=== PATIENT | female | born 1950 | race Caucasian/White ===

== ENCOUNTER 2017-04-03 19:33 | Inpatient (IN) | payer MEDICARE, OTHER ==
[2017-04-03] MEDS ORDERED: IPRATROPIUM 0.5 MG/2.5 ML NEBU INHALATION STA (20:14)
[2017-04-03] MEDS ORDERED: ALBUTEROL NEBULIZED 2.5 MG/3 ML INHALATION STA (20:14)
[2017-04-03] MEDS ORDERED: methylPREDNISolone SOD SUCCI 125 MG/2 ML VIAL IV STA (20:14)
--- NOTE | 2017-04-03 20:18 | ED ---
General Adult HPI - General Chief complaint: Upper Respiratory Infection Stated complaint: Fever 101/Cough Time Seen by Provider: 04/03/17 20:04 Source: patient, RN notes reviewed Mode of arrival: ambulatory Limitations: no limitations - History of Present Illness Initial comments: 66 yo female history of hypertension, A. fib, COPD presenting with 5 days of fever chills and myalgias. Patient developed cough over the past 24 hours, this is tried nonproductive. Patient is accompanied by her son who is a nurse who states she also has had some mild confusion. He did give Tylenol prior to presentation. Patient denies any central chest pain. No known sick contacts.patient denies any abdominal pain, she denies nausea vomiting. Denies diarrhea. Denies dysuria. - Related Data Home Medications Medication Instructions Recorded Confirmed Albuterol Nebulized [Ventolin 2.5 mg INHALATION RT-QID PRN 04/22/15 04/03/17 Nebulized] Celecoxib [CeleBREX] 200 mg PO DAILY 04/22/15 04/03/17 Metoprolol Succinate [Toprol XL] 25 mg PO BID 04/22/15 04/03/17 Multivitamins, Thera [Multivitamin] 1 tab PO HS 04/22/15 04/03/17 Ranitidine HCl [Zantac] 150 mg PO DAILY 04/22/15 04/03/17 Rosuvastatin Calcium [Crestor] 5 mg PO HS 04/22/15 04/03/17 amLODIPine [Norvasc] 5 mg PO BID 04/22/15 04/03/17 Cholecalciferol (Vitamin D3) 4,000 unit PO HS 02/28/17 04/03/17 [Vitamin D3] Letrozole 2.5 mg PO HS 02/28/17 04/03/17 Lisinopril [Prinivil] 40 mg PO HS 02/28/17 04/03/17 Potassium Chloride ER [K-Dur 20] 20 meq PO HS 02/28/17 04/03/17 Rivaroxaban [Xarelto] 20 mg PO HS 02/28/17 04/03/17 traMADol HCl [Ultram] 50 - 100 mg PO Q8H PRN 02/28/17 04/03/17 cloNIDine HCL [Catapres] 0.1 mg PO BID 04/03/17 04/03/17 Allergies Allergy/AdvReac Type Severity Reaction Status Date / Time simvastatin [From Zocor] Allergy Unknown Verified 04/03/17 20:09 codeine AdvReac Nausea & Verified 04/03/17 20:09 Vomiting Penicillins AdvReac Nausea & Verified 04/03/17 20:09 Vomiting Review of Systems ROS Statement: Those systems with pertinent positive or pertinent negative responses have been documented in the HPI. ROS Other: All systems not noted in ROS Statement are negative. Past Medical History Past Medical History: Atrial Fibrillation, Asthma, Cancer, COPD, Deep Vein Thrombosis (DVT), Fibromyalgia, GERD/Reflux, Hyperlipidemia, Hypertension, Osteoarthritis (OA), Pneumonia, Sleep Apnea/CPAP/BIPAP Additional Past Medical History / Comment(s): Recent L ankle fracture with use of crutches-now uses L leg immobilizer, 2016 L breast cancer with surgery and radiation tx, 20 some years ago had mass in bowel (nonhodgkins lymphoma) which was surgically removed and then pt had chemo, "blood clot behind my heart" after bowel surgery, KARI with CPAP, bronchitis, UTIs, osteoarthritis multiple joints, History of Any Multi-Drug Resistant Organisms: None Reported Past Surgical History: Adenoidectomy, Appendectomy, Bowel Resection, Breast Surgery, Cholecystectomy, Hysterectomy, Joint Replacement, Orthopedic Surgery, Tonsillectomy, Tubal Ligation Additional Past Surgical History / Comment(s): L breast core bx, L breast lumpectomy/sentinel node bx, I&D abscess in abdomin after hysterectomy, total R knee arthroplasty, bowel resection for cancer, NAE, colonoscopies. Past Anesthesia/Blood Transfusion Reactions: Previous Problems w/ Anesthesia, Postoperative Nausea & Vomiting (PONV) Additional Past Anesthesia/Blood Transfusion Reaction / Comment(s): States she had a cardiac arrest with last intubation 6 yrs. ago-needs fibro optic intubation. Past Psychological History: No Psychological Hx Reported Smoking Status: Never smoker Past Alcohol Use History: None Reported Past Drug Use History: None Reported - Past Family History Brother(s) Family Medical History: Cancer, Pulmonary Embolus Additional Family Medical History / Comment(s): Non-Hodgin's Lymphoma, Pt. states her brother from a bld. clot. not sure if it was a PE. Sister(s) Family Medical History: Cancer Additional Family Medical History / Comment(s): Non-Hodgkin's Lymphoma General Exam Limitations: no limitations General appearance: alert, in no apparent distress Head exam: Present: atraumatic, normocephalic Eye exam: Present: normal appearance, PERRL ENT exam: Present: normal exam Neck exam: Present: normal inspection. Absent: tenderness, meningismus Respiratory exam: Present: respiratory distress, wheezes, decreased breath sounds Cardiovascular Exam: Present: normal rhythm, tachycardia GI/Abdominal exam: Present: soft. Absent: distended, tenderness, guarding Extremities exam: Present: normal inspection, tenderness (bilateral upper extremity tenderness to palpation), normal capillary refill. Absent: pedal edema Back exam: Present: normal inspection, full ROM. Absent: tenderness Neurological exam: Present: alert, oriented X3, CN II-XII intact. Absent: motor sensory deficit Psychiatric exam: Present: normal affect, normal mood Skin exam: Present: warm, dry, intact, diaphoretic. Absent: cyanosis Course Vital Signs 04/03/17 04/03/17 04/03/17 19:53 20:27 20:35 Temperature 101.0 F H Pulse Rate 106 H 104 H 103 H Respiratory 23 24 Rate Blood Pressure 128/62 125/56 O2 Sat by Pulse 93 L 97 Oximetry 04/03/17 04/03/17 20:57 21:33 Temperature 100.3 F H Pulse Rate 108 H 102 H Respiratory 20 Rate Blood Pressure 125/57 O2 Sat by Pulse 96 Oximetry EKG Findings - EKG Comments: EKG Findings:: EKG shows normal sinus rhythm, left anterior fascicular block, ventricular rate 96, NC 122, QRS duration 12, QTC 419, no signs of ischemia, no ST segment elevation or depression Medical Decision Making - Medical Decision Making 66 yo female presented with cough, fever, and myalgias. Patient is quite dyspneic initially, she has decreased air entry with diffuse wheezing. Laboratory studies are obtained, she is influenza positive, white blood cell count he is leukopenic at 3.2. Hemoglobin 9.0 which is acute change from 12.4. Patient does admit to having some mild epistaxis and minimal bright red rectal bleeding. No melena. Creatinine 1.3 from baseline of 0.86. Troponin is negative. chest x-ray shows no acute cardiopulmonary process, no focal pneumonia. There is numerous nodules appearing opacities bilaterally. Concern for metastatic disease. CT with contrast is recommended, this may be required after renal function is improved. Patient is admitted to the hospital for treatment of COPD exacerbation secondary to influenza, as well as acute kidney injury, and dehydration. - Lab Data Result diagrams: 04/03/17 20:35 04/03/17 20:35 Lab Results 04/03/17 04/03/17 04/03/17 Range/Units 19:58 20:35 20:35 WBC 3.2 L (3.8-10.6) k/uL RBC 2.87 L (3.80-5.40) m/uL Hgb 9.0 L D (11.4-16.0) gm/dL Hct 26.8 L (34.0-46.0) % MCV 93.4 (80.0-100.0) fL MCH 31.3 (25.0-35.0) pg MCHC 33.5 (31.0-37.0) g/dL RDW 15.8 H (11.5-15.5) % Plt Count 123 L (150-450) k/uL Neutrophils % 64 % Lymphocytes % 25 % Monocytes % 8 % Eosinophils % 1 % Basophils % 0 % Neutrophils # 2.0 (1.3-7.7) k/uL Lymphocytes # 0.8 L (1.0-4.8) k/uL Monocytes # 0.3 (0-1.0) k/uL Eosinophils # 0.0 (0-0.7) k/uL Basophils # 0.0 (0-0.2) k/uL Hypochromasia Slight Poikilocytosis Slight VBG pH (7.31-7.41) VBG pCO2 (37-51) mmHg VBG HCO3 (24-28) mmol/L Sodium (137-145) mmol/L Potassium (3.5-5.1) mmol/L Chloride (98-107) mmol/L Carbon Dioxide (22-30) mmol/L Anion Gap mmol/L BUN (7-17) mg/dL Creatinine (0.52-1.04) mg/dL Est GFR (MDRD) Af Amer (>60 ml/min/1.73 sqM) Est GFR (MDRD) Non-Af (>60 ml/min/1.73 sqM) Glucose (74-99) mg/dL Plasma Lactic Acid Roge (0.7-2.0) mmol/L Calcium (8.4-10.2) mg/dL Magnesium (1.6-2.3) mg/dL Total Bilirubin (0.2-1.3) mg/dL AST (14-36) U/L ALT (9-52) U/L Alkaline Phosphatase (38-126) U/L Total Creatine Kinase 20 L (30-135) U/L CK-MB (CK-2) <0.2 (0.0-2.4) ng/mL CK-MB (CK-2) Rel Index Troponin I <0.012 (0.000-0.034) ng/mL Total Protein (6.3-8.2) g/dL Albumin (3.5-5.0) g/dL Influenza Type A RNA Detected H (Not Detectd) Influenza Type B (PCR) Not Detected (Not Detectd) 04/03/17 04/03/17 04/03/17 Range/Units 20:35 20:35 20:35 WBC (3.8-10.6) k/uL RBC (3.80-5.40) m/uL Hgb (11.4-16.0) gm/dL Hct (34.0-46.0) % MCV (80.0-100.0) fL MCH (25.0-35.0) pg MCHC (31.0-37.0) g/dL RDW (11.5-15.5) % Plt Count (150-450) k/uL Neutrophils % % Lymphocytes % % Monocytes % % Eosinophils % % Basophils % % Neutrophils # (1.3-7.7) k/uL Lymphocytes # (1.0-4.8) k/uL Monocytes # (0-1.0) k/uL Eosinophils # (0-0.7) k/uL Basophils # (0-0.2) k/uL Hypochromasia Poikilocytosis VBG pH 7.46 H (7.31-7.41) VBG pCO2 36 L (37-51) mmHg VBG HCO3 25 (24-28) mmol/L Sodium 137 (137-145) mmol/L Potassium 5.1 (3.5-5.1) mmol/L Chloride 100 (98-107) mmol/L Carbon Dioxide 28 (22-30) mmol/L Anion Gap 9 mmol/L BUN 24 H (7-17) mg/dL Creatinine 1.30 H (0.52-1.04) mg/dL Est GFR (MDRD) Af Amer 50 (>60 ml/min/1.73 sqM) Est GFR (MDRD) Non-Af 41 (>60 ml/min/1.73 sqM) Glucose 91 (74-99) mg/dL Plasma Lactic Acid Roge 0.7 (0.7-2.0) mmol/L Calcium 9.3 (8.4-10.2) mg/dL Magnesium 2.1 (1.6-2.3) mg/dL Total Bilirubin 0.8 (0.2-1.3) mg/dL AST 23 (14-36) U/L ALT 42 (9-52) U/L Alkaline Phosphatase 75 (38-126) U/L Total Creatine Kinase (30-135) U/L CK-MB (CK-2) (0.0-2.4) ng/mL CK-MB (CK-2) Rel Index Troponin I (0.000-0.034) ng/mL Total Protein 5.9 L (6.3-8.2) g/dL Albumin 3.5 (3.5-5.0) g/dL Influenza Type A RNA (Not Detectd) Influenza Type B (PCR) (Not Detectd) Disposition Clinical Impression: Influenza, Acute kidney injury, Anemia, COPD exacerbation Disposition: ADMITTED IP TO THIS [facility] Condition: Stable Referrals: Williams Schmid MD [Primary Care Provider] - 1-2 days Time of Disposition: 22:04 Decision to Admit Reason: Admit from EC Decision Date: 04/03/17 Decision Time: 22:04
[2017-04-03 20:57] LABS: Basophils % (A) 0 %; Eosinophils % (A) 1 %; HCT 26.8 % (34.0-46.0); Hypochromasia Slight; Lymphocytes # (A) 0.8 k/uL (1.0-4.8); Lymphocytes % (A) 25 %; MCH 31.3 pg (25.0-35.0); MCHC 33.5 g/dL (31.0-37.0); MCV 93.4 fL (80.0-100.0); Mean Platelet Volume 8.9; Monocytes # (A) 0.3 k/uL (0-1.0); Monocytes % (A) 8 %; Neutrophils % (A) 64 %; Platelet Count 123 k/uL (150-450); Poikilocytosis Slight; RBC 2.87 m/uL (3.80-5.40); RDW 15.8 % (11.5-15.5); WBC 3.2 k/uL (3.8-10.6)
[2017-04-03 21:09] LABS: Albumin 3.5 g/dL (3.5-5.0); Calcium 9.3 mg/dL (8.4-10.2); Magnesium 2.1 mg/dL (1.6-2.3); Potassium 5.1 mmol/L (3.5-5.1); Total Bilirubin 0.8 mg/dL (0.2-1.3); Total Protein 5.9 g/dL (6.3-8.2); VBG PH 7.46 (7.31-7.41)
[2017-04-03 21:17] LABS: Creatine Kinase 20 U/L (30-135)
[2017-04-03] MEDS ORDERED: ACETAMINOPHEN IV (For NPO) 1,000 MG in EMPTY BAG 1 BAG IVPB ONE (21:26)
[2017-04-03] MEDS ORDERED: SODIUM CHLORIDE 0.9% 500 ML IV ONE (21:26)
[2017-04-03] MEDS ORDERED: OSELTAMIVIR 75 MG CAP PO STA (21:27)
[2017-04-03 21:30] LABS: Creatine Kinase MB <0.2 ng/mL (0.0-2.4); Troponin I <0.012 ng/mL (0.000-0.034)
[2017-04-03] MEDS: SODIUM CHLORIDE 0.9% 1,000 ML IV SCH (21:41)
[2017-04-03] MEDS ORDERED: IPRATROPIUM-ALBUTEROL 3 ML NEB INHALATION PRN (21:51)
[2017-04-03] MEDS ORDERED: ACETAMINOPHEN TAB 325 MG TAB PO PRN (21:57)
--- NOTE | 2017-04-03 21:59 | XR ---
EXAMINATION TYPE: XR chest 2V DATE OF EXAM: 04/03/2017 COMPARISON: March 02, 2017 HISTORY: Difficulty breathing TECHNIQUE: Frontal and lateral views of the chest are obtained. FINDINGS: No pneumothorax or pleural effusion is identified. There are numerous small nodular foci i dentified bilaterally which were not as conspicuous on the previous examination and some of which are new. Given patient's history of breast cancer is difficult to fully exclude pulmonary metastasis. Th e cardiac silhouette size is borderline enlarged. The osseous structures are intact. Surgical clips are again noted in left chest wall. IMPRESSION: No acute cardiopulmonary process. Numerous nodular appearing opacities are identified bi laterally. Metastasis is difficult to fully excluded. CT of the thorax is recommended without contras t.
[2017-04-03 22:03] LABS: INR 1.2 (<1.2); Prothrombin Time 11.6 sec (9.0-12.0)
[2017-04-03 22:04] LABS: Partial Thromboplastin Time 22.4 sec (22.0-30.0)
[2017-04-03 22:53] VITALS: BMI 37.5
[2017-04-03] MEDS ORDERED: POTASSIUM CHLORIDE ER 20 MEQ TAB.ER PO SCH (23:15)
[2017-04-03] MEDS: ONDANSETRON 4 MG/2 ML VIAL IVP PRN (23:42)
[2017-04-04] MEDS: traMADol 50 MG TAB PO SCH ×4 (00:23→22:03)
[2017-04-04] MEDS: LETROZOLE 2.5 MG TAB PO SCH ×2 (00:23→22:06)
[2017-04-04] MEDS: ATORVASTATIN 10 MG TAB PO SCH ×2 (00:25→22:06)
[2017-04-04] MEDS: LISINOPRIL 20 MG TAB PO SCH ×2 (00:26→22:06)
[2017-04-04] MEDS: RIVAROXABAN 10 MG TAB PO SCH ×2 (00:26→22:06)
[2017-04-04] MEDS: MULTIVITAMINS, THERA 1 EACH TAB PO SCH ×2 (00:26→22:07)
[2017-04-04 06:26] LABS: Basophils % (A) 0 %; Eosinophils % (A) 0 %; HGB 8.2 gm/dL (11.4-16.0); Hypochromasia Slight; Lymphocytes # (A) 0.3 k/uL (1.0-4.8); Lymphocytes % (A) 14 %; MCHC 31.5 g/dL (31.0-37.0); MCV 95.1 fL (80.0-100.0); Monocytes % (A) 1 %; Neutrophils # (A) 1.7 k/uL (1.3-7.7); Neutrophils % (A) 82 %; Platelet Count 117 k/uL (150-450); Poikilocytosis Slight; RBC 2.73 m/uL (3.80-5.40); RDW 15.3 % (11.5-15.5); WBC 2.1 k/uL (3.8-10.6)
[2017-04-04 06:37] LABS: ALT 39 U/L (9-52); AST 19 U/L (14-36); Albumin 3.2 g/dL (3.5-5.0); Alkaline Phosphatase 72 U/L (38-126); Anion Gap 12 mmol/L; Blood Urea Nitrogen 21 mg/dL (7-17); Calcium 9.1 mg/dL (8.4-10.2); Carbon Dioxide 24 mmol/L (22-30); Chloride 104 mmol/L (98-107); Glucose 189 mg/dL (74-99); Sodium 140 mmol/L (137-145); Total Bilirubin 0.6 mg/dL (0.2-1.3); Total Protein 5.4 g/dL (6.3-8.2)
[2017-04-04 07:37] LABS: Glucose,Whole Blood 192 mg/dL (75-99)
[2017-04-04] MEDS ORDERED: RX INFO: IV CONTRAST WAS GIVEN 1 EACH MISC MISCELLANE PRN (08:23)
[2017-04-04] MEDS: MELOXICAM 7.5 MG TAB PO SCH (08:23)
[2017-04-04] MEDS: cloNIDine HCL 0.1 MG TAB PO SCH ×2 (08:24→23:00)
[2017-04-04] MEDS: amLODIPine 5 MG TAB PO SCH ×2 (08:24→23:00)
[2017-04-04] MEDS: FAMOTIDINE 20 MG TAB PO SCH (08:24)
[2017-04-04] MEDS: SODIUM CHLORIDE 0.9% 1,000 ML IV SCH ×2 (08:24→18:34)
[2017-04-04] MEDS: METOPROLOL TARTRATE 25 MG TAB PO SCH ×2 (08:24→23:00)
[2017-04-04] MEDS ORDERED: OSELTAMIVIR 75 MG CAP PO SCH (09:00)
[2017-04-04] MEDS: predniSONE 20 MG TAB PO SCH (09:03)
[2017-04-04] MEDS: IPRATROPIUM-ALBUTEROL 3 ML NEB INHALATION SCH ×4 (09:11→19:53)
--- NOTE | 2017-04-04 10:03 | P.HPIM ---
History of Present Illness H&P Date: 04/04/17 Chief Complaint: Fever, malaise 66-year-old female who presented to the emergency room on 04/03/2017 with a chief complaint of fever, fatigue, and malaise. The patient states she was has been sleeping for extended periods of time, up to 24 hours at a time last week, which she attributes to a new medication she was started on. She states that over the past four or five days she has had no energy, generalized body aches, fever, and chills. She states that she started coughing on last Tuesday or Tuesday. She states that she tried to drink fluids and continue to eat over the past few days but states that she did have a decrease in her oral intake. She denies chest pain or pressure. Denies nausea or vomiting. Denies abdominal pain. The patient has a history of COPD, fibromyalgia, gastroesophageal reflux disease , deep vein thrombosis, hyperlipidemia, hypertension, osteoarthritis. She fell a few months ago and broke her left ankle and also her humerus. She did not require surgical intervention. She has a nebulizer machine at home but she states that she does not use it often. She does have a history of sleep apnea and uses a CPAP machine nightly. Patient states she had a cardiac arrest approximately 6 years ago and developed atrial fibrillation afterwards. She states that she has not had any further episodes of A. fib to her knowledge. She was diagnosed with a TIA in the winter of 2015 after experiencing left- sided numbness. She takes Xarelto daily for anticoagulation. In the emergency room, a chest x-ray was completed which was negative for an acute abscess. There was numerous nodule appearing opacities bilaterally which metastasis could not be excluded. CT was completed revealing sinus mechanism. Laboratory studies revealed white count of 3.2, platelet count 123, INR 1.2, sodium 137, potassium 5.1, BUN 24, creatinine 1.30, troponin negative 1, BNP 272. Hemoglobin was 9.0. Previous hemoglobin obtained at the end of February 2017 was 12.4. Testing for influenza A was positive. Negative influenza B. Review of Systems GENERAL: Positive for generalized malaise and body aches. Positive for fever and chills. EYES: Denies blurred vision. Denies vision changes. Denies eye pain. EARS, NOSE, MOUTH, & THROAT: Denies headache. Denies sore throat. Denies ear pain. RESPIRATORY: Positive for nonproductive cough. Denies shortness of breath. Denies sputum production. Denies hemoptysis. CARDIOVASCULAR: Denies chest pain or pressure. Denies palpitations. Denies arrhythmias. GASTROINTESTINAL: Denies abdominal pain. Denies diarrhea. Denies constipation. Denies nausea. Denies vomiting. Denies heartburn. Denies blood in the stool. GENITOURINARY: Denies urinary frequency. Denies burning. Denies dysuria. Denies cloudy urine. Denies blood in the urine. MUSCULOSKELETAL: Positive for generalized body aches. Denies joint swelling. Denies decreased range of motion beyond patients baseline. INTEGUMENTARY: Denies pruitis. Denies rash. PSYCHIATRIC: Denies suicidal or homicial ideations. ENDOCRINE: Denies weight change. Denies polydipsia. Denies polyuria. HEMATOLOGIC: Denies bleeding disorders. Past Medical History Past Medical History: Atrial Fibrillation, Asthma, Cancer, COPD, Deep Vein Thrombosis (DVT), Fibromyalgia, GERD/Reflux, Hyperlipidemia, Hypertension, Osteoarthritis (OA), Pneumonia, Sleep Apnea/CPAP/BIPAP Additional Past Medical History / Comment(s): Recent L ankle fracture, 2016 L breast cancer with surgery and radiation tx, 20 some years ago had mass in bowel (nonhodgkins lymphoma) which was surgically removed and then pt had chemo , "blood clot behind my heart" after bowel surgery, KARI with CPAP, bronchitis, UTIs, osteoarthritis multiple joints, History of Any Multi-Drug Resistant Organisms: None Reported Past Surgical History: Adenoidectomy, Appendectomy, Bowel Resection, Breast Surgery, Cholecystectomy, Hysterectomy, Joint Replacement, Orthopedic Surgery, Tonsillectomy, Tubal Ligation Additional Past Surgical History / Comment(s): L breast core bx, L breast lumpectomy/sentinel node bx, I&D abscess in abdomin after hysterectomy, total R knee arthroplasty, bowel resection for cancer, NAE, colonoscopies. Past Anesthesia/Blood Transfusion Reactions: Previous Problems w/ Anesthesia, Postoperative Nausea & Vomiting (PONV) Additional Past Anesthesia/Blood Transfusion Reaction / Comment(s): States she had a cardiac arrest with last intubation 6 yrs. ago-needs fibro optic intubation. Past Psychological History: No Psychological Hx Reported Additional Psychological History / Comment(s): Pt resides alone in an apartment. She has a Cpap machine. She can drive. Smoking Status: Never smoker Past Alcohol Use History: None Reported Past Drug Use History: None Reported - Past Family History Brother(s) Family Medical History: Cancer, Pulmonary Embolus Additional Family Medical History / Comment(s): Non-Hodgin's Lymphoma, Pt. states her brother from a bld. clot. not sure if it was a PE. Sister(s) Family Medical History: Cancer Additional Family Medical History / Comment(s): Non-Hodgkin's Lymphoma Medications and Allergies Home Medications Medication Instructions Recorded Confirmed Type Albuterol Nebulized [Ventolin 2.5 mg INHALATION RT-QID PRN 04/22/15 04/03/17 History Nebulized] Celecoxib [CeleBREX] 200 mg PO DAILY 04/22/15 04/03/17 History Metoprolol Succinate [Toprol XL] 25 mg PO BID 04/22/15 04/03/17 History Multivitamins, Thera [Multivitamin] 1 tab PO HS 04/22/15 04/03/17 History Ranitidine HCl [Zantac] 150 mg PO DAILY 04/22/15 04/03/17 History Rosuvastatin Calcium [Crestor] 5 mg PO HS 04/22/15 04/03/17 History amLODIPine [Norvasc] 5 mg PO BID 04/22/15 04/03/17 History Cholecalciferol (Vitamin D3) 4,000 unit PO HS 02/28/17 04/03/17 History [Vitamin D3] Letrozole 2.5 mg PO HS 02/28/17 04/03/17 History Lisinopril [Prinivil] 40 mg PO HS 02/28/17 04/03/17 History Potassium Chloride ER [K-Dur 20] 20 meq PO HS 02/28/17 04/03/17 History Rivaroxaban [Xarelto] 20 mg PO HS 02/28/17 04/03/17 History traMADol HCl [Ultram] 50 - 100 mg PO Q8H PRN 02/28/17 04/03/17 History cloNIDine HCL [Catapres] 0.1 mg PO BID 04/03/17 04/03/17 History Allergies Allergy/AdvReac Type Severity Reaction Status Date / Time simvastatin [From Zocor] Allergy Unknown Verified 04/03/17 20:09 codeine AdvReac Nausea & Verified 04/03/17 20:09 Vomiting Penicillins AdvReac Nausea & Verified 04/03/17 20:09 Vomiting Physical Exam Vitals: Vital Signs Temp Pulse Pulse Resp BP BP Pulse Ox 04/04/17 07:00 96.7 F L 78 20 131/61 100 04/03/17 23:00 98.7 F 102 H 24 134/58 98 04/03/17 21:33 100.3 F H 102 H 20 125/57 96 04/03/17 20:57 108 H 04/03/17 20:35 103 H 24 125/56 97 04/03/17 20:27 104 H 04/03/17 19:53 101.0 F H 106 H 23 128/62 93 L Intake and Output 04/03/17 04/04/17 04/04/17 22:59 06:59 14:59 Intake Total 100 Balance 100 Intake: Oral 100 Other: # Voids 2 Weight 93 kg 93 kg GENERAL: This is a 66-year-old female in no apparent distress at the time of examination. Pleasant and cooperative. HEENT: Head is atraumatic, normocephalic. Pupils are equal, round, and reactive to light. Sclerae anicteric. Conjunctivae are clear. Mucus membranes of the mouth are moist. Neck is supple. RESPIRATORY: Clear to ausculation. No wheezes, rales, or rhonchi. No use of accessory muscles. Patient maintaining oxygen saturation greater than 92% on 2 L nasal cannula. No chest wall tenderness is noted on palpation or with deep breathing. CARDIOVASCULAR: Regular rate and rhythm. S1 and S2 noted. No systolic or diastolic murmur auscultated. No JVD noted. No S3 or S4 noted. GASTROINTESTINAL: No distention noted. Abdomen soft and round. Normal active bowel sounds auscultated x 4 quadrants. No pain or tenderness noted upon palpation. INTEGUMENTARY: No cyanosis. No jaundice. No rashes noted. No cellulitis noted. EXTREMITIES: 2+ peripheral pulses. No evidence of peripheral edema. No calf tenderness noted. NEUROLOGIC: Cranial nerves II-XII intact. PSYCHIATRIC: Awake, alert, and oriented X 3. Appropriate affect. Intact judgement and insight. Results CBC & Chem 7: 04/04/17 05:15 04/04/17 05:15 Labs: Abnormal Lab Results - Last 24 Hours (Table) 04/03/17 04/03/17 04/03/17 Range/Units 19:58 20:35 20:35 WBC 3.2 L (3.8-10.6) k/uL RBC 2.87 L (3.80-5.40) m/uL Hgb 9.0 L D (11.4-16.0) gm/dL Hct 26.8 L (34.0-46.0) % RDW 15.8 H (11.5-15.5) % Plt Count 123 L (150-450) k/uL Lymphocytes # 0.8 L (1.0-4.8) k/uL INR (<1.2) VBG pH (7.31-7.41) VBG pCO2 (37-51) mmHg BUN (7-17) mg/dL Creatinine (0.52-1.04) mg/dL Glucose (74-99) mg/dL POC Glucose (mg/dL) (75-99) mg/dL Total Creatine Kinase 20 L (30-135) U/L Total Protein (6.3-8.2) g/dL Albumin (3.5-5.0) g/dL Influenza Type A RNA Detected H (Not Detectd) 04/03/17 04/03/17 04/03/17 Range/Units 20:35 20:35 20:35 WBC (3.8-10.6) k/uL RBC (3.80-5.40) m/uL Hgb (11.4-16.0) gm/dL Hct (34.0-46.0) % RDW (11.5-15.5) % Plt Count (150-450) k/uL Lymphocytes # (1.0-4.8) k/uL INR 1.2 H (<1.2) VBG pH 7.46 H (7.31-7.41) VBG pCO2 36 L (37-51) mmHg BUN 24 H (7-17) mg/dL Creatinine 1.30 H (0.52-1.04) mg/dL Glucose (74-99) mg/dL POC Glucose (mg/dL) (75-99) mg/dL Total Creatine Kinase (30-135) U/L Total Protein 5.9 L (6.3-8.2) g/dL Albumin (3.5-5.0) g/dL Influenza Type A RNA (Not Detectd) 04/04/17 04/04/17 04/04/17 Range/Units 05:15 05:15 07:26 WBC 2.1 L (3.8-10.6) k/uL RBC 2.73 L (3.80-5.40) m/uL Hgb 8.2 L (11.4-16.0) gm/dL Hct 26.0 L (34.0-46.0) % RDW (11.5-15.5) % Plt Count 117 L (150-450) k/uL Lymphocytes # 0.3 L (1.0-4.8) k/uL INR (<1.2) VBG pH (7.31-7.41) VBG pCO2 (37-51) mmHg BUN 21 H (7-17) mg/dL Creatinine 1.10 H (0.52-1.04) mg/dL Glucose 189 H (74-99) mg/dL POC Glucose (mg/dL) 192 H (75-99) mg/dL Total Creatine Kinase (30-135) U/L Total Protein 5.4 L (6.3-8.2) g/dL Albumin 3.2 L (3.5-5.0) g/dL Influenza Type A RNA (Not Detectd) Thrombosis Risk Factor Assmnt - Choose All That Apply Any of the Below Risk Factors Present?: Yes Each Factor Represents 1 point: Obesity (BMI >25) Other Risk Factors: Yes Each Risk Factor Represents 2 Points: Age 61-74 years, Malignancy Other congenital or acquired thrombophilia - If yes, enter type in comment: No Thrombosis Risk Factor Assessment Total Risk Factor Score: 5 Thrombosis Risk Factor Assessment Level: High Risk Assessment and Plan Plan: ASSESSMENT: Generalized malaise, fever, and cough secondary to acute influenza A Normocytic, normochromic anemia, anemia panel pending, no obvious acute blood loss Acute kidney injury, creatinine 1.3 on admission, baseline 0.80, secondary to decreased oral intake Dehydration secondary to decreased oral intake Mild hyperkalemia, secondary to potassium supplement and BRADLEY, improving Hyperglycemia, may be secondary to steroid administration Recent fall with subsequent left ankle fracture and left humerus fracture, not requiring surgical intervention History of atrial fibrillation, maintained on long-term anticoagulation with Xarelto History of transient ischemic attack History of deep pain thrombosis Essential hypertension Hyperlipidemia Fibromyalgia Obstructive sleep apnea, patient is compliant with CPAP machine Gastroesophageal reflux disease Obesity: BMI 37.5 PLAN: -Obtain CT of the chest with IV contrast -Consult forming acid dumper secondary to pulmonary nodules -Continue Tamiflu -Continue IV hydration -Discontinue potassium supplement secondary to mild hyperkalemia -Obtain TIBC, ferritin, reticulocyte count -Repeat hemoglobin at 1400 -Capillary blood glucose accu-checks AC/HS secondary to hyperglycemia -NovoLog sliding scale insulin coverage AC/HS secondary to hyperglycemia -Home meds as appropriate -Monitor labs -GI prophylaxis: Pepcid 20 mg by mouth daily -DVT prophylaxis: Xarelto 20 mg PO daily -Monitor vital signs and address as appropriate -Discharge planning: Patient lives independently in an apartment -Further recommendations pending patient's course Nurse practitioner note has been reviewed by physician. Signing provider agrees with the documented findings, assessment, and plan of care.
[2017-04-04 10:18] LABS: Reticulocyte % 4.7 % (0.5-2.0)
--- NOTE | 2017-04-04 10:51 | CT ---
EXAMINATION TYPE: CT chest w con DATE OF EXAM: 04/04/2017 COMPARISON: Radiographs 04/03/2017 HISTORY: 66-year-old female Abnormal CXR TECHNIQUE: Contiguous axial scanning of the chest after the administration of 100 ml mL of Omnipaque 300. Coronal/sagittal reconstructions performed. CT DLP: 589.40mGycm. Automatic exposure control utilized for a dose reduction. FINDINGS: Surgical clips involving the medial left breast likely relating to prior excision/lobectomy. Heart upper limits of normal in size without pericardial effusion. Coronary vessel calcifications are present in remarkable for coronary artery disease. Ascending aorta is ectatic at 3.9 cm with mild atherosclerotic arch calcifications and conventional a [facility] vessel branching anatomy. No thoracic lymphadenopathy by CT size criteria. Evaluation of the lungs shows no consolidation or pleural effusion. - There is a 5 mm anterior right midlung pulmonary nodule axial image 26. - 4 mm inferior lingular pulmonary nodule axial image 37. Some inferior lingular atelectasis is present. Visualized upper abdomen shows spleen appear upper limits of normal in size at 13.6 cm. Punctate nono bstructive 2 mm left lower pole renal calculus. Anterior and hilar splenules. Some surgical material along the left omentum. Peripherally calcified partially visualized nodule left paramedian supraumbil ical region just overlying the abdominal wall musculature measuring 1.5 cm, may represent postsurgica l sequela. Cholecystectomy clips. Bones: Endplate spondylosis midthoracic spine. No osseous destructive process. Advanced degenerative changes bilateral glenohumeral joints. IMPRESSION: 1. Nodularity seen on patient's 04/03/2017 radiographs was overestimated and likely relates to promine nt vessels on end magnified due to patient body habitus and portable technique. 2. A 5 mm right-sided and 4 mm lingular pulmonary nodule. One-year follow-up exam recommended. 3. Ectatic ascending aorta at 3.9 cm. 4. Postsurgical changes in the medial left breast. Additional surgical material in the upper abdomen. 5. Punctate 2 mm nonobstructive left renal calculus.
[2017-04-04 12:27] LABS: Glucose,Whole Blood 223 mg/dL (75-99)
[2017-04-04] MEDS: INSULIN ASPART 100 UNIT/ML 1 ML 10 ML VIAL SQ SCH ×3 (12:36→23:00)
[2017-04-04 15:13] LABS: HCT 25.9 % (34.0-46.0); HGB 8.5 gm/dL (11.4-16.0); Hypochromasia Slight; MCHC 32.8 g/dL (31.0-37.0); MCV 94.5 fL (80.0-100.0); Mean Platelet Volume 9.3; Platelet Count 115 k/uL (150-450); Poikilocytosis Slight; RBC 2.74 m/uL (3.80-5.40); RDW 15.5 % (11.5-15.5); WBC 3.3 k/uL (3.8-10.6)
--- NOTE | 2017-04-04 16:00 | P.CNPUL ---
History of Present Illness Consult date: 04/04/17 Chief complaint: Generalized weakness, cough and diffuse body aches History of present illness: A very pleasant 66-year-old female patient, morbidly obese, known history of COPD, and history of obstructive sleep apnea and she uses a CPAP machine on outpatient basis, started getting sick over the past several days. The patient presented to the ED with generalized weakness, diffuse body aches, some chills and fever and she also reported some limited cough. No chest pain. No pleurisy. She was very weak and at one point she was noted to have some altered mentation without any headache or any neck stiffness. Ultimately her mental status normalized and she was brought into the hospital where she was found to have positive influenza A negative influenza B and she was started on IV fluids and Tamiflu. Note that the patient had a fall approximately a month and a half ago with fracture in her right ankle and subsequently she had another fall resulting into a humeral injury. All these orthopedic complications were treated appropriately. She is resting comfortably in bed. Her chest x-ray showed no acute abnormalities. CAT scan of the chest was also done and it showed no acute abnormalities. There was a 4 mm lingular nodule that warrants no further investigation. The ascending aorta was ectatic measuring 2.9 cm in size. Postsurgical changes were seen in the left breast. There is also a left renal calculus measuring 2 mm in size. Blood work shows no significant leukocytosis. The patient is a chronic anemia. Creatinine is 1.1 and the patient is producing adequate amount of urine output. Troponin is negative. BNP level was nonelevated. Review of Systems GENERAL: Positive for generalized malaise and body aches. Positive for fever and chills. EYES: Denies blurred vision. Denies vision changes. Denies eye pain. EARS, NOSE, MOUTH, & THROAT: Denies headache. Denies sore throat. Denies ear pain. RESPIRATORY: Positive for nonproductive cough. Denies shortness of breath. Denies sputum production. Denies hemoptysis. CARDIOVASCULAR: Denies chest pain or pressure. Denies palpitations. Denies arrhythmias. GASTROINTESTINAL: Denies abdominal pain. Denies diarrhea. Denies constipation. Denies nausea. Denies vomiting. Denies heartburn. Denies blood in the stool. GENITOURINARY: Denies urinary frequency. Denies burning. Denies dysuria. Denies cloudy urine. Denies blood in the urine. MUSCULOSKELETAL: Positive for generalized body aches. Denies joint swelling. Denies decreased range of motion beyond patients baseline. INTEGUMENTARY: Denies pruitis. Denies rash. PSYCHIATRIC: Denies suicidal or homicial ideations. ENDOCRINE: Denies weight change. Denies polydipsia. Denies polyuria. HEMATOLOGIC: Denies bleeding disorders. 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 Past Anesthesia/Blood Transfusion Reactions: Previous Problems w/ Anesthesia, Postoperative Nausea & Vomiting (PONV) Additional Past Anesthesia/Blood Transfusion Reaction / Comment(s): States she had a cardiac arrest with last intubation 6 yrs. ago-needs fibro optic intubation. Past Psychological History: No Psychological Hx Reported Additional Psychological History / Comment(s): Pt resides alone in an apartment. She has a Cpap machine. She can drive. Smoking Status: Never smoker Past Alcohol Use History: None Reported Past Drug Use History: None Reported - Past Family History Brother(s) Family Medical History: Cancer, Pulmonary Embolus Additional Family Medical History / Comment(s): Non-Hodgin's Lymphoma, Pt. states her brother from a bld. clot. not sure if it was a PE. Sister(s) Family Medical History: Cancer Additional Family Medical History / Comment(s): Non-Hodgkin's Lymphoma Medications and Allergies Home Medications Medication Instructions Recorded Confirmed Type Albuterol Nebulized [Ventolin 2.5 mg INHALATION RT-QID PRN 04/22/15 04/03/17 History Nebulized] Celecoxib [CeleBREX] 200 mg PO DAILY 04/22/15 04/03/17 History Metoprolol Succinate [Toprol XL] 25 mg PO BID 04/22/15 04/03/17 History Multivitamins, Thera [Multivitamin] 1 tab PO HS 04/22/15 04/03/17 History Ranitidine HCl [Zantac] 150 mg PO DAILY 04/22/15 04/03/17 History Rosuvastatin Calcium [Crestor] 5 mg PO HS 04/22/15 04/03/17 History amLODIPine [Norvasc] 5 mg PO BID 04/22/15 04/03/17 History Cholecalciferol (Vitamin D3) 4,000 unit PO HS 02/28/17 04/03/17 History [Vitamin D3] Letrozole 2.5 mg PO HS 02/28/17 04/03/17 History Lisinopril [Prinivil] 40 mg PO HS 02/28/17 04/03/17 History Potassium Chloride ER [K-Dur 20] 20 meq PO HS 02/28/17 04/03/17 History Rivaroxaban [Xarelto] 20 mg PO HS 02/28/17 04/03/17 History traMADol HCl [Ultram] 50 - 100 mg PO Q8H PRN 02/28/17 04/03/17 History cloNIDine HCL [Catapres] 0.1 mg PO BID 04/03/17 04/03/17 History Allergies Allergy/AdvReac Type Severity Reaction Status Date / Time simvastatin [From Zocor] Allergy Unknown Verified 04/03/17 20:09 codeine AdvReac Nausea & Verified 04/03/17 20:09 Vomiting Penicillins AdvReac Nausea & Verified 04/03/17 20:09 Vomiting Physical Exam Vitals: Vital Signs Temp Pulse Pulse Resp BP BP Pulse Ox 04/04/17 15:00 97.8 F 85 20 117/63 95 04/04/17 09:22 80 04/04/17 09:11 76 04/04/17 07:00 96.7 F L 78 20 131/61 100 04/03/17 23:00 98.7 F 102 H 24 134/58 98 04/03/17 21:33 100.3 F H 102 H 20 125/57 96 04/03/17 20:57 108 H 04/03/17 20:35 103 H 24 125/56 97 04/03/17 20:27 104 H 04/03/17 19:53 101.0 F H 106 H 23 128/62 93 L Intake and Output 04/04/17 04/04/17 04/04/17 06:59 14:59 22:59 Intake Total 100 120 Balance 100 120 Intake: Oral 100 120 Other: Voiding Method Bedside Commode # Voids 2 1 Weight 93 kg GENERAL: This is a 66-year-old female in no apparent distress at the time of examination. Pleasant and cooperative. HEENT: Head is atraumatic, normocephalic. Pupils are equal, round, and reactive to light. Sclerae anicteric. Conjunctivae are clear. Mucus membranes of the mouth are moist. Neck is supple. Patient has a Mallampati class IV with significant crowding of the posterior oropharynx. RESPIRATORY: Clear to ausculation. No wheezes, rales, or rhonchi. No use of accessory muscles. Patient maintaining oxygen saturation greater than 92% on 2 L nasal cannula. No chest wall tenderness is noted on palpation or with deep breathing. CARDIOVASCULAR: Regular rate and rhythm. S1 and S2 noted. No systolic or diastolic murmur auscultated. No JVD noted. No S3 or S4 noted. GASTROINTESTINAL: No distention noted. Abdomen soft and round. Normal active bowel sounds auscultated x 4 quadrants. No pain or tenderness noted upon palpation. INTEGUMENTARY: No cyanosis. No jaundice. No rashes noted. No cellulitis noted. EXTREMITIES: 2+ peripheral pulses. No evidence of peripheral edema. No calf tenderness noted. NEUROLOGIC: Cranial nerves II-XII intact. PSYCHIATRIC: Awake, alert, and oriented X 3. Appropriate affect. Intact judgement and insight. Results - Laboratory Findings CBC and BMP: 04/04/17 14:54 04/04/17 05:15 PT/INR, D-dimer PT 11.6 sec (9.0-12.0) 04/03/17 20:35 INR 1.2 (<1.2) H 04/03/17 20:35 Abnormal lab findings: Abnormal Labs 04/03/17 04/03/17 04/03/17 19:58 20:35 20:35 WBC 3.2 L RBC 2.87 L Hgb 9.0 L D Hct 26.8 L RDW 15.8 H Plt Count 123 L Lymphocytes # 0.8 L Retic Count INR VBG pH VBG pCO2 BUN Creatinine Glucose POC Glucose (mg/dL) Total Creatine Kinase 20 L Total Protein Albumin Influenza Type A RNA Detected H 04/03/17 04/03/17 04/03/17 20:35 20:35 20:35 WBC RBC Hgb Hct RDW Plt Count Lymphocytes # Retic Count INR 1.2 H VBG pH 7.46 H VBG pCO2 36 L BUN 24 H Creatinine 1.30 H Glucose POC Glucose (mg/dL) Total Creatine Kinase Total Protein 5.9 L Albumin Influenza Type A RNA 04/04/17 04/04/17 04/04/17 05:15 05:15 05:15 WBC 2.1 L RBC 2.73 L Hgb 8.2 L Hct 26.0 L RDW Plt Count 117 L Lymphocytes # 0.3 L Retic Count 4.7 H INR VBG pH VBG pCO2 BUN 21 H Creatinine 1.10 H Glucose 189 H POC Glucose (mg/dL) Total Creatine Kinase Total Protein 5.4 L Albumin 3.2 L Influenza Type A RNA 04/04/17 04/04/17 04/04/17 07:26 11:45 14:54 WBC 3.3 L RBC 2.74 L Hgb 8.5 L Hct 25.9 L RDW Plt Count 115 L Lymphocytes # Retic Count INR VBG pH VBG pCO2 BUN Creatinine Glucose POC Glucose (mg/dL) 192 H 223 H Total Creatine Kinase Total Protein Albumin Influenza Type A RNA - Diagnostic Findings Chest x-ray: image reviewed CT scan - chest: image reviewed Assessment and Plan Plan: Assessment 1 acute influenza A infection involving the respiratory tract and the patient has associated systemic illness from influenza syndrome, currently on Tamiflu 2 morbid obesity 3 chronic bronchial asthma 4 obstructive sleep apnea maintained on CPAP therapy 5 fibromyalgia 6 hypertension 7 hyperlipidemia 8 remote history of breast cancer, surgically resected 9 remote history of non-Hodgkin's lymphoma of the bowel, surgically resected subsequent chemotherapy 10 history of recurrent falls with left ankle fracture and left humeral fracture not requiring any surgical intervention 11 acute kidney injury with a creatinine of 1.3, improving and the creatinine is down to 1.1 with a baseline creatinine of 0.8 12 chronic normocytic anemia 13 nonobstructive left renal calculus 14 approximately 2 fibrillation Plan Hydrate the patient IV fluids. Continue the Tamiflu and a prednisone burst taper monitor the blood sugars. Resume outpatient medication. Monitor renal function. Anticipate improvement in her constitutional symptoms and would like to discharge this patient with the next 24-48 hours. Family is at the bedside.
[2017-04-04 17:30] LABS: Hemoglobin A1C 4.8 % (4.0-6.0)
[2017-04-04 17:46] LABS: Glucose,Whole Blood 161 mg/dL (75-99)
[2017-04-04 19:44] LABS: Iron Saturation 6.7 (12.00-45.00)
[2017-04-04 21:48] LABS: Glucose,Whole Blood 226 mg/dL (75-99)
[2017-04-04] MEDS: ONDANSETRON 4 MG/2 ML VIAL IVP PRN (22:05)
[2017-04-04] MEDS: OSELTAMIVIR 60 MG/10 ML ORAL SYRINGE PO SCH (22:07)
[2017-04-05] MEDS: SODIUM CHLORIDE 0.9% 1,000 ML IV SCH ×3 (03:11→21:55)
[2017-04-05] MEDS: INSULIN ASPART 100 UNIT/ML 1 ML 10 ML VIAL SQ SCH ×4 (07:36→21:33)
[2017-04-05] MEDS: OSELTAMIVIR 60 MG/10 ML ORAL SYRINGE PO SCH ×2 (07:38→21:32)
[2017-04-05] MEDS: FAMOTIDINE 20 MG TAB PO SCH (07:39)
[2017-04-05] MEDS: MELOXICAM 7.5 MG TAB PO SCH (07:39)
[2017-04-05] MEDS: cloNIDine HCL 0.1 MG TAB PO SCH ×2 (07:39→21:33)
[2017-04-05] MEDS: METOPROLOL TARTRATE 25 MG TAB PO SCH ×2 (07:39→21:33)
[2017-04-05] MEDS: predniSONE 20 MG TAB PO SCH (07:40)
[2017-04-05] MEDS: traMADol 50 MG TAB PO SCH ×3 (07:40→21:35)
[2017-04-05] MEDS: amLODIPine 5 MG TAB PO SCH ×2 (07:40→21:33)
[2017-04-05 07:45] LABS: Glucose,Whole Blood 111 mg/dL (75-99)
--- NOTE | 2017-04-05 08:24 | CDI ---
Last Revision, February 2017 Documentation Clarification Form Date: 04/05/2017 8:03:00 AM From: Ana Khan [facility], CCDS Admit Date: 04/03/2017 9:51:00 PM Patient Name: Arcelia Moya Visit Number: [id number] Discharge Date: ATTENTION: The Clinical Documentation Specialists (CDI) and [facility] Coding Staff appreciate your assistance in clarifying documentation. Please respond to the clarification below the line at the bottom and electronically sign. The CDI & [facility] Coding staff will review the response and follow-up if needed. Please note: Queries are made part of the Legal Health Record. If you have any questions, please contact the author of this message via ITS. Dr. Williams Schmid: Patient is admitted with Influenza A, Acute Kidney Failure and normocytic anemia nos. Patient history/risk factors: NonHodgkin's Lymphoma, Left Breast CA sp chemo, COPD. Clinical Indicators: Radiology: Pulmonary nodules Labs: WBC 3.2*, RBC 2.87*, Hgb 9.0*, Hct 26.8*, Pl Ct 123* Vital Signs: T 101.0, P 106, R 23, BP 128/62, PO 93 ra Treatment: Tamiflu, Albuterol Neb INH, Kcl 20 meq, IV Zofran, IV Tylenol, IV fluid bolus, IV fluid rate 100, IV Solumedrol, O2 2Lnc In your professional opinion, can you please clarify if these findings signify one of the following conditions? Pancytopenia drug induced, specify drug Pancytopenia due to other, please specify Anemia, please specify etiology Other, please specify: Unknown or undetermined. Please continue to document in your progress notes and discharge summary in order to capture severity of illness and risk of mortality. Include clinical findings that support your diagnosis. MTDD
--- NOTE | 2017-04-05 08:28 | P.PN ---
Subjective Progress Note Date: 04/05/17 66-year-old female who presented to the emergency room on 04/03/2017 with a chief complaint of fever, fatigue, and malaise. The patient states she was has been sleeping for extended periods of time, up to 24 hours at a time last week, which she attributes to a new medication she was started on. She states that over the past four or five days she has had no energy, generalized body aches, fever, and chills. She states that she started coughing on last Tuesday or Tuesday. She states that she tried to drink fluids and continue to eat over the past few days but states that she did have a decrease in her oral intake. She denies chest pain or pressure. Denies nausea or vomiting. Denies abdominal pain. The patient has a history of COPD, fibromyalgia, gastroesophageal reflux disease , deep vein thrombosis, hyperlipidemia, hypertension, osteoarthritis. She fell a few months ago and broke her left ankle and also her humerus. She did not require surgical intervention. She has a nebulizer machine at home but she states that she does not use it often. She does have a history of sleep apnea and uses a CPAP machine nightly. Patient states she had a cardiac arrest approximately 6 years ago and developed atrial fibrillation afterwards. She states that she has not had any further episodes of A. fib to her knowledge. She was diagnosed with a TIA in the winter of 2015 after experiencing left- sided numbness. She takes Xarelto daily for anticoagulation. In the emergency room, a chest x-ray was completed which was negative for an acute abscess. There was numerous nodule appearing opacities bilaterally which metastasis could not be excluded. CT was completed revealing sinus mechanism. Laboratory studies revealed white count of 3.2, platelet count 123, INR 1.2, sodium 137, potassium 5.1, BUN 24, creatinine 1.30, troponin negative 1, BNP 272. Hemoglobin was 9.0. Previous hemoglobin obtained at the end of February 2017 was 12.4. Testing for influenza A was positive. Negative influenza B. 04/05/2017 Patient seen and examined at the bedside on rounds with Dr. Schmid. Patient underwent CT of the chest on 04/04/2017 which revealed that nodularity seen on chest xray was overestimated and likely related to prominent vessels. It did show a 5mm right-sided and 4mm lingular pulmonary nodule. One year follow up exam was recommended. Patient states she feels very weak. Patient continues to have nonproductive cough. She is on room air with oxygen saturations greater than 92%. She complains of severe pain in her bilateral upper extremities. Patient did recently fracture left humerus and was evaluated by orthopedics during previous admission. She states she had a scheduled follow up appointment yesterday. The patient also has a history of polymyalgia rheumatica and was recently treated with IV steroids. Patient states she worked with physical therapy yesterday. She is considering ECF at the time of discharge if she does not feel strong enough to go home. Objective - Vital Signs Vital signs: Vital Signs Temp 98.2 F 04/05/17 07:00 Pulse 87 04/05/17 07:00 Resp 20 04/05/17 07:00 BP 178/86 04/05/17 07:00 Pulse Ox 94 L 04/05/17 07:00 Intake & Output 04/04/17 04/05/17 04/05/17 18:59 06:59 18:59 Intake Total 120 600 Balance 120 600 Weight 93 kg Intake: Oral 120 600 Other: Voiding Method Bedside Commode Bedside Commode # Voids 1 3 - Exam GENERAL: This is a 66-year-old female in no apparent distress at the time of examination. Pleasant and cooperative. HEENT: Head is atraumatic, normocephalic. Pupils are equal, round, and reactive to light. Sclerae anicteric. Conjunctivae are clear. Mucus membranes of the mouth are moist. Neck is supple. RESPIRATORY: Clear to ausculation. No wheezes, rales, or rhonchi. No use of accessory muscles. Patient maintaining oxygen saturation greater than 92% on room air. No chest wall tenderness is noted on palpation or with deep breathing. CARDIOVASCULAR: Regular rate and rhythm. S1 and S2 noted. No systolic or diastolic murmur auscultated. No JVD noted. No S3 or S4 noted. GASTROINTESTINAL: No distention noted. Abdomen soft and round. Normal active bowel sounds auscultated x 4 quadrants. No pain or tenderness noted upon palpation. INTEGUMENTARY: No cyanosis. No jaundice. No rashes noted. No cellulitis noted. EXTREMITIES: 2+ peripheral pulses. No evidence of peripheral edema. No calf tenderness noted. NEUROLOGIC: Cranial nerves II-XII intact. PSYCHIATRIC: Awake, alert, and oriented X 3. Appropriate affect. Intact judgement and insight. - Labs CBC & Chem 7: 04/04/17 14:54 04/04/17 05:15 Labs: Abnormal Lab Results - Last 24 Hours (Table) 04/04/17 04/04/17 04/04/17 Range/Units 05:15 05:15 11:45 WBC (3.8-10.6) k/uL RBC (3.80-5.40) m/uL Hgb (11.4-16.0) gm/dL Hct (34.0-46.0) % Plt Count (150-450) k/uL Retic Count 4.7 H (0.5-2.0) % POC Glucose (mg/dL) 223 H (75-99) mg/dL Iron 15 L (50-170) ug/dL TIBC 224 L (228-460) ug/dL Iron Saturation 6.70 L (12.00-45.00) Ferritin 639.1 H (10.0-291.0) ng/mL 04/04/17 04/04/17 04/04/17 Range/Units 14:54 17:33 21:39 WBC 3.3 L (3.8-10.6) k/uL RBC 2.74 L (3.80-5.40) m/uL Hgb 8.5 L (11.4-16.0) gm/dL Hct 25.9 L (34.0-46.0) % Plt Count 115 L (150-450) k/uL Retic Count (0.5-2.0) % POC Glucose (mg/dL) 161 H 226 H (75-99) mg/dL Iron (50-170) ug/dL TIBC (228-460) ug/dL Iron Saturation (12.00-45.00) Ferritin (10.0-291.0) ng/mL 04/05/17 Range/Units 07:33 WBC (3.8-10.6) k/uL RBC (3.80-5.40) m/uL Hgb (11.4-16.0) gm/dL Hct (34.0-46.0) % Plt Count (150-450) k/uL Retic Count (0.5-2.0) % POC Glucose (mg/dL) 111 H (75-99) mg/dL Iron (50-170) ug/dL TIBC (228-460) ug/dL Iron Saturation (12.00-45.00) Ferritin (10.0-291.0) ng/mL Microbiology - Last 24 Hours (Table) 04/03/17 20:35 Blood Culture - Preliminary Blood No Growth after 24 hours Assessment and Plan Plan: ASSESSMENT: Generalized malaise, fever, and cough secondary to acute influenza A Normocytic, normochromic anemia, likely mixed anemia of chronic disease with aspect of iron deficiency Acute kidney injury, creatinine 1.3 on admission, baseline 0.80, secondary to decreased oral intake Dehydration secondary to decreased oral intake Mild hyperkalemia, secondary to potassium supplement and BRADLEY, improving Hyperglycemia, secondary to steroid administration Recent fall with subsequent left ankle fracture and left humerus fracture, not requiring surgical intervention Severe pain to bilateral upper extremities, may be secondary to recent left humerus fracture or polymyalgia rheumatica History of atrial fibrillation, maintained on long-term anticoagulation with Xarelto History of transient ischemic attack History of deep pain thrombosis Essential hypertension Hyperlipidemia Fibromyalgia Obstructive sleep apnea, patient is compliant with CPAP machine Gastroesophageal reflux disease Obesity: BMI 37.5 PLAN: -Await results of lab work from this morning -Pulmonology on consult. Appreciate recommendations and input -Consult orthopedics secondary to pain in bilateral upper extremities -Obtain sed rate -Begin patient on ferrous sulfate 325mg PO BID per Dr. Schmid -Continue Tamiflu -Continue IV hydration -Continue to hold potassium supplement secondary to mild hyperkalemia on admission -Capillary blood glucose accu-checks AC/HS secondary to hyperglycemia -NovoLog sliding scale insulin coverage AC/HS secondary to hyperglycemia -Home meds as appropriate -Monitor labs -GI prophylaxis: Pepcid 20 mg by mouth daily -DVT prophylaxis: Xarelto 20 mg PO daily -Monitor vital signs and address as appropriate -Discharge planning: Physical therapy recommending subacute rehab at the time of discharge -Further recommendations pending patient's course Nurse practitioner note has been reviewed by physician. Signing provider agrees with the documented findings, assessment, and plan of care.
[2017-04-05] MEDS: FERROUS SULFATE 325 MG TAB PO SCH ×2 (08:31→17:47)
[2017-04-05 08:52] LABS: Basophils % (A) 0 %; Eosinophils % (A) 1 %; HCT 25.8 % (34.0-46.0); HGB 8.1 gm/dL (11.4-16.0); Hypochromasia Slight; Lymphocytes # (A) 0.6 k/uL (1.0-4.8); Lymphocytes % (A) 13 %; MCHC 31.4 g/dL (31.0-37.0); MCV 95.7 fL (80.0-100.0); Mean Platelet Volume 8.9; Monocytes # (A) 0.2 k/uL (0-1.0); Monocytes % (A) 6 %; Neutrophils # (A) 3.4 k/uL (1.3-7.7); Neutrophils % (A) 79 %; Platelet Count 132 k/uL (150-450); Poikilocytosis Slight; RDW 14.5 % (11.5-15.5); WBC 4.3 k/uL (3.8-10.6)
[2017-04-05] MEDS: IPRATROPIUM-ALBUTEROL 3 ML NEB INHALATION SCH ×5 (09:25→19:12)
[2017-04-05 10:26] LABS: Anion Gap 8 mmol/L; Blood Urea Nitrogen 15 mg/dL (7-17); Carbon Dioxide 23 mmol/L (22-30); Chloride 111 mmol/L (98-107); Glucose 95 mg/dL (74-99); Potassium 4.8 mmol/L (3.5-5.1); Sodium 142 mmol/L (137-145)
[2017-04-05 12:16] LABS: Glucose,Whole Blood 172 mg/dL (75-99)
--- NOTE | 2017-04-05 12:36 | P.PN ---
Subjective Progress Note Date: 04/05/17 Principal diagnosis: Acute influenza A infection A very pleasant 66-year-old female patient, morbidly obese, known history of COPD, and history of obstructive sleep apnea and she uses a CPAP machine on outpatient basis, started getting sick over the past several days. The patient presented to the ED with generalized weakness, diffuse body aches, some chills and fever and she also reported some limited cough. No chest pain. No pleurisy. She was very weak and at one point she was noted to have some altered mentation without any headache or any neck stiffness. Ultimately her mental status normalized and she was brought into the hospital where she was found to have positive influenza A negative influenza B and she was started on IV fluids and Tamiflu. Note that the patient had a fall approximately a month and a half ago with fracture in her right ankle and subsequently she had another fall resulting into a humeral injury. All these orthopedic complications were treated appropriately. She is resting comfortably in bed. Her chest x-ray showed no acute abnormalities. CAT scan of the chest was also done and it showed no acute abnormalities. There was a 4 mm lingular nodule that warrants no further investigation. The ascending aorta was ectatic measuring 2.9 cm in size. Postsurgical changes were seen in the left breast. There is also a left renal calculus measuring 2 mm in size. Blood work shows no significant leukocytosis. The patient is a chronic anemia. Creatinine is 1.1 and the patient is producing adequate amount of urine output. Troponin is negative. BNP level was nonelevated. On 04/05/2017 patient seen in follow-up. Denies any r, she has been up ambulating in the hallway, tolerating it well. Lung sounds are clear, diminished, no rhonchi no wheezes noted. No significant sputum production or chest congestion. On room air with O2 sat at 94%. No febrile episodes in the last 24 hours. Today's lab work shows the WBC within normal limits at 4.3, hemoglobin is 8.1, B1 of 15, and creatinine of 1.08. She has refused receiving Tamiflu, oral prednisone and nebulized treatments. Her biggest concern today is her ongoing bilateral shoulder motion limitation and pain. Orthopedic consult ordered in regards to that. Physical therapy has recommended subacute rehab placement at the time of discharge. Objective - Vital Signs Vital signs: Vital Signs Temp 98.2 F 04/05/17 07:00 Pulse 88 04/05/17 09:56 Resp 20 04/05/17 07:00 BP 178/86 04/05/17 07:00 Pulse Ox 94 L 04/05/17 07:00 Intake & Output 04/04/17 04/05/17 04/05/17 18:59 06:59 18:59 Intake Total 120 600 Balance 120 600 Weight 93 kg Intake: Oral 120 600 Other: Voiding Method Bedside Commode Bedside Commode # Voids 1 3 - Exam GENERAL: This is a 66-year-old female in no apparent distress at the time of examination. Pleasant and cooperative. HEENT: Head is atraumatic, normocephalic. Pupils are equal, round, and reactive to light. Sclerae anicteric. Conjunctivae are clear. Mucus membranes of the mouth are moist. Neck is supple. Patient has a Mallampati class IV with significant crowding of the posterior oropharynx. RESPIRATORY: Clear to ausculation. No wheezes, rales, or rhonchi. No use of accessory muscles. Patient maintaining oxygen saturation greater than 92% on 2 L nasal cannula. No chest wall tenderness is noted on palpation or with deep breathing. CARDIOVASCULAR: Regular rate and rhythm. S1 and S2 noted. No systolic or diastolic murmur auscultated. No JVD noted. No S3 or S4 noted. GASTROINTESTINAL: No distention noted. Abdomen soft and round. Normal active bowel sounds auscultated x 4 quadrants. No pain or tenderness noted upon palpation. INTEGUMENTARY: No cyanosis. No jaundice. No rashes noted. No cellulitis noted. EXTREMITIES: 2+ peripheral pulses. No evidence of peripheral edema. No calf tenderness noted. Bilateral upper shoulder limitation of range of motion and pain NEUROLOGIC: Cranial nerves II-XII intact. PSYCHIATRIC: Awake, alert, and oriented X 3. Appropriate affect. Intact judgement and insight. - Labs CBC & Chem 7: 04/05/17 08:17 04/05/17 08:17 Labs: Abnormal Lab Results - Last 24 Hours (Table) 04/04/17 04/04/17 04/04/17 Range/Units 05:15 14:54 17:33 WBC 3.3 L (3.8-10.6) k/uL RBC 2.74 L (3.80-5.40) m/uL Hgb 8.5 L (11.4-16.0) gm/dL Hct 25.9 L (34.0-46.0) % Plt Count 115 L (150-450) k/uL Lymphocytes # (1.0-4.8) k/uL Chloride (98-107) mmol/L Creatinine (0.52-1.04) mg/dL POC Glucose (mg/dL) 161 H (75-99) mg/dL Iron 15 L (50-170) ug/dL TIBC 224 L (228-460) ug/dL Iron Saturation 6.70 L (12.00-45.00) Ferritin 639.1 H (10.0-291.0) ng/mL 04/04/17 04/05/17 04/05/17 Range/Units 21:39 07:33 08:17 WBC (3.8-10.6) k/uL RBC 2.70 L (3.80-5.40) m/uL Hgb 8.1 L (11.4-16.0) gm/dL Hct 25.8 L (34.0-46.0) % Plt Count 132 L (150-450) k/uL Lymphocytes # 0.6 L (1.0-4.8) k/uL Chloride (98-107) mmol/L Creatinine (0.52-1.04) mg/dL POC Glucose (mg/dL) 226 H 111 H (75-99) mg/dL Iron (50-170) ug/dL TIBC (228-460) ug/dL Iron Saturation (12.00-45.00) Ferritin (10.0-291.0) ng/mL 04/05/17 04/05/17 Range/Units 08:17 12:03 WBC (3.8-10.6) k/uL RBC (3.80-5.40) m/uL Hgb (11.4-16.0) gm/dL Hct (34.0-46.0) % Plt Count (150-450) k/uL Lymphocytes # (1.0-4.8) k/uL Chloride 111 H (98-107) mmol/L Creatinine 1.08 H (0.52-1.04) mg/dL POC Glucose (mg/dL) 172 H (75-99) mg/dL Iron (50-170) ug/dL TIBC (228-460) ug/dL Iron Saturation (12.00-45.00) Ferritin (10.0-291.0) ng/mL Microbiology - Last 24 Hours (Table) 04/03/17 20:35 Blood Culture - Preliminary Blood No Growth after 24 hours Assessment and Plan Plan: Assessment: 1 acute influenza A infection involving the respiratory tract and the patient has associated systemic illness from influenza syndrome, currently on Tamiflu 2 morbid obesity 3 chronic bronchial asthma 4 obstructive sleep apnea maintained on CPAP therapy 5 fibromyalgia 6 hypertension 7 hyperlipidemia 8 remote history of breast cancer, surgically resected 9 remote history of non-Hodgkin's lymphoma of the bowel, surgically resected subsequent chemotherapy 10 history of recurrent falls with left ankle fracture and left humeral fracture not requiring any surgical intervention 11 acute kidney injury with a creatinine of 1.3, improving and the creatinine is down to 1.1 with a baseline creatinine of 0.8 12 chronic normocytic anemia 13 nonobstructive left renal calculus 14 approximately 2 fibrillation Plan Continue nebulized treatments, continue Tamiflu, continue oral prednisone. Patient denies any dyspnea, no significant chest congestion or sputum production. Any increasing activity as tolerated, physical therapy has been consulted. I performed a history & physical examination of the patient and discussed their management with my nurse practitioner, Ivonne Bowser. I reviewed the nurse practitioner's note and agree with the documented findings and plan of care. Lung sounds are clear. The findings and the impression was discussed with the patient. I attest to the documentation by the nurse practitioner. Time with Patient: Less than 30
--- NOTE | 2017-04-05 14:30 | XR ---
EXAMINATION TYPE: XR shoulder complete LT DATE OF EXAM: 04/05/2017 COMPARISON: 03/01/2017 HISTORY: Pain TECHNIQUE: Three views are submitted. FINDINGS: The osseous structures are intact. There is complete loss of the space of the glenohumeral joint wit h deformity and remodeling of the humeral head. Surgical clips are seen in the axilla. Diffuse osteop enia noted and there is arthropathy of the AC joint. Scapula somewhat truncated in appearance. Could not exclude a degree of subluxation of the humeral head. IMPRESSION: 1. Complete loss of glenohumeral joint space with remodeling of the humeral head. Could not exclude a degree of subluxation. Severe arthritic changes noted. Alternatively given the rapid progression fro m the previous exam of 03/01/2017 and history of previous fracture, posttraumatic osteonecrosis could be in the differential diagnosis. Consider follow-up MRI.
[2017-04-05 17:33] LABS: Glucose,Whole Blood 164 mg/dL (75-99)
[2017-04-05 20:49] LABS: Glucose,Whole Blood 141 mg/dL (75-99)
[2017-04-05] MEDS: ATORVASTATIN 10 MG TAB PO SCH (21:32)
[2017-04-05] MEDS: MULTIVITAMINS, THERA 1 EACH TAB PO SCH (21:33)
[2017-04-05] MEDS: LETROZOLE 2.5 MG TAB PO SCH (21:33)
[2017-04-05] MEDS: LISINOPRIL 20 MG TAB PO SCH (21:33)
[2017-04-05] MEDS: RIVAROXABAN 10 MG TAB PO SCH (21:33)
[2017-04-06] MEDS: IPRATROPIUM-ALBUTEROL 3 ML NEB INHALATION SCH ×4 (07:40→18:50)
[2017-04-06 07:52] LABS: Glucose,Whole Blood 90 mg/dL (75-99)
[2017-04-06] MEDS: INSULIN ASPART 100 UNIT/ML 1 ML 10 ML VIAL SQ SCH ×4 (07:52→22:05)
[2017-04-06] MEDS: FERROUS SULFATE 325 MG TAB PO SCH ×2 (08:49→17:10)
[2017-04-06] MEDS: amLODIPine 5 MG TAB PO SCH ×2 (08:49→21:58)
[2017-04-06] MEDS: cloNIDine HCL 0.1 MG TAB PO SCH ×2 (08:50→21:58)
[2017-04-06] MEDS: FAMOTIDINE 20 MG TAB PO SCH (08:50)
[2017-04-06] MEDS: MELOXICAM 7.5 MG TAB PO SCH (08:50)
[2017-04-06] MEDS: predniSONE 20 MG TAB PO SCH (08:51)
[2017-04-06] MEDS: METOPROLOL TARTRATE 25 MG TAB PO SCH ×2 (08:51→21:58)
[2017-04-06] MEDS: traMADol 50 MG TAB PO SCH ×3 (08:52→22:05)
[2017-04-06] MEDS: SODIUM CHLORIDE 0.9% 1,000 ML IV SCH ×2 (08:52→22:06)
--- NOTE | 2017-04-06 09:05 | P.CNOR ---
History of Present Illness - HPI Consult date: 04/05/17 History of present illness: This is a 66 year old female who is admitted for influenza. Patient has been following with orthopedics for left proximal humerus fracture that occurred on 02/14/2017. Patient complains of bilateral upper extremity pain with any movement. Patient states the pain is mostly in the muscles of bilateral upper extremities. Patient states she has been attending physical therapy as an outpatient and this has helped improve her range of motion. Patient states she also received a cortisone injection in the right shoulder recently but this did not help. Patient denies any new injury or new symptoms. Patient states she has occasional shooting pain down the arms. Patient denies any numbness, weakness, or tingling. Review of Systems See HPI. 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 Past Anesthesia/Blood Transfusion Reactions: Previous Problems w/ Anesthesia, Postoperative Nausea & Vomiting (PONV) Additional Past Anesthesia/Blood Transfusion Reaction / Comm: States she had a cardiac arrest with last intubation 6 yrs. ago-needs fibro optic intubation. Past Psychological History: No Psychological Hx Reported Additional Psychological History / Comment(s): Pt resides alone in an apartment. She has a Cpap machine. She can drive. Smoking Status: Never smoker Past Alcohol Use History: None Reported Past Drug Use History: None Reported - Past Family History Brother(s) Family Medical History: Cancer, Pulmonary Embolus Additional Family Medical History / Comment(s): Non-Hodgin's Lymphoma, Pt. states her brother from a bld. clot. not sure if it was a PE. Sister(s) Family Medical History: Cancer Additional Family Medical History / Comment(s): Non-Hodgkin's Lymphoma Medications and Allergies Home Medications Medication Instructions Recorded Confirmed Type Albuterol Nebulized [Ventolin 2.5 mg INHALATION RT-QID PRN 04/22/15 04/03/17 History Nebulized] Celecoxib [CeleBREX] 200 mg PO DAILY 04/22/15 04/03/17 History Metoprolol Succinate [Toprol XL] 25 mg PO BID 04/22/15 04/03/17 History Multivitamins, Thera [Multivitamin] 1 tab PO HS 04/22/15 04/03/17 History Ranitidine HCl [Zantac] 150 mg PO DAILY 04/22/15 04/03/17 History Rosuvastatin Calcium [Crestor] 5 mg PO HS 04/22/15 04/03/17 History amLODIPine [Norvasc] 5 mg PO BID 04/22/15 04/03/17 History Cholecalciferol (Vitamin D3) 4,000 unit PO HS 02/28/17 04/03/17 History [Vitamin D3] Letrozole 2.5 mg PO HS 02/28/17 04/03/17 History Lisinopril [Prinivil] 40 mg PO HS 02/28/17 04/03/17 History Potassium Chloride ER [K-Dur 20] 20 meq PO HS 02/28/17 04/03/17 History Rivaroxaban [Xarelto] 20 mg PO HS 02/28/17 04/03/17 History traMADol HCl [Ultram] 50 - 100 mg PO Q8H PRN 02/28/17 04/03/17 History cloNIDine HCL [Catapres] 0.1 mg PO BID 04/03/17 04/03/17 History Allergies Allergy/AdvReac Type Severity Reaction Status Date / Time simvastatin [From Zocor] Allergy Unknown Verified 04/03/17 20:09 codeine AdvReac Nausea & Verified 04/03/17 20:09 Vomiting Penicillins AdvReac Nausea & Verified 04/03/17 20:09 Vomiting Physical Examination On exam patient is alert and oriented 3 and in no acute distress. Patient has mild tenderness to palpation to left upper arm. Patient has pain with range of motion of bilateral upper extremities. Range of motion is limited due to pain. Patient has full range of motion of bilateral elbows, wrists and hands. Sensation intact. Neurovascular status intact to bilateral upper extremities. Results X-ray of the left shoulder dated 04/05/2017 shows #1. Complete loss of glenohumeral joint space and remodeling of the humeral head. Could not exclude a degree of subluxation. Severe arthritic changes noted. Alternatively given the rapid progression from the previous exam of 03/01/2017 and history of previous fracture, posttraumatic osteonecrosis could be the differential diagnosis. Consider follow-up MRI. - Labs Labs: Abnormal Lab Results - Last 24 Hours (Table) 04/04/17 04/04/17 04/04/17 Range/Units 05:15 17:33 21:39 RBC (3.80-5.40) m/uL Hgb (11.4-16.0) gm/dL Hct (34.0-46.0) % Plt Count (150-450) k/uL Lymphocytes # (1.0-4.8) k/uL Chloride (98-107) mmol/L Creatinine (0.52-1.04) mg/dL POC Glucose (mg/dL) 161 H 226 H (75-99) mg/dL Iron 15 L (50-170) ug/dL TIBC 224 L (228-460) ug/dL Iron Saturation 6.70 L (12.00-45.00) Transferrin 145.0 L (204.0-354.0) mg/dL Ferritin 639.1 H (10.0-291.0) ng/mL 04/05/17 04/05/17 04/05/17 Range/Units 07:33 08:17 08:17 RBC 2.70 L (3.80-5.40) m/uL Hgb 8.1 L (11.4-16.0) gm/dL Hct 25.8 L (34.0-46.0) % Plt Count 132 L (150-450) k/uL Lymphocytes # 0.6 L (1.0-4.8) k/uL Chloride 111 H (98-107) mmol/L Creatinine 1.08 H (0.52-1.04) mg/dL POC Glucose (mg/dL) 111 H (75-99) mg/dL Iron (50-170) ug/dL TIBC (228-460) ug/dL Iron Saturation (12.00-45.00) Transferrin (204.0-354.0) mg/dL Ferritin (10.0-291.0) ng/mL 04/05/17 Range/Units 12:03 RBC (3.80-5.40) m/uL Hgb (11.4-16.0) gm/dL Hct (34.0-46.0) % Plt Count (150-450) k/uL Lymphocytes # (1.0-4.8) k/uL Chloride (98-107) mmol/L Creatinine (0.52-1.04) mg/dL POC Glucose (mg/dL) 172 H (75-99) mg/dL Iron (50-170) ug/dL TIBC (228-460) ug/dL Iron Saturation (12.00-45.00) Transferrin (204.0-354.0) mg/dL Ferritin (10.0-291.0) ng/mL Microbiology - Last 24 Hours (Table) 04/03/17 20:35 Blood Culture - Preliminary Blood No Growth after 24 hours H & H 04/03/17 04/04/17 04/04/17 Range/Units 20:35 05:15 14:54 Hgb 9.0 L D 8.2 L 8.5 L (11.4-16.0) gm/dL Hct 26.8 L 26.0 L 25.9 L (34.0-46.0) % 04/05/17 Range/Units 08:17 Hgb 8.1 L (11.4-16.0) gm/dL Hct 25.8 L (34.0-46.0) % Coagulation 04/03/17 Range/Units 20:35 INR 1.2 H (<1.2) Result Diagrams: 04/05/17 08:17 04/05/17 08:17 Assessment and Plan (1) Pain in both upper extremities Current Visit: Yes Status: Acute Code(s): M79.601 - PAIN IN RIGHT ARM; M79.602 - PAIN IN LEFT ARM SNOMED Code(s): 497911608 Plan: #1. Continue pain control. #2. Further recommendations to come regarding x-ray results of left shoulder. #3. Will continue to follow the patient closely.
[2017-04-06] MEDS: OSELTAMIVIR 60 MG/10 ML ORAL SYRINGE PO SCH ×2 (09:27→22:05)
[2017-04-06 10:27] LABS: Basophils % (A) 0 %; Eosinophils % (A) 0 %; HCT 26.8 % (34.0-46.0); HGB 8.3 gm/dL (11.4-16.0); Hypochromasia Moderate; Lymphocytes # (A) 0.7 k/uL (1.0-4.8); Lymphocytes % (A) 14 %; MCH 30.4 pg (25.0-35.0); MCHC 30.9 g/dL (31.0-37.0); MCV 98.5 fL (80.0-100.0); Macrocytosis Slight; Mean Platelet Volume 8.4; Monocytes # (A) 0.3 k/uL (0-1.0); Monocytes % (A) 6 %; Neutrophils # (A) 3.6 k/uL (1.3-7.7); Neutrophils % (A) 78 %; Platelet Count 161 k/uL (150-450); Poikilocytosis Slight; RBC 2.72 m/uL (3.80-5.40); RDW 15.6 % (11.5-15.5); WBC 4.6 k/uL (3.8-10.6)
[2017-04-06 10:35] LABS: Calcium 9.2 mg/dL (8.4-10.2); Potassium 3.7 mmol/L (3.5-5.1)
[2017-04-06] MEDS ORDERED: HYDROmorphone 2 MG/ML 1 ML SYRINGE IVP PRN (11:49)
--- NOTE | 2017-04-06 11:51 | P.PN ---
Subjective Progress Note Date: 04/06/17 66-year-old female who presented to the emergency room on 04/03/2017 with a chief complaint of fever, fatigue, and malaise. The patient states she was has been sleeping for extended periods of time, up to 24 hours at a time last week, which she attributes to a new medication she was started on. She states that over the past four or five days she has had no energy, generalized body aches, fever, and chills. She states that she started coughing on last Tuesday or Tuesday. She states that she tried to drink fluids and continue to eat over the past few days but states that she did have a decrease in her oral intake. She denies chest pain or pressure. Denies nausea or vomiting. Denies abdominal pain. The patient has a history of COPD, fibromyalgia, gastroesophageal reflux disease , deep vein thrombosis, hyperlipidemia, hypertension, osteoarthritis. She fell a few months ago and broke her left ankle and also her humerus. She did not require surgical intervention. She has a nebulizer machine at home but she states that she does not use it often. She does have a history of sleep apnea and uses a CPAP machine nightly. Patient states she had a cardiac arrest approximately 6 years ago and developed atrial fibrillation afterwards. She states that she has not had any further episodes of A. fib to her knowledge. She was diagnosed with a TIA in the winter of 2015 after experiencing left- sided numbness. She takes Xarelto daily for anticoagulation. In the emergency room, a chest x-ray was completed which was negative for an acute abscess. There was numerous nodule appearing opacities bilaterally which metastasis could not be excluded. CT was completed revealing sinus mechanism. Laboratory studies revealed white count of 3.2, platelet count 123, INR 1.2, sodium 137, potassium 5.1, BUN 24, creatinine 1.30, troponin negative 1, BNP 272. Hemoglobin was 9.0. Previous hemoglobin obtained at the end of February 2017 was 12.4. Testing for influenza A was positive. Negative influenza B. 04/05/2017 Patient seen and examined at the bedside on rounds with Dr. Schmid. Patient underwent CT of the chest on 04/04/2017 which revealed that nodularity seen on chest xray was overestimated and likely related to prominent vessels. It did show a 5mm right-sided and 4mm lingular pulmonary nodule. One year follow up exam was recommended. Patient states she feels very weak. Patient continues to have nonproductive cough. She is on room air with oxygen saturations greater than 92%. She complains of severe pain in her bilateral upper extremities. Patient did recently fracture left humerus and was evaluated by orthopedics during previous admission. She states she had a scheduled follow up appointment yesterday. The patient also has a history of polymyalgia rheumatica and was recently treated with IV steroids. Patient states she worked with physical therapy yesterday. She is considering ECF at the time of discharge if she does not feel strong enough to go home. 04/06/2017 Patient seen and examined at the bedside on rounds with Dr. Schmid. Patients respiratory status has improved. She continues to have a nonproductive cough. Denies shortness of breath. Maintaining oxygen saturations greater than 92% on 2L NC. Patient continues to complain of severe pain to bilateral upper extremities. Patient underwent x-ray of left shoulder on 04/05/2017 which revealed complete loss of glenohumeral joint space with remodeling of the humeral head, unable to exclude a degree of subluxation, severe arthritic changes noted, and due to rapid progession when compared with xray in February 2017 and history of left humerus fracture, posttraumatic osteonecrosis could not be excluded. ESR was ordered yesterday and was 77. Patient has a history of polymyalgia rheumatica with a previous sed rate in the 40s on lab work completed on an outpatient basis. The patient has a history of non-Hodgkin's lymphoma and breast cancer and there is a concern for malignancy at this time secondary to xray report and patients persistent severe pain. The patient has seen Dr. Rivera in the past. Patient remains hemodynamically stable. She is afebrile. Hemoglobin is 8.3. Objective - Vital Signs Vital signs: Vital Signs Temp 98.0 F 04/06/17 07:00 Pulse 76 04/06/17 11:32 Resp 18 04/06/17 07:00 BP 137/69 04/06/17 07:00 Pulse Ox 96 04/06/17 07:43 Intake & Output 04/05/17 04/06/17 04/06/17 18:59 06:59 18:59 Intake Total 240 Balance 240 Weight 93 kg Intake: Oral 240 Other: Voiding Method Bedside Commode Bedside Commode # Voids 2 2 - Exam GENERAL: This is a 66-year-old female in no apparent distress at the time of examination. Pleasant and cooperative. HEENT: Head is atraumatic, normocephalic. Pupils are equal, round, and reactive to light. Sclerae anicteric. Conjunctivae are clear. Mucus membranes of the mouth are moist. Neck is supple. RESPIRATORY: Clear to ausculation. No wheezes, rales, or rhonchi. No use of accessory muscles. Patient maintaining oxygen saturation greater than 92%. No chest wall tenderness is noted on palpation or with deep breathing. CARDIOVASCULAR: Regular rate and rhythm. S1 and S2 noted. No systolic or diastolic murmur auscultated. No JVD noted. No S3 or S4 noted. GASTROINTESTINAL: No distention noted. Abdomen soft and round. Normal active bowel sounds auscultated x 4 quadrants. No pain or tenderness noted upon palpation. INTEGUMENTARY: No cyanosis. No jaundice. No rashes noted. No cellulitis noted. EXTREMITIES: Decreased range of motion and severe pain of bilateral upper extremities. 2+ peripheral pulses. No evidence of peripheral edema. No calf tenderness noted. NEUROLOGIC: Cranial nerves II-XII intact. PSYCHIATRIC: Awake, alert, and oriented X 3. Slightly anxious. Appropriate affect. Intact judgement and insight. - Labs CBC & Chem 7: 04/06/17 09:55 04/06/17 09:55 Labs: Abnormal Lab Results - Last 24 Hours (Table) 04/04/17 04/05/17 04/05/17 Range/Units 05:15 11:30 12:03 RBC (3.80-5.40) m/uL Hgb (11.4-16.0) gm/dL Hct (34.0-46.0) % MCHC (31.0-37.0) g/dL RDW (11.5-15.5) % Lymphocytes # (1.0-4.8) k/uL ESR 77 H (0-20) mm/hr Chloride (98-107) mmol/L Carbon Dioxide (22-30) mmol/L Creatinine (0.52-1.04) mg/dL Glucose (74-99) mg/dL POC Glucose (mg/dL) 172 H (75-99) mg/dL Transferrin 145.0 L (204.0-354.0) mg/dL 04/05/17 04/05/17 04/06/17 Range/Units 17:30 20:47 09:55 RBC 2.72 L (3.80-5.40) m/uL Hgb 8.3 L (11.4-16.0) gm/dL Hct 26.8 L (34.0-46.0) % MCHC 30.9 L (31.0-37.0) g/dL RDW 15.6 H (11.5-15.5) % Lymphocytes # 0.7 L (1.0-4.8) k/uL ESR (0-20) mm/hr Chloride (98-107) mmol/L Carbon Dioxide (22-30) mmol/L Creatinine (0.52-1.04) mg/dL Glucose (74-99) mg/dL POC Glucose (mg/dL) 164 H 141 H (75-99) mg/dL Transferrin (204.0-354.0) mg/dL 04/06/17 Range/Units 09:55 RBC (3.80-5.40) m/uL Hgb (11.4-16.0) gm/dL Hct (34.0-46.0) % MCHC (31.0-37.0) g/dL RDW (11.5-15.5) % Lymphocytes # (1.0-4.8) k/uL ESR (0-20) mm/hr Chloride 111 H (98-107) mmol/L Carbon Dioxide 21 L (22-30) mmol/L Creatinine 1.13 H (0.52-1.04) mg/dL Glucose 126 H (74-99) mg/dL POC Glucose (mg/dL) (75-99) mg/dL Transferrin (204.0-354.0) mg/dL Microbiology - Last 24 Hours (Table) 04/03/17 20:35 Blood Culture - Preliminary Blood No Growth after 48 hours Assessment and Plan Plan: ASSESSMENT: Generalized malaise, fever, and cough secondary to acute influenza A Normocytic, normochromic anemia, likely mixed anemia of chronic disease with aspect of iron deficiency Acute kidney injury, creatinine 1.3 on admission, baseline 0.80, secondary to decreased oral intake Dehydration secondary to decreased oral intake Mild hyperkalemia, secondary to potassium supplement and BRADLEY, resolved Hyperglycemia, secondary to steroid administration Recent fall with subsequent left ankle fracture and left humerus fracture, not requiring surgical intervention Severe pain to bilateral upper extremities, may be secondary to recent left humerus fracture and/or polymyalgia rheumatica, underlying malignancy can not be excluded History of atrial fibrillation, maintained on long-term anticoagulation with Xarelto History of transient ischemic attack History of deep pain thrombosis History of breast cancer History of non-hodgkins lymphoma Essential hypertension Hyperlipidemia Fibromyalgia Obstructive sleep apnea, patient is compliant with CPAP machine Gastroesophageal reflux disease Obesity: BMI 37.5 PLAN: -Pulmonology on consult. Appreciate recommendations and input -Orthopedics on consult. Appreciate recommendations and input -Decrease steroids to [address] Schmid -Consult oncology and rheumatology per Dr. Schmid -Restart patient's home dose of potassium supplement -Continue Ultram. Will begin Dilaudid 1 mg every 4 hours PRN for breakthrough pain -Capillary blood glucose accu-checks AC/HS secondary to hyperglycemia -NovoLog sliding scale insulin coverage AC/HS secondary to hyperglycemia -Home meds as appropriate -Monitor labs -GI prophylaxis: Pepcid 20 mg by mouth daily -DVT prophylaxis: Xarelto 20 mg PO daily -Monitor vital signs and address as appropriate -Discharge planning: Physical therapy recommending subacute rehab at the time of discharge -Further recommendations pending patient's course Nurse practitioner note has been reviewed by physician. Signing provider agrees with the documented findings, assessment, and plan of care.
[2017-04-06 12:34] LABS: Glucose,Whole Blood 112 mg/dL (75-99)
--- NOTE | 2017-04-06 15:20 | P.PN ---
<Ivonne Bowser M - Last Filed: 04/06/17 15:14> Subjective Progress Note Date: 04/06/17 Principal diagnosis: Acute influenza A infection A very pleasant 66-year-old female patient, morbidly obese, known history of COPD, and history of obstructive sleep apnea and she uses a CPAP machine on outpatient basis, started getting sick over the past several days. The patient presented to the ED with generalized weakness, diffuse body aches, some chills and fever and she also reported some limited cough. No chest pain. No pleurisy. She was very weak and at one point she was noted to have some altered mentation without any headache or any neck stiffness. Ultimately her mental status normalized and she was brought into the hospital where she was found to have positive influenza A negative influenza B and she was started on IV fluids and Tamiflu. Note that the patient had a fall approximately a month and a half ago with fracture in her right ankle and subsequently she had another fall resulting into a humeral injury. All these orthopedic complications were treated appropriately. She is resting comfortably in bed. Her chest x-ray showed no acute abnormalities. CAT scan of the chest was also done and it showed no acute abnormalities. There was a 4 mm lingular nodule that warrants no further investigation. The ascending aorta was ectatic measuring 2.9 cm in size. Postsurgical changes were seen in the left breast. There is also a left renal calculus measuring 2 mm in size. Blood work shows no significant leukocytosis. The patient is a chronic anemia. Creatinine is 1.1 and the patient is producing adequate amount of urine output. Troponin is negative. BNP level was nonelevated. On 04/05/2017 patient seen in follow-up. Denies any r, she has been up ambulating in the hallway, tolerating it well. Lung sounds are clear, diminished, no rhonchi no wheezes noted. No significant sputum production or chest congestion. On room air with O2 sat at 94%. No febrile episodes in the last 24 hours. Today's lab work shows the WBC within normal limits at 4.3, hemoglobin is 8.1, B1 of 15, and creatinine of 1.08. She has refused receiving Tamiflu, oral prednisone and nebulized treatments. Her biggest concern today is her ongoing bilateral shoulder motion limitation and pain. Orthopedic consult ordered in regards to that. Physical therapy has recommended subacute rehab placement at the time of discharge. On 04/06/2017 patient seen in follow-up on medical surgical floor. Denies any respiratory difficulty, lung sounds are clear, diminished at the bases, no rhonchi or wheezing noted. Currently on room air, with O2 sat at 92%. Vital signs are stable, afebrile. Blood cultures are negative at the 48 hour sahara. She continues with bilateral shoulder motion limitation, orthopedic consultation was noted. Objective - Vital Signs Vital signs: Vital Signs Temp 98.0 F 04/06/17 07:00 Pulse 80 04/06/17 11:38 Resp 18 04/06/17 07:00 BP 137/69 04/06/17 07:00 Pulse Ox 96 04/06/17 07:43 Intake & Output 04/05/17 04/06/17 04/06/17 18:59 06:59 18:59 Intake Total 240 Balance 240 Weight 93 kg Intake: Oral 240 Other: Voiding Method Bedside Commode Bedside Commode # Voids 2 2 2 # Bowel Movements 1 - Exam GENERAL: This is a 66-year-old female in no apparent distress at the time of examination. Pleasant and cooperative. HEENT: Head is atraumatic, normocephalic. Pupils are equal, round, and reactive to light. Sclerae anicteric. Conjunctivae are clear. Mucus membranes of the mouth are moist. Neck is supple. Patient has a Mallampati class IV with significant crowding of the posterior oropharynx. RESPIRATORY: Clear to ausculation. No wheezes, rales, or rhonchi. No use of accessory muscles. Patient maintaining oxygen saturation greater than 92% on 2 L nasal cannula. No chest wall tenderness is noted on palpation or with deep breathing. CARDIOVASCULAR: Regular rate and rhythm. S1 and S2 noted. No systolic or diastolic murmur auscultated. No JVD noted. No S3 or S4 noted. GASTROINTESTINAL: No distention noted. Abdomen soft and round. Normal active bowel sounds auscultated x 4 quadrants. No pain or tenderness noted upon palpation. INTEGUMENTARY: No cyanosis. No jaundice. No rashes noted. No cellulitis noted. EXTREMITIES: 2+ peripheral pulses. No evidence of peripheral edema. No calf tenderness noted. Bilateral upper shoulder limitation of range of motion and pain NEUROLOGIC: Cranial nerves II-XII intact. PSYCHIATRIC: Awake, alert, and oriented X 3. Appropriate affect. Intact judgement and insight. - Labs CBC & Chem 7: 04/06/17 09:55 04/06/17 09:55 Labs: Abnormal Lab Results - Last 24 Hours (Table) 04/05/17 04/05/17 04/05/17 Range/Units 11:30 17:30 20:47 RBC (3.80-5.40) m/uL Hgb (11.4-16.0) gm/dL Hct (34.0-46.0) % MCHC (31.0-37.0) g/dL RDW (11.5-15.5) % Lymphocytes # (1.0-4.8) k/uL ESR 77 H (0-20) mm/hr Chloride (98-107) mmol/L Carbon Dioxide (22-30) mmol/L Creatinine (0.52-1.04) mg/dL Glucose (74-99) mg/dL POC Glucose (mg/dL) 164 H 141 H (75-99) mg/dL 04/06/17 04/06/17 04/06/17 Range/Units 09:55 09:55 12:29 RBC 2.72 L (3.80-5.40) m/uL Hgb 8.3 L (11.4-16.0) gm/dL Hct 26.8 L (34.0-46.0) % MCHC 30.9 L (31.0-37.0) g/dL RDW 15.6 H (11.5-15.5) % Lymphocytes # 0.7 L (1.0-4.8) k/uL ESR (0-20) mm/hr Chloride 111 H (98-107) mmol/L Carbon Dioxide 21 L (22-30) mmol/L Creatinine 1.13 H (0.52-1.04) mg/dL Glucose 126 H (74-99) mg/dL POC Glucose (mg/dL) 112 H (75-99) mg/dL Microbiology - Last 24 Hours (Table) 04/03/17 20:35 Blood Culture - Preliminary Blood No Growth after 48 hours Assessment and Plan Plan: Assessment: 1 acute influenza A infection involving the respiratory tract and the patient has associated systemic illness from influenza syndrome, currently on Tamiflu 2 morbid obesity 3 chronic bronchial asthma 4 obstructive sleep apnea maintained on CPAP therapy 5 fibromyalgia 6 hypertension 7 hyperlipidemia 8 remote history of breast cancer, surgically resected 9 remote history of non-Hodgkin's lymphoma of the bowel, surgically resected subsequent chemotherapy 10 history of recurrent falls with left ankle fracture and left humeral fracture not requiring any surgical intervention 11 acute kidney injury with a creatinine of 1.3, improving and the creatinine is down to 1.1 with a baseline creatinine of 0.8 12 chronic normocytic anemia 13 nonobstructive left renal calculus 14 Paroxysmal atrial fibrillation 15 pain in both upper extremities, orthopedic service is following Plan From pulmonary standpoint patient remains stable, continue nebulized treatments , finish 5 day of Tamiflu, continue oral prednisone. Patient denies any dyspnea , no significant chest congestion or sputum production. Increase activity as tolerated. Patient is stable for discharge to the rehab facility from pulmonary standpoint, continue to follow with you on as-needed basis. I performed a history & physical examination of the patient and discussed their management with my nurse practitioner, Ivonne Bowser. I reviewed the nurse practitioner's note and agree with the documented findings and plan of care. Lung sounds are clear. The findings and the impression was discussed with the patient. I attest to the documentation by the nurse practitioner. Time with Patient: Less than 30 <Abdulkadir Navarro - Last Filed: 04/06/17 18:24> Objective - Vital Signs Vital signs: Vital Signs Temp 97.9 F 04/06/17 15:00 Pulse 84 04/06/17 15:53 Resp 16 04/06/17 15:00 BP 164/80 04/06/17 15:00 Pulse Ox 99 04/06/17 15:00 Intake & Output 04/05/17 04/06/17 04/06/17 18:59 06:59 18:59 Intake Total 240 Balance 240 Weight 93 kg Intake: Oral 240 Other: Voiding Method Bedside Commode Bedside Commode # Voids 2 2 1 # Bowel Movements 1 - Labs CBC & Chem 7: 04/06/17 09:55 04/06/17 09:55 Labs: Abnormal Lab Results - Last 24 Hours (Table) 04/05/17 04/06/17 04/06/17 Range/Units 20:47 09:55 09:55 RBC 2.72 L (3.80-5.40) m/uL Hgb 8.3 L (11.4-16.0) gm/dL Hct 26.8 L (34.0-46.0) % MCHC 30.9 L (31.0-37.0) g/dL RDW 15.6 H (11.5-15.5) % Lymphocytes # 0.7 L (1.0-4.8) k/uL Chloride 111 H (98-107) mmol/L Carbon Dioxide 21 L (22-30) mmol/L Creatinine 1.13 H (0.52-1.04) mg/dL Glucose 126 H (74-99) mg/dL POC Glucose (mg/dL) 141 H (75-99) mg/dL 04/06/17 04/06/17 Range/Units 12:29 17:37 RBC (3.80-5.40) m/uL Hgb (11.4-16.0) gm/dL Hct (34.0-46.0) % MCHC (31.0-37.0) g/dL RDW (11.5-15.5) % Lymphocytes # (1.0-4.8) k/uL Chloride (98-107) mmol/L Carbon Dioxide (22-30) mmol/L Creatinine (0.52-1.04) mg/dL Glucose (74-99) mg/dL POC Glucose (mg/dL) 112 H 146 H (75-99) mg/dL Microbiology - Last 24 Hours (Table) 04/03/17 20:35 Blood Culture - Preliminary Blood No Growth after 48 hours Assessment and Plan Plan: This is a joint evaluation. I tested above-mentioned formation. Lungs are clear. The patient is being treated for influenza A rest or checked infection.
--- NOTE | 2017-04-06 16:36 | P.PN ---
Subjective Progress Note Date: 04/06/17 Principal diagnosis: Healing Left Proximal humerus fracture. Right shoulder pain. Influenza This is a 66-year-old female who we are following regarding her bilateral shoulder pain. She has a healing left proximal humerus fracture. She has been seen in our office with rotator cuff tendinitis of the right shoulder with possible biceps tendinitis. She had a cortisone injection to the right shoulder about 6 weeks ago. She is currently in physical therapy. She is admitted with a viral illness and we're consulted for orthopedic evaluation and follow up regarding her shoulder pain. Objective - Vital Signs Vital signs: Vital Signs Temp 98.0 F 04/06/17 07:00 Pulse 84 04/06/17 07:53 Resp 18 04/06/17 07:00 BP 137/69 04/06/17 07:00 Pulse Ox 96 04/06/17 07:43 Intake & Output 04/05/17 04/06/17 04/06/17 18:59 06:59 18:59 Intake Total 240 Balance 240 Weight 93 kg Intake: Oral 240 Other: Voiding Method Bedside Commode Bedside Commode # Voids 2 2 - Exam This is a 66-year-old female in no acute distress. She is alert and oriented 3. Examining the left shoulder reveals improved range of motion with minimal pain. She has forward flexion to about 150 actively with abduction to about 140. She has full elbow, wrist and finger motion without difficulty or pain. Neurovascular status the left upper extremity is intact. Exam of the right upper extremity reveals limited forward flexion and abduction secondary to pain. She is able to actively forward flex to about 140 with a painful catch at about 120. She has full elbow, wrist and finger motion without difficulty. Neurovascular status of the right upper extremity is intact. - Labs CBC & Chem 7: 04/06/17 09:55 04/06/17 09:55 Labs: Abnormal Lab Results - Last 24 Hours (Table) 04/04/17 04/05/17 04/05/17 Range/Units 05:15 08:17 08:17 RBC 2.70 L (3.80-5.40) m/uL Hgb 8.1 L (11.4-16.0) gm/dL Hct 25.8 L (34.0-46.0) % Plt Count 132 L (150-450) k/uL Lymphocytes # 0.6 L (1.0-4.8) k/uL ESR (0-20) mm/hr Chloride 111 H (98-107) mmol/L Creatinine 1.08 H (0.52-1.04) mg/dL POC Glucose (mg/dL) (75-99) mg/dL Transferrin 145.0 L (204.0-354.0) mg/dL 04/05/17 04/05/17 04/05/17 Range/Units 11:30 12:03 17:30 RBC (3.80-5.40) m/uL Hgb (11.4-16.0) gm/dL Hct (34.0-46.0) % Plt Count (150-450) k/uL Lymphocytes # (1.0-4.8) k/uL ESR 77 H (0-20) mm/hr Chloride (98-107) mmol/L Creatinine (0.52-1.04) mg/dL POC Glucose (mg/dL) 172 H 164 H (75-99) mg/dL Transferrin (204.0-354.0) mg/dL 04/05/17 Range/Units 20:47 RBC (3.80-5.40) m/uL Hgb (11.4-16.0) gm/dL Hct (34.0-46.0) % Plt Count (150-450) k/uL Lymphocytes # (1.0-4.8) k/uL ESR (0-20) mm/hr Chloride (98-107) mmol/L Creatinine (0.52-1.04) mg/dL POC Glucose (mg/dL) 141 H (75-99) mg/dL Transferrin (204.0-354.0) mg/dL Microbiology - Last 24 Hours (Table) 04/03/17 20:35 Blood Culture - Preliminary Blood No Growth after 48 hours Assessment and Plan (1) Influenza Current Visit: Yes Status: Acute Code(s): J11.1 - FLU DUE TO UNIDENTIFIED INFLUENZA VIRUS W OTH RESP MANIFEST SNOMED Code(s): 9479392 (2) Pain in both upper extremities Current Visit: Yes Status: Acute Code(s): M79.601 - PAIN IN RIGHT ARM; M79.602 - PAIN IN LEFT ARM SNOMED Code(s): 502824494 (3) Cervical radiculopathy Current Visit: No Status: Acute Priority: Medium Code(s): M54.12 - RADICULOPATHY, CERVICAL REGION SNOMED Code(s): 79237678 Plan: The clinical findings are discussed with the patient. X-rays of the left proximal humerus shows a healing proximal humerus fracture with some flattening of the glenohumeral surface and inferior subluxation. It is recommended that she continue physical therapy for both shoulders and her cervical spine. She is to follow up with Dr. Zhong as an outpatient to discuss further treatment options of the right shoulder when her medical illnesses resolved. MRI of the right shoulder may be an option.
--- NOTE | 2017-04-06 17:13 | P.CONS ---
History of Present Illness - Reason for Consult Consult date: 04/06/17 rapidly progressing arthritis Requesting physician: Camilla Turner - Chief Complaint pain in neck and shoulders - History of Present Illness Patient is here today with a past medical history of atrial fibrillation, hypertension, obstructive sleep apnea, breast cancer, history of humeral fracture, cervical radiculopathy, osteoarthritis of shoulder, presented to the emergency room on April 03 with complaints of fever fatigue and generally feeling unwell with a cough. Patient stated that she has been drowsier in the past week since starting gabapentin which was prescribed by us for cervical radiculopathy. Patient was prescribed gabapentin 300 mg daily at bedtime and found that she slept late into the next day, patient did call our office about this and we prescribed gabapentin 100 mg per patient to take and build up to 300 mg slowly, however patient states after 2 days to gabapentin 100 mg she felt the same increase drowsiness and did sleep in until very late. Patient states that week she went to dinner with her children and see that she had no appetite and she's been feeling very cold with a fever and at that time she was and then she was. Patient was previously seen as an inpatient consult by us for possible polymyalgia rheumatica which was ruled out as patient does have at that time had a humeral fracture as well as degenerative disc disease of the cervical spine which was causing cervical radiculopathy for which we prescribed the gabapentin. At this time it does not seem that patient is in much pain as she is currently on Ultram however she still complains of stiffness in the neck and tenderness of the trapezius. Patient did have 8 sessions of physical therapy for her shoulders which may also exacerbated her pain as well as general myalgia from influenza. Patient was seen [facility] in the last few weeks and was given a cortisone injection in the right shoulder. In the emergency room and chest x-ray was completed was performed which showed numerous nodules opacities and test for influenza A was positive CT of the chest show nodularities similar to will see on chest x-ray measuring 5 mm right- sided and 4 mm lingual pulmonary nodules, pulmonology has been consulted and has cleared patient for discharge. Patient does have does have breast cancer and history of non-Hodgkin's lymphoma and is currently being followed by Dr. Rivera. ESR was ordered on April 05 which was 77 which is elevated but is most likely related to patient's influenza. Patient did also present with BRADLEY but is resolving, creatinine improved from 1.3 to 1.1. On physical exam there is no tristin evidence of synovitis. Patient continues to have pain in the neck and upper extremities due to cervical radiculopathy, arthritis in the shoulder as seen on x-ray and fracture of left humerus. At this time as patient's pain is still due mostly to cervical radiculopathy as she has known degenerative arthritis and changes in the spine and shoulders. Patient is very sensitive to medications so that will be taken into consideration and patient may also be referred for interventional pain management when she is seen at our office as an outpatient. Patient will see us as an outpatient after she is discharged from here for further plan of care regarding her cervical radiculopathy. Review of Systems Musculoskeletal: Reports myalgias, Reports neck pain, Reports shooting arm pain Past Medical History Past Medical History: Atrial Fibrillation, Asthma, Cancer, Deep Vein Thrombosis (DVT), Fibromyalgia, GERD/Reflux, Hyperlipidemia, Hypertension, Osteoarthritis ( OA), Pneumonia, Sleep Apnea/CPAP/BIPAP Additional Past Medical History / Comment(s): Morbid obesity, bronchial asthma, paroxysmal atrial fibrillation, obstructive sleep apnea, degenerative arthritis , history of fall and ankle fracture, left-sided breast cancer with previous lumpectomy radiation therapy, history of non-Hodgkin's lymphoma 20 years ago requiring a bowel resection followed by systemic chemotherapy, osteoarthritis, hyperlipidemia, hypertension, fibromyalgia, acid reflux, remote history of DVT History of Any Multi-Drug Resistant Organisms: None Reported Past Surgical History: Adenoidectomy, Appendectomy, Bowel Resection, Breast Surgery, Cholecystectomy, Hysterectomy, Joint Replacement, Orthopedic Surgery, Tonsillectomy, Tubal Ligation Additional Past Surgical History / Comment(s): L breast core bx, L breast lumpectomy/sentinel node bx, I&D abscess in abdomin after hysterectomy, total R knee arthroplasty, bowel resection for cancer, NAE, colonoscopies. Past Anesthesia/Blood Transfusion Reactions: Previous Problems w/ Anesthesia, Postoperative Nausea & Vomiting (PONV) Additional Past Anesthesia/Blood Transfusion Reaction / Comm: States she had a cardiac arrest with last intubation 6 yrs. ago-needs fibro optic intubation. Past Psychological History: No Psychological Hx Reported Additional Psychological History / Comment(s): Pt resides alone in an apartment. She has a Cpap machine. She can drive. Smoking Status: Never smoker Past Alcohol Use History: None Reported Past Drug Use History: None Reported - Past Family History Brother(s) Family Medical History: Cancer, Pulmonary Embolus Additional Family Medical History / Comment(s): Non-Hodgin's Lymphoma, Pt. states her brother from a bld. clot. not sure if it was a PE. Sister(s) Family Medical History: Cancer Additional Family Medical History / Comment(s): Non-Hodgkin's Lymphoma Medications and Allergies Home Medications Medication Instructions Recorded Confirmed Type Albuterol Nebulized [Ventolin 2.5 mg INHALATION RT-QID PRN 04/22/15 04/03/17 History Nebulized] Celecoxib [CeleBREX] 200 mg PO DAILY 04/22/15 04/03/17 History Metoprolol Succinate [Toprol XL] 25 mg PO BID 04/22/15 04/03/17 History Multivitamins, Thera [Multivitamin] 1 tab PO HS 04/22/15 04/03/17 History Ranitidine HCl [Zantac] 150 mg PO DAILY 04/22/15 04/03/17 History Rosuvastatin Calcium [Crestor] 5 mg PO HS 04/22/15 04/03/17 History amLODIPine [Norvasc] 5 mg PO BID 04/22/15 04/03/17 History Cholecalciferol (Vitamin D3) 4,000 unit PO HS 02/28/17 04/03/17 History [Vitamin D3] Letrozole 2.5 mg PO HS 02/28/17 04/03/17 History Lisinopril [Prinivil] 40 mg PO HS 02/28/17 04/03/17 History Potassium Chloride ER [K-Dur 20] 20 meq PO HS 02/28/17 04/03/17 History Rivaroxaban [Xarelto] 20 mg PO HS 02/28/17 04/03/17 History traMADol HCl [Ultram] 50 - 100 mg PO Q8H PRN 02/28/17 04/03/17 History cloNIDine HCL [Catapres] 0.1 mg PO BID 04/03/17 04/03/17 History Allergies Allergy/AdvReac Type Severity Reaction Status Date / Time simvastatin [From Zocor] Allergy Unknown Verified 04/03/17 20:09 codeine AdvReac Nausea & Verified 04/03/17 20:09 Vomiting Penicillins AdvReac Nausea & Verified 04/03/17 20:09 Vomiting Physical Exam Vitals: Vital Signs Temp Pulse Pulse Resp BP Pulse Ox 04/06/17 15:53 84 04/06/17 15:43 88 04/06/17 15:00 97.9 F 88 16 164/80 99 04/06/17 11:38 80 04/06/17 11:32 76 04/06/17 07:53 84 04/06/17 07:43 80 96 04/06/17 07:00 98.0 F 76 18 137/69 92 L 04/05/17 23:00 97.2 F L 82 16 142/68 96 04/05/17 19:26 88 04/05/17 19:12 88 Intake and Output 04/06/17 04/06/17 04/06/17 06:59 14:59 22:59 Other: # Voids 2 2 1 # Bowel Movements 1 1 On physical exam there is no tristin evidence of synovitis. Patient continues to have pain in the neck and upper extremities due to cervical radiculopathy, arthritis in the shoulder as seen on x-ray and fracture of left humerus. Results CBC & Chem 7: 04/06/17 09:55 04/06/17 09:55 Labs: Abnormal Lab Results - Last 24 Hours (Table) 04/05/17 04/05/17 04/06/17 Range/Units 17:30 20:47 09:55 RBC 2.72 L (3.80-5.40) m/uL Hgb 8.3 L (11.4-16.0) gm/dL Hct 26.8 L (34.0-46.0) % MCHC 30.9 L (31.0-37.0) g/dL RDW 15.6 H (11.5-15.5) % Lymphocytes # 0.7 L (1.0-4.8) k/uL Chloride (98-107) mmol/L Carbon Dioxide (22-30) mmol/L Creatinine (0.52-1.04) mg/dL Glucose (74-99) mg/dL POC Glucose (mg/dL) 164 H 141 H (75-99) mg/dL 04/06/17 04/06/17 Range/Units 09:55 12:29 RBC (3.80-5.40) m/uL Hgb (11.4-16.0) gm/dL Hct (34.0-46.0) % MCHC (31.0-37.0) g/dL RDW (11.5-15.5) % Lymphocytes # (1.0-4.8) k/uL Chloride 111 H (98-107) mmol/L Carbon Dioxide 21 L (22-30) mmol/L Creatinine 1.13 H (0.52-1.04) mg/dL Glucose 126 H (74-99) mg/dL POC Glucose (mg/dL) 112 H (75-99) mg/dL Microbiology - Last 24 Hours (Table) 04/03/17 20:35 Blood Culture - Preliminary Blood No Growth after 48 hours Assessment and Plan Assessment: Patient is here today with a past medical history of atrial fibrillation, hypertension, obstructive sleep apnea, breast cancer, history of humeral fracture, cervical radiculopathy, osteoarthritis of shoulder, presented to the emergency room on April 03 with complaints of fever fatigue and generally feeling unwell with a cough. Patient stated that she has been drowsier in the past week since starting gabapentin which was prescribed by us for cervical radiculopathy. Patient was prescribed gabapentin 300 mg daily at bedtime and found that she slept late into the next day, patient did call our office about this and we prescribed gabapentin 100 mg per patient to take and build up to 300 mg slowly, however patient states after 2 days to gabapentin 100 mg she felt the same increase drowsiness and did sleep in until very late. Patient states that week she went to dinner with her children and see that she had no appetite and she's been feeling very cold with a fever and at that time she was and then she was. Patient was previously seen as an inpatient consult by us for possible polymyalgia rheumatica which was ruled out as patient does have at that time had a humeral fracture as well as degenerative disc disease of the cervical spine which was causing cervical radiculopathy for which we prescribed the gabapentin. At this time it does not seem that patient is in much pain as she is currently on Ultram however she still complains of stiffness in the neck and tenderness of the trapezius. Patient did have 8 sessions of physical therapy for her shoulders which may also exacerbated her pain as well as general myalgia from influenza. Patient was seen [facility] in the last few weeks and was given a cortisone injection in the right shoulder. In the emergency room and chest x-ray was completed was performed which showed numerous nodules opacities and test for influenza A was positive CT of the chest show nodularities similar to will see on chest x-ray measuring 5 mm right- sided and 4 mm lingual pulmonary nodules, pulmonology has been consulted and has cleared patient for discharge. Patient does have does have breast cancer and history of non-Hodgkin's lymphoma and is currently being followed by Dr. Rivera. ESR was ordered on April 05 which was 77 which is elevated but is most likely related to patient's influenza. Patient did also present with BRADLEY but is resolving, creatinine improved from 1.3 to 1.1. On physical exam there is no tristin evidence of synovitis. Patient continues to have pain in the neck and upper extremities due to cervical radiculopathy, arthritis in the shoulder as seen on x-ray and fracture of left humerus. At this time as patient's pain is still due mostly to cervical radiculopathy as she has known degenerative arthritis and changes in the spine and shoulders. Patient is very sensitive to medications so that will be taken into consideration and patient may also be referred for interventional pain management when she is seen at our office as an outpatient. Patient will see us as an outpatient after she is discharged from here for further plan of care regarding her cervical radiculopathy. (1) Cervical radiculopathy Current Visit: No Status: Chronic Priority: Medium Code(s): M54.12 - RADICULOPATHY, CERVICAL REGION SNOMED Code(s): 64741922 (2) Fibromyalgia Current Visit: No Status: Chronic Priority: Low Code(s): M79.7 - FIBROMYALGIA SNOMED Code(s): 040721031 (3) Osteoarthritis involving multiple joints on both sides of body Current Visit: No Status: Chronic Priority: Medium Code(s): M15.9 - POLYOSTEOARTHRITIS, UNSPECIFIED SNOMED Code(s): 207997305 (4) Breast cancer Current Visit: No Status: Chronic Code(s): C50.919 - MALIGNANT NEOPLASM OF UNSP SITE OF UNSPECIFIED FEMALE BREAST SNOMED Code(s): 609477063 (5) Influenza Current Visit: Yes Status: Acute Priority: High Code(s): J11.1 - FLU DUE TO UNIDENTIFIED INFLUENZA VIRUS W OTH RESP MANIFEST SNOMED Code(s): 1259582 (6) Pain in both upper extremities Current Visit: Yes Status: Chronic Priority: Medium Code(s): M79.601 - PAIN IN RIGHT ARM; M79.602 - PAIN IN LEFT ARM SNOMED Code(s): 450556466 (7) Left humeral fracture Current Visit: No Status: Acute Code(s): S42.302A - UNSP FRACTURE OF SHAFT OF HUMERUS, LEFT ARM, INIT SNOMED Code(s): 35259326 Plan: At this time as patient's pain is still due mostly to cervical radiculopathy as she has known degenerative arthritis and changes in the spine and shoulders. Patient is very sensitive to medications so that will be taken into consideration and patient may also be referred for interventional pain management when she is seen at our office as an outpatient. Patient will see us as an outpatient after she is discharged from here for further plan of care regarding her cervical radiculopathy. Time with Patient: Greater than 30
[2017-04-06 17:50] LABS: Glucose,Whole Blood 146 mg/dL (75-99)
[2017-04-06 20:52] LABS: Glucose,Whole Blood 203 mg/dL (75-99)
[2017-04-06] MEDS: RIVAROXABAN 10 MG TAB PO SCH (21:58)
[2017-04-06] MEDS: ATORVASTATIN 10 MG TAB PO SCH (21:58)
[2017-04-06] MEDS: LISINOPRIL 20 MG TAB PO SCH (21:58)
[2017-04-06] MEDS: MULTIVITAMINS, THERA 1 EACH TAB PO SCH (21:58)
[2017-04-06] MEDS: LETROZOLE 2.5 MG TAB PO SCH (21:59)
[2017-04-06] MEDS: POTASSIUM CHLORIDE ER 20 MEQ TAB.ER PO SCH (22:05)
[2017-04-07] MEDS: SODIUM CHLORIDE 0.9% 1,000 ML IV SCH ×2 (06:56→16:26)
[2017-04-07 07:37] LABS: Glucose,Whole Blood 84 mg/dL (75-99)
[2017-04-07] MEDS: INSULIN ASPART 100 UNIT/ML 1 ML 10 ML VIAL SQ SCH ×4 (07:46→21:23)
[2017-04-07] MEDS: IPRATROPIUM-ALBUTEROL 3 ML NEB INHALATION SCH ×4 (07:56→19:56)
--- NOTE | 2017-04-07 08:48 | PN ---
PROGRESS NOTE This is a 66-year-old white female who came into the emergency room with a chief complaint of fever and malaise and fatigue. While in there, she had a positive influenza A test. She also became very fatigued. She had severe muscle aches especially in both shoulders. At this period of time, she has a history of COPD, fibromyalgia, GE reflux, deep vein thrombosis, hyperlipidemia, hypertension, osteoarthritis. She also has had non-Hodgkin's lymphoma in the past and breast cancer. She uses a nebulizer at home for her asthma and also sleep apnea, CPAP machine. The patient states that she had a history of cardiac stents fail with felt to be anaphylactic in reaction to anesthesia. She was diagnosed with a TIA in the winter of 2016 after experiencing left-sided numbness. She was then started on Xarelto and continued on that accordingly. In the emergency room, the chest x-ray was pretty well negative except for some nodular appearing opacities bilateral, which could represent metastatic disease. She was followed in the hospital and all the days that she has been in the hospital she was continued with cough and she continued with severe arm pain. Orthopedic surgery has seen her and they are feeling that this is related to her fracture. Rheumatology is seeing her and there is feeling that is probably related with her neck. Neither of which either one of them explains the major changes in her right and left shoulder and on the progression of the pain. There is some concern that this might be metastatic disease to the to the shoulder joints themselves and at this point Oncology has been consulted. REVIEW OF SYSTEMS: ENT: She does have a dry mouth. She has some postnasal drip. EYES: She has been able to see well. PSYCHIATRIC: She has been both anxious throughout the entire stay, but no depression. CHEST: She has been coughing considerably. HEART: No palpitations. No chest pain. No orthopnea. No proximal nocturnal dyspnea. ABDOMEN: She has been nauseated from time to time. No constipation. No diarrhea. No hematemesis, no hematochezia. NEUROMUSCULAR: She has a pain in her right shoulder and her left shoulder, both of which she feels is the same type of pain. She has a very hard time lifting them at all. GENITOURINARY: Has been normal with normal urination. INTEGUMENTARY: She has no rashes at this time. ALLERGY: She had has had a stuffy nose. LAB WORK: Today, WBC is 4.6, and she has a hemoglobin of 8.3, normal MCV, normal MCH. Retic count is elevated at 15, 6. Her Chem 17: Creatinine is at 1.13 with a BUN of 16, and blood sugars here in the hospital have been normal. Vital signs for H and P: Temperature 98.8, heart rate is in the 80s, respiratory rate is 18 and coughing. The blood pressure is 139/59. EYES: Pupils are equal, round, react to light and accommodation. ENT: Showed tympanic membranes and pharynx to be negative. NECK: Supple with a midline trachea. CHEST: Essentially clear to auscultation except for some rhonchi in the lower lungs and patient is coughing throughout the exam. HEART: Sinus rhythm with no murmur. ABDOMEN: Soft, nontender with no organomegaly. LOWER EXTREMITIES: Good palpable pulses. She has got arthritis seen in both knees. Some arthritis in her hands. Range of motion of shoulders are decreased bilaterally in all planes and very painful. Vascular in the lower extremities is within normal limits. GENITOURINARY: Not examined. The patient is urinating fine. ASSESSMENT: 1. General malaise, fever and cough secondary to influenza A what appears to be a mixed normocytic normochromic anemia and chronic disease. 2. Acute kidney injury with a creatinine 1.3, baseline of 8. 3. Dehydration secondary to decreased oral intake. 4. Mild hyperkalemia secondary to potassium replacement, which is now resolved. 5. Hyperglycemia secondary to steroid use. 6. Recent fall with a previous left ankle fracture and humeral fracture being treated as a closed fracture. 7. Severe pain in bilateral upper extremities may be secondary to recent humeral fracture, but underlying malignancy cannot be excluded. The quandary is that the right shoulder is painful as the left and there is no fracture there. 8. History of atrial fib, maintained on long-term of Xarelto. 9. History of transient ischemic attack. 10.History of deep vein thrombosis. 11.Patient has had breast cancer. 12.Patient has had non Hodgkin lymphoma. 13.Essential hypertension. 14.Hyperlipidemia. 15.Fibromyalgia. 16.Sleep apnea. 17.Gastroesophageal reflux. PLAN: Appreciate Pulmonary consult. Orthopedic consult was read and rheumatological consult was read. Still waiting for patient's oncology consult. Will maintain on pain medication, will control hyperglycemia. Appropriate medications will be continued including GI prophylaxis and DVT prophylactics. Some subacute rehab on discharge will be recommended. MMODL / IJN: [id number] /
[2017-04-07] MEDS ORDERED: predniSONE 10 MG TAB PO SCH (09:00)
[2017-04-07] MEDS: predniSONE 20 MG TAB PO SCH (09:08)
[2017-04-07] MEDS: METOPROLOL TARTRATE 25 MG TAB PO SCH ×2 (09:08→21:38)
[2017-04-07] MEDS: FERROUS SULFATE 325 MG TAB PO SCH ×2 (09:08→16:25)
[2017-04-07] MEDS: MELOXICAM 7.5 MG TAB PO SCH (09:09)
[2017-04-07] MEDS: amLODIPine 5 MG TAB PO SCH ×2 (09:09→21:38)
[2017-04-07] MEDS: FAMOTIDINE 20 MG TAB PO SCH (09:09)
[2017-04-07] MEDS: cloNIDine HCL 0.1 MG TAB PO SCH ×2 (09:09→21:39)
[2017-04-07] MEDS: traMADol 50 MG TAB PO SCH ×3 (09:25→21:34)
[2017-04-07] MEDS: OSELTAMIVIR 60 MG/10 ML ORAL SYRINGE PO SCH ×2 (09:27→21:42)
[2017-04-07 11:06] LABS: Basophils % (A) 0 %; Eosinophils % (A) 1 %; HCT 26.9 % (34.0-46.0); HGB 8.6 gm/dL (11.4-16.0); Hypochromasia Slight; Lymphocytes # (A) 0.7 k/uL (1.0-4.8); Lymphocytes % (A) 16 %; MCH 30.4 pg (25.0-35.0); MCHC 32.1 g/dL (31.0-37.0); MCV 94.5 fL (80.0-100.0); Mean Platelet Volume 8.4; Monocytes # (A) 0.3 k/uL (0-1.0); Monocytes % (A) 7 %; Neutrophils # (A) 3.2 k/uL (1.3-7.7); Neutrophils % (A) 76 %; Platelet Count 182 k/uL (150-450); Poikilocytosis Moderate; RBC 2.84 m/uL (3.80-5.40); RDW 14.9 % (11.5-15.5); WBC 4.2 k/uL (3.8-10.6)
[2017-04-07 11:11] LABS: Anion Gap 11 mmol/L; Blood Urea Nitrogen 14 mg/dL (7-17); Calcium 9.4 mg/dL (8.4-10.2); Carbon Dioxide 21 mmol/L (22-30); Chloride 112 mmol/L (98-107); Glucose 130 mg/dL (74-99); Sodium 144 mmol/L (137-145)
[2017-04-07 11:15] LABS: Potassium 3.6 mmol/L (3.5-5.1)
[2017-04-07 11:19] LABS: Glucose,Whole Blood 115 mg/dL (75-99)
[2017-04-07 11:21] LABS: Poikilocytosis (M) Present; Polychromasia Present
--- NOTE | 2017-04-07 13:24 | P.CONS ---
History of Present Illness - Reason for Consult Consult date: 04/07/17 Hx breast cancer Requesting physician: Camilla Turner - Chief Complaint fever, cough - History of Present Illness Mrs. Moya is a very pleasant female pt of Dr. Rivera with a history of diffuse large B cell lymphoma diagnosed in 1998 when she presented with bowel obstruction, had exploratory surgery, biopsy confirmed diagnosis, treated with one and half cycles of chemotherapy by Dr. Garza and she decided to discontinue it. She did well until February 2015 when she she presented with palpable left breast mass, left breast U/S revealed 1.8cm mass at 8:00 o'clock left breast, core biopsy was positive for invasive carcinoma, ER+,IN- and HER2/ FREDA negative by FISH, 04/29/15 she had lumpectomy and axillary node resection, pathology revealed 2 foci of invasive carcinoma, 1.9cm and 4 mm, 03/29 nodes positive for macrometastasis, OncotypeDx revealed a recurrence score of 18 and the patient decided to proceed with radiation and endocrine therapy, completed adjuvant radiation 07/28/15, started arimidex 07/27,then switched to femara, I thinks she also tried aromasin for a while, then went back to femara. Bone density 02/09/16 revealed mild osteopenia, mammograms on 02/09/16 negative. She fell in Feb 2017 and had multiple fractures, this was worked up for metastasis to bones, that work up was negative, pt continued of AI. Now, pt resents with influenza, feeling well today, breathing is stable, no recent fever, chills, appetite is good, no recent wt. loss, no new pain to report. Review of Systems 10 point ROS as stated in HPI Past Medical History Past Medical History: Atrial Fibrillation, Asthma, Cancer, Deep Vein Thrombosis (DVT), Fibromyalgia, GERD/Reflux, Hyperlipidemia, Hypertension, Osteoarthritis ( OA), Pneumonia, Sleep Apnea/CPAP/BIPAP Additional Past Medical History / Comment(s): Morbid obesity, bronchial asthma, paroxysmal atrial fibrillation, obstructive sleep apnea, degenerative arthritis , history of fall and ankle fracture, left-sided breast cancer with previous lumpectomy radiation therapy, history of non-Hodgkin's lymphoma 20 years ago requiring a bowel resection followed by systemic chemotherapy, osteoarthritis, hyperlipidemia, hypertension, fibromyalgia, acid reflux, remote history of DVT History of Any Multi-Drug Resistant Organisms: None Reported Past Surgical History: Adenoidectomy, Appendectomy, Bowel Resection, Breast Surgery, Cholecystectomy, Hysterectomy, Joint Replacement, Orthopedic Surgery, Tonsillectomy, Tubal Ligation Additional Past Surgical History / Comment(s): L breast core bx, L breast lumpectomy/sentinel node bx, I&D abscess in abdomin after hysterectomy, total R knee arthroplasty, bowel resection for cancer, NAE, colonoscopies. Past Anesthesia/Blood Transfusion Reactions: Previous Problems w/ Anesthesia, Postoperative Nausea & Vomiting (PONV) Additional Past Anesthesia/Blood Transfusion Reaction / Comm: States she had a cardiac arrest with last intubation 6 yrs. ago-needs fibro optic intubation. Past Psychological History: No Psychological Hx Reported Additional Psychological History / Comment(s): Pt resides alone in an apartment. She has a Cpap machine. She can drive. Smoking Status: Never smoker Past Alcohol Use History: None Reported Past Drug Use History: None Reported - Past Family History Brother(s) Family Medical History: Cancer, Pulmonary Embolus Additional Family Medical History / Comment(s): Non-Hodgin's Lymphoma, Pt. states her brother from a bld. clot. not sure if it was a PE. Sister(s) Family Medical History: Cancer Additional Family Medical History / Comment(s): Non-Hodgkin's Lymphoma Medications and Allergies Home Medications Medication Instructions Recorded Confirmed Type Albuterol Nebulized [Ventolin 2.5 mg INHALATION RT-QID PRN 04/22/15 04/03/17 History Nebulized] Celecoxib [CeleBREX] 200 mg PO DAILY 04/22/15 04/03/17 History Metoprolol Succinate [Toprol XL] 25 mg PO BID 04/22/15 04/03/17 History Multivitamins, Thera [Multivitamin] 1 tab PO HS 04/22/15 04/03/17 History Ranitidine HCl [Zantac] 150 mg PO DAILY 04/22/15 04/03/17 History Rosuvastatin Calcium [Crestor] 5 mg PO HS 04/22/15 04/03/17 History amLODIPine [Norvasc] 5 mg PO BID 04/22/15 04/03/17 History Cholecalciferol (Vitamin D3) 4,000 unit PO HS 02/28/17 04/03/17 History [Vitamin D3] Letrozole 2.5 mg PO HS 02/28/17 04/03/17 History Lisinopril [Prinivil] 40 mg PO HS 02/28/17 04/03/17 History Potassium Chloride ER [K-Dur 20] 20 meq PO HS 02/28/17 04/03/17 History Rivaroxaban [Xarelto] 20 mg PO HS 02/28/17 04/03/17 History traMADol HCl [Ultram] 50 - 100 mg PO Q8H PRN 02/28/17 04/03/17 History cloNIDine HCL [Catapres] 0.1 mg PO BID 04/03/17 04/03/17 History Allergies Allergy/AdvReac Type Severity Reaction Status Date / Time simvastatin [From Zocor] Allergy Unknown Verified 04/03/17 20:09 codeine AdvReac Nausea & Verified 04/03/17 20:09 Vomiting Penicillins AdvReac Nausea & Verified 04/03/17 20:09 Vomiting Physical Exam Vitals: Vital Signs Temp Pulse Pulse Resp BP Pulse Ox 04/07/17 11:47 80 04/07/17 11:35 84 04/07/17 09:59 161/81 04/07/17 08:10 88 04/07/17 07:58 80 04/07/17 07:00 97.0 F L 74 16 177/87 95 04/06/17 23:00 98.8 F 84 18 139/59 98 04/06/17 19:03 88 04/06/17 18:51 84 04/06/17 15:53 84 04/06/17 15:43 88 04/06/17 15:00 97.9 F 88 16 164/80 99 Intake and Output 04/06/17 04/07/17 04/07/17 22:59 06:59 14:59 Other: Voiding Method Toilet # Voids 2 4 1 # Bowel Movements 1 - Constitutional General appearance: average body habitus, cooperative, no acute distress - EENT Eyes: anicteric sclerae, PERRLA, normal appearance - Neck Neck: no lymphadenopathy - Respiratory Respiratory: bilateral: diminished - Cardiovascular Rhythm: regular Heart sounds: normal: S1, S2 Abnormal Heart Sounds: no systolic murmur, no diastolic murmur, no rub, no S3 Gallop, no S4 Gallop, no click, no other leg Peripheral Edema: bilateral: None - Gastrointestinal General gastrointestinal: no absent bowel sounds, no decreased bowel sounds, no distended, no hepatomegaly, no hyperactive bowel sounds, normal bowel sounds, no organomegaly, no rigid, no scaphoid, soft, no splenomegaly, no tenderness, no umbilical hernia, no ventral hernia - Integumentary Integumentary: normal - Neurologic Neurologic: CNII-XII intact - Musculoskeletal Musculoskeletal: strength equal bilaterally - Psychiatric Psychiatric: A&O x's 3, appropriate affect, intact judgment & insight Results CBC & Chem 7: 04/07/17 09:56 04/07/17 09:56 Labs: Abnormal Lab Results - Last 24 Hours (Table) 04/06/17 04/06/17 04/07/17 Range/Units 17:37 20:43 09:56 RBC 2.84 L (3.80-5.40) m/uL Hgb 8.6 L (11.4-16.0) gm/dL Hct 26.9 L (34.0-46.0) % Lymphocytes # 0.7 L (1.0-4.8) k/uL Chloride (98-107) mmol/L Carbon Dioxide (22-30) mmol/L Glucose (74-99) mg/dL POC Glucose (mg/dL) 146 H 203 H (75-99) mg/dL 04/07/17 04/07/17 Range/Units 09:56 11:16 RBC (3.80-5.40) m/uL Hgb (11.4-16.0) gm/dL Hct (34.0-46.0) % Lymphocytes # (1.0-4.8) k/uL Chloride 112 H (98-107) mmol/L Carbon Dioxide 21 L (22-30) mmol/L Glucose 130 H (74-99) mg/dL POC Glucose (mg/dL) 115 H (75-99) mg/dL Microbiology - Last 24 Hours (Table) 04/03/17 20:35 Blood Culture - Preliminary Blood No Growth after 72 hours Chest x-ray: report reviewed CT scan - chest: report reviewed Assessment and Plan (1) Influenza Narrative/Plan: Being treated for the same by IM, symptoms improved Current Visit: Yes Status: Acute Priority: High Code(s): J11.1 - FLU DUE TO UNIDENTIFIED INFLUENZA VIRUS W OTH RESP MANIFEST SNOMED Code(s): 3157455 (2) Breast cancer Narrative/Plan: Pt is current of follow up, her most recent work up for mets was in Feb. Recommend CT follow up of lung nodules in 3-4 months (she can do this prior to her next f/u with Dr. Rivera in June). Current Visit: No Status: Chronic Code(s): C50.919 - MALIGNANT NEOPLASM OF UNSP SITE OF UNSPECIFIED FEMALE BREAST SNOMED Code(s): 082432738 (3) Anemia Narrative/Plan: Likely related to acute illness and history of chemo. No need for transfusion, would recommend she follow up with PCP in a few weeks after recovering from flu to see if Hgb has returned to normal. Current Visit: Yes Status: Acute Priority: Medium Code(s): D64.9 - ANEMIA , UNSPECIFIED SNOMED Code(s): 562573507
--- NOTE | 2017-04-07 15:23 | P.PN ---
Subjective Progress Note Date: 04/07/17 Principal diagnosis: Acute influenza A infection A very pleasant 66-year-old female patient, morbidly obese, known history of COPD, and history of obstructive sleep apnea and she uses a CPAP machine on outpatient basis, started getting sick over the past several days. The patient presented to the ED with generalized weakness, diffuse body aches, some chills and fever and she also reported some limited cough. No chest pain. No pleurisy. She was very weak and at one point she was noted to have some altered mentation without any headache or any neck stiffness. Ultimately her mental status normalized and she was brought into the hospital where she was found to have positive influenza A negative influenza B and she was started on IV fluids and Tamiflu. Note that the patient had a fall approximately a month and a half ago with fracture in her right ankle and subsequently she had another fall resulting into a humeral injury. All these orthopedic complications were treated appropriately. She is resting comfortably in bed. Her chest x-ray showed no acute abnormalities. CAT scan of the chest was also done and it showed no acute abnormalities. There was a 4 mm lingular nodule that warrants no further investigation. The ascending aorta was ectatic measuring 2.9 cm in size. Postsurgical changes were seen in the left breast. There is also a left renal calculus measuring 2 mm in size. Blood work shows no significant leukocytosis. The patient is a chronic anemia. Creatinine is 1.1 and the patient is producing adequate amount of urine output. Troponin is negative. BNP level was nonelevated. On 04/05/2017 patient seen in follow-up. Denies any r, she has been up ambulating in the hallway, tolerating it well. Lung sounds are clear, diminished, no rhonchi no wheezes noted. No significant sputum production or chest congestion. On room air with O2 sat at 94%. No febrile episodes in the last 24 hours. Today's lab work shows the WBC within normal limits at 4.3, hemoglobin is 8.1, B1 of 15, and creatinine of 1.08. She has refused receiving Tamiflu, oral prednisone and nebulized treatments. Her biggest concern today is her ongoing bilateral shoulder motion limitation and pain. Orthopedic consult ordered in regards to that. Physical therapy has recommended subacute rehab placement at the time of discharge. On 04/06/2017 patient seen in follow-up on medical surgical floor. Denies any respiratory difficulty, lung sounds are clear, diminished at the bases, no rhonchi or wheezing noted. Currently on room air, with O2 sat at 92%. Vital signs are stable, afebrile. Blood cultures are negative at the 48 hour sahara. She continues with bilateral shoulder motion limitation, orthopedic consultation was noted. On 04/07/2017 patient significant on medical surgical floor. Denies any worsening dyspnea. Vitals remained stable, she is on room air at 97%. She has been evaluated by rheumatology, medical oncology orthopedics is in regards to bilateral upper shoulder pain and limitation of range of motion. Rheumatology recommended following up as an outpatient, possible referral to the management services. Discharge planning is in progress for placement in a subacute rehab Objective - Vital Signs Vital signs: Vital Signs Temp 97.6 F 04/07/17 14:55 Pulse 81 04/07/17 14:55 Resp 16 04/07/17 14:55 BP 140/67 04/07/17 14:55 Pulse Ox 97 04/07/17 14:55 Intake & Output 04/06/17 04/07/17 04/07/17 18:59 06:59 18:59 Other: Voiding Method Toilet # Voids 1 4 2 # Bowel Movements 1 - Exam GENERAL: This is a 66-year-old female in no apparent distress at the time of examination. Pleasant and cooperative. HEENT: Head is atraumatic, normocephalic. Pupils are equal, round, and reactive to light. Sclerae anicteric. Conjunctivae are clear. Mucus membranes of the mouth are moist. Neck is supple. Patient has a Mallampati class IV with significant crowding of the posterior oropharynx. RESPIRATORY: Clear to ausculation. No wheezes, rales, or rhonchi. No use of accessory muscles. Patient maintaining oxygen saturation greater than 92% on room air. No chest wall tenderness is noted on palpation or with deep breathing. CARDIOVASCULAR: Regular rate and rhythm. S1 and S2 noted. No systolic or diastolic murmur auscultated. No JVD noted. No S3 or S4 noted. GASTROINTESTINAL: No distention noted. Abdomen soft and round. Normal active bowel sounds auscultated x 4 quadrants. No pain or tenderness noted upon palpation. INTEGUMENTARY: No cyanosis. No jaundice. No rashes noted. No cellulitis noted. EXTREMITIES: 2+ peripheral pulses. No evidence of peripheral edema. No calf tenderness noted. Bilateral upper shoulder limitation of range of motion and pain NEUROLOGIC: Cranial nerves II-XII intact. PSYCHIATRIC: Awake, alert, and oriented X 3. Appropriate affect. Intact judgement and insight. - Labs CBC & Chem 7: 04/07/17 09:56 04/07/17 09:56 Labs: Abnormal Lab Results - Last 24 Hours (Table) 04/06/17 04/06/17 04/07/17 Range/Units 17:37 20:43 09:56 RBC 2.84 L (3.80-5.40) m/uL Hgb 8.6 L (11.4-16.0) gm/dL Hct 26.9 L (34.0-46.0) % Lymphocytes # 0.7 L (1.0-4.8) k/uL Chloride (98-107) mmol/L Carbon Dioxide (22-30) mmol/L Glucose (74-99) mg/dL POC Glucose (mg/dL) 146 H 203 H (75-99) mg/dL 04/07/17 04/07/17 Range/Units 09:56 11:16 RBC (3.80-5.40) m/uL Hgb (11.4-16.0) gm/dL Hct (34.0-46.0) % Lymphocytes # (1.0-4.8) k/uL Chloride 112 H (98-107) mmol/L Carbon Dioxide 21 L (22-30) mmol/L Glucose 130 H (74-99) mg/dL POC Glucose (mg/dL) 115 H (75-99) mg/dL Microbiology - Last 24 Hours (Table) 04/03/17 20:35 Blood Culture - Preliminary Blood No Growth after 72 hours Assessment and Plan Plan: Assessment: 1 acute influenza A infection involving the respiratory tract and the patient has associated systemic illness from influenza syndrome, currently on Tamiflu 2 morbid obesity 3 chronic bronchial asthma 4 obstructive sleep apnea maintained on CPAP therapy 5 fibromyalgia 6 hypertension 7 hyperlipidemia 8 remote history of breast cancer, surgically resected 9 remote history of non-Hodgkin's lymphoma of the bowel, surgically resected subsequent chemotherapy 10 history of recurrent falls with left ankle fracture and left humeral fracture not requiring any surgical intervention 11 acute kidney injury with a creatinine of 1.3, improving and the creatinine is down to 1.1 with a baseline creatinine of 0.8 12 chronic normocytic anemia 13 nonobstructive left renal calculus 14 Paroxysmal atrial fibrillation 15 pain in both upper extremities, orthopedic service is following Plan From pulmonary standpoint patient is stable for discharge to subacute rehab once cleared by other consultants. New complaints, no acute events overnight. He is on room air, maintaining good oxygenation, continue nebulized treatments, finish 5 day of Tamiflu, continue oral prednisone. Increase activity as tolerated. Patient is stable for discharge to the rehab facility from pulmonary standpoint, continue to follow with you on as-needed basis. I performed a history & physical examination of the patient and discussed their management with my nurse practitioner, Ivonne Bowser. I reviewed the nurse practitioner's note and agree with the documented findings and plan of care. Lung sounds are clear. The findings and the impression was discussed with the patient. I attest to the documentation by the nurse practitioner. Time with Patient: Less than 30
[2017-04-07 16:59] LABS: Glucose,Whole Blood 154 mg/dL (75-99)
[2017-04-07 20:51] LABS: Glucose,Whole Blood 127 mg/dL (75-99)
[2017-04-07] MEDS: POTASSIUM CHLORIDE ER 20 MEQ TAB.ER PO SCH (21:34)
[2017-04-07] MEDS: LETROZOLE 2.5 MG TAB PO SCH (21:35)
[2017-04-07] MEDS: LISINOPRIL 20 MG TAB PO SCH (21:37)
[2017-04-07] MEDS: RIVAROXABAN 10 MG TAB PO SCH (21:38)
[2017-04-07] MEDS: ATORVASTATIN 10 MG TAB PO SCH (21:38)
[2017-04-07] MEDS: MULTIVITAMINS, THERA 1 EACH TAB PO SCH (21:38)
[2017-04-08] MEDS: SODIUM CHLORIDE 0.9% 1,000 ML IV SCH ×2 (02:37→13:58)
[2017-04-08 06:24] VITALS: BP 160/86; RESP 14; TEMP 98.8
[2017-04-08 07:25] LABS: Glucose,Whole Blood 88 mg/dL (75-99)
[2017-04-08] MEDS: IPRATROPIUM-ALBUTEROL 3 ML NEB INHALATION SCH ×2 (08:34→11:50)
[2017-04-08] MEDS: INSULIN ASPART 100 UNIT/ML 1 ML 10 ML VIAL SQ SCH ×2 (09:07→13:58)
[2017-04-08] MEDS: OSELTAMIVIR 60 MG/10 ML ORAL SYRINGE PO SCH (09:08)
[2017-04-08] MEDS: METOPROLOL TARTRATE 25 MG TAB PO SCH (09:09)
[2017-04-08] MEDS: FERROUS SULFATE 325 MG TAB PO SCH (09:09)
[2017-04-08] MEDS: MELOXICAM 7.5 MG TAB PO SCH (09:10)
[2017-04-08] MEDS: predniSONE 20 MG TAB PO SCH (09:10)
[2017-04-08] MEDS: FAMOTIDINE 20 MG TAB PO SCH (09:10)
[2017-04-08] MEDS: amLODIPine 5 MG TAB PO SCH (09:10)
[2017-04-08] MEDS: cloNIDine HCL 0.1 MG TAB PO SCH (09:10)
[2017-04-08] MEDS: traMADol 50 MG TAB PO SCH (09:15)
--- NOTE | 2017-04-08 09:31 | PN ---
PROGRESS NOTE The patient is still feeling weak, still coughing. Arm pain is still a fair amount. Had her consultation with Oncology for evaluation of possibility of metastatic disease to the humeral areas. Their recommendation is that she has influenza, that she has breast cancer and that she most recently had a for mets in February. They are recommending a CT followup for lung nodules in 3 to 4 months and to follow up with Dr. Rivera in June and also they commented on her anemia. Pulmonology feels that she has been discharged from a pulmonology point of view. She still has a fair amount of shoulder pain. She is still short of breath. At this period of time, she has a hemoglobin of 8.6 with a 4.2 WBC. Her basic Chem is within normal limits. REVIEW OF SYSTEMS: CARDIOPULMONARY: Still cough, shortness of breath with minimal chest pain. ABDOMEN: She has some nausea, nonspecific abdominal pain. : Negative. NEUROMUSCULAR: Just the shoulder pain is exquisite at times, painful, occasionally leg pain too. Her vital signs showed a blood pressure 160/86, heart rate 78, temperature is 98.8 with a respiratory rate of 14. EYES: Pupils are equal, round, reactive to light and accommodation. ENT shows tympanic membranes and pharynx to be negative. NECK: Supple with midline trachea. Chest has rhonchi throughout with minimal wheezes. HEART: Sinus rhythm with no murmur. ABDOMEN: Soft, nontender with no organomegaly. Lower extremities has +1 swelling of lower extremities. She has decreased range of motion of her shoulders with exquisite pain to minimal range of motion still at this period of time. MEDICATIONS: Medications at this point are that of DuoNeb b.i.d. She is also on Norvasc 5 twice a day, Lipitor 10 daily, Catapres 0.1 twice a day, Pepcid 20 daily, 325 of Feosol b.i.d., Dilaudid p.r.n. pain. She is on insulin scale at this period of time, but has not had any, Femara is 2.5 daily, Zestril 40 mg daily, Mobic 15 mg daily, Lopressor 20 b.i.d., Theragran 1 daily, Zofran, Tamiflu 30 b.i.d. still as scheduled, potassium K-Dur 20 mg daily, prednisone 20 daily, Xarelto 20 daily, Ultram 50 mg up to 3 times a day for pain. ASSESSMENT: Her assessment at this time: 1. General malaise, fever, cough, secondary to influenza A. 2. Mixed normochromic normocytic anemia. 3. Acute kidney injury with creatinine of baseline of 1.3. 4. Hydration secondary to decreased oral intake. 5. Mild hyperkalemia secondary to replacement, now resolved. 6. Hyperglycemia. 7. Fall with left ankle fracture and humeral fracture. 8. Severe upper extremity pain with recent fracture, but bone pain of the opposite shoulder not well explained. 9. History of atrial fibrillation, maintained on Xarelto, ischemic. 10.Transient ischemic attack. 11.Deep vein thrombosis. 12.History of breast cancer. 13.History non-Hodgkin's lymphoma. 14.Essential hypertension. 15.Hyperlipidemia. 16.Fibromyalgia. 17.Sleep apnea. 18.Gastroesophageal reflux disease. Will follow patient accordingly. Continue with same medications for 1 more day. Subacute rehab. Probably discharge here in the next short period of time. MMODL / IJN: [id number] /
--- NOTE | 2017-04-08 11:44 | CDI ---
Documentation Clarification Form Date: 04/08/2017 CDS: Ana Khan, CCS, CCDS Admit Date: 04/03/2017 Patient Name: Arcelia Moya ATTENTION: The Clinical Documentation Specialists (CDI) and [facility] Coding Staff appreciate your assistance in clarifying documentation. Please respond to the clarification below the line at the bottom and electronically sign. The CDI & [facility] Coding staff will review the response and follow-up if needed. Please note: Queries are made part of the Legal Health Record. If you have any questions, please contact the author of this message via ITS. Dr. Schmid: Patient is admitted with Influenza A, Acute Kidney Failure and normocytic anemia nos. Patient history/risk factors: NonHodgkin's Lymphoma, Left Breast CA sp chemo, COPD. Clinical Indicators: Radiology: Pulmonary nodules Labs: WBC 3.2*, RBC 2.87*, Hgb 9.0*, Hct 26.8*, Pl Ct 123* Vital Signs: T 101.0, P 106, R 23, BP 128/62, PO 93 ra Treatment: Tamiflu, Albuterol Neb INH, Kcl 20 meq, IV Zofran, IV Tylenol, IV fluid bolus, IV fluid rate 100, IV Solumedrol, O2 2Lnc In your professional opinion, can you please clarify if these findings signify one of the following conditions? Pancytopenia drug induced, specify drug Pancytopenia due to other, please specify Anemia, please specify etiology Other, please specify: Unknown or undetermined. Please continue to document in your progress notes and discharge summary in order to capture severity of illness and risk of mortality. Include clinical findings that support your diagnosis. MTDD
[2017-04-08 12:09] VITALS: PULSE 88
[2017-04-08 12:09] LABS: Glucose,Whole Blood 111 mg/dL (75-99)
[2017-04-08] MEDS ORDERED: HYDROmorphone 2 MG TAB PO PRN (14:14)
--- NOTE | 2017-04-15 08:35 | CDI ---
Last Revision, February 2017 Documentation Clarification Form Date: 04/05/2017 8:03:00 AM From: Ana Khan [facility], CCDS Admit Date: 04/03/2017 9:51:00 PM Patient Name: Arcelia Moya Visit Number: [id number] Discharge Date: 04/08/2017 ATTENTION: The Clinical Documentation Specialists (CDI) and [facility] Coding Staff appreciate your assistance in clarifying documentation. Please respond to the clarification below the line at the bottom and electronically sign. The CDI & [facility] Coding staff will review the response and follow-up if needed. Please note: Queries are made part of the Legal Health Record. If you have any questions, please contact the author of this message via ITS. Dr. Williams Schmid: Patient is admitted with Influenza A, Acute Kidney Failure and normocytic anemia nos. Patient history/risk factors: NonHodgkin's Lymphoma, Left Breast CA sp chemo, COPD. Clinical Indicators: Radiology: Pulmonary nodules Labs: WBC 3.2*, RBC 2.87*, Hgb 9.0*, Hct 26.8*, Pl Ct 123* Vital Signs: T 101.0, P 106, R 23, BP 128/62, PO 93 ra Treatment: Tamiflu, Albuterol Neb INH, Kcl 20 meq, IV Zofran, IV Tylenol, IV fluid bolus, IV fluid rate 100, IV Solumedrol, O2 2Lnc In your professional opinion, can you please clarify if these findings signify one of the following conditions? Pancytopenia drug induced, specify drug Pancytopenia due to other, please specify Anemia, please specify etiology Other, please specify: Unknown or undetermined. Please continue to document in your progress notes and discharge summary in order to capture severity of illness and risk of mortality. Include clinical findings that support your diagnosis. MTDD
--- NOTE | 2017-06-17 11:14 | P.DS ---
Providers Date of admission: 04/03/17 21:51 Expected date of discharge: 04/08/17 Attending physician: Williams Schmid Consults: 04/04/17 08:24 Consult Physician Routine Consulting Provider: Pete Gray Consult Reason/Comments: pulmonary nodules Do you want consulting provider notified?: Yes 04/05/17 07:50 Consult Physician Routine Consulting Provider: Enrico De Luna Consult Reason/Comments: recent humerus fx, severe pain to BUE, pt known to you Do you want consulting provider notified?: Yes 04/06/17 11:51 Consult Physician Routine Consulting Provider: Keo Rivera Consult Reason/Comments: rapid progression of arthritis, rule out malignancy , patient known to you Do you want consulting provider notified?: Yes 04/06/17 11:52 Consult Physician Routine Consulting Provider: Lubna Strange Consult Reason/Comments: rapid progression of arthritis, ESR 77 Do you want consulting provider notified?: Yes Primary care physician: Williams Schmid [facility] Course: 66-year-old female who presented to the emergency room on 04/03/2017 with a chief complaint of fever, fatigue, and malaise. The patient states she was has been sleeping for extended periods of time, up to 24 hours at a time last week, which she attributes to a new medication she was started on. She states that over the past four or five days she has had no energy, generalized body aches, fever, and chills. She states that she started coughing on last Tuesday or Tuesday. She states that she tried to drink fluids and continue to eat over the past few days but states that she did have a decrease in her oral intake. She denies chest pain or pressure. Denies nausea or vomiting. Denies abdominal pain. The patient has a history of COPD, fibromyalgia, gastroesophageal reflux disease , deep vein thrombosis, hyperlipidemia, hypertension, osteoarthritis. She fell a few months ago and broke her left ankle and also her humerus. She did not require surgical intervention. She has a nebulizer machine at home but she states that she does not use it often. She does have a history of sleep apnea and uses a CPAP machine nightly. Patient states she had a cardiac arrest approximately 6 years ago and developed atrial fibrillation afterwards. She states that she has not had any further episodes of A. fib to her knowledge. She was diagnosed with a TIA in the winter of 2015 after experiencing left- sided numbness. She takes Xarelto daily for anticoagulation. In the emergency room, a chest x-ray was completed which was negative for an acute abscess. There was numerous nodule appearing opacities bilaterally which metastasis could not be excluded. CT was completed revealing sinus mechanism. Laboratory studies revealed white count of 3.2, platelet count 123, INR 1.2, sodium 137, potassium 5.1, BUN 24, creatinine 1.30, troponin negative 1, BNP 272. Hemoglobin was 9.0. Previous hemoglobin obtained at the end of February 2017 was 12.4. Testing for influenza A was positive. Negative influenza B. Patient underwent CT of the chest on 04/04/2017 which revealed that nodularity seen on chest xray was overestimated and likely related to prominent vessels. It did show a 5mm right-sided and 4mm lingular pulmonary nodule. One year follow up exam was recommended. Patient continued to complain of severe pain to bilateral upper extremities. Patient underwent x-ray of left shoulder on 04/05/2017 which revealed complete loss of glenohumeral joint space with remodeling of the humeral head, unable to exclude a degree of subluxation, severe arthritic changes noted, and due to rapid progession when compared with xray in February 2017 and history of left humerus fracture, posttraumatic osteonecrosis could not be excluded. ESR was ordered yesterday and was 77. Patient has a history of likely polymyalgia rheumatica with a previous sed rate in the 40s on lab work completed on an outpatient basis. Due to the patients history of cancer, oncology was consulted. Also consulted for evaluation of anemia. Oncology recommends patient follow up on lung nodules in 3-[address] No recommendations for transfusion either. Recommend patient repeat hemoglobin in the near future at a follow up visit. The patients respiratory status improved while in the hospital. However, she remained very weak. PT and OT evaluated the patient. Subacute rehab was recommended. Patient was accepted to [facility] with a start date of 04/13/2017. Patient is going to be discharged home today with her daughter Maria Del Rosario and will be staying at her house until admission date at [facility]. The patient was deemed stable for discharge today per Dr. schmid. She is to follow up on an outpatient basis with Dr. schmid and all consulting providers. She is stable at the time of discharge. DISCHARGE DIAGNOSIS: Generalized malaise, fever, cough, secondary to influenza A, improved at time of discharge Mixed normal chromic normocytic anemia, type unknown Acute kidney injury, improved at time of discharge Dehydration secondary to decreased oral intake, improved Mild hyperkalemia secondary to replacement, now resolved Hyperglycemia Recent fall with left ankle fracture and humeral fracture Severe upper extra may pain with recent fracture, but bone pain about this that shoulder is not well explained History of atrial fibrillation, maintained on Xarelto Transient ischemic attack Deep vein thrombosis History of breast cancer History of non-Hodgkin's lymphoma Essential hypertension Hyperlipidemia Fibromyalgia Sleep apnea Gastro-Esophageal reflux disease Nurse practitioner note has been reviewed by physician. Signing provider agrees with the documented findings, assessment, and plan of care. Patient Condition at Discharge: Stable Plan - Discharge Summary New Discharge Prescriptions: No Action amLODIPine [Norvasc] 5 mg PO BID Celecoxib [CeleBREX] 200 mg PO DAILY Rosuvastatin Calcium [Crestor] 5 mg PO HS Ranitidine HCl [Zantac] 150 mg PO DAILY Multivitamins, Thera [Multivitamin] 1 tab PO HS Metoprolol Succinate [Toprol XL] 25 mg PO BID Albuterol Nebulized [Ventolin Nebulized] 2.5 mg INHALATION RT-QID PRN PRN Reason: Shortness Of Breath Or Wheezing Cholecalciferol (Vitamin D3) [Vitamin D3] 4,000 unit PO HS Potassium Chloride ER [K-Dur 20] 20 meq PO HS Letrozole 2.5 mg PO HS Rivaroxaban [Xarelto] 20 mg PO HS traMADol HCl [Ultram] 50 - 100 mg PO Q8H PRN PRN Reason: Pain Lisinopril [Prinivil] 40 mg PO HS cloNIDine HCL [Catapres] 0.1 mg PO BID Discharge Medication List Albuterol Nebulized [Ventolin Nebulized] 2.5 mg INHALATION RT-QID PRN 04/22/15 [ History] Celecoxib [CeleBREX] 200 mg PO DAILY 04/22/15 [History] Metoprolol Succinate [Toprol XL] 25 mg PO BID 04/22/15 [History] Multivitamins, Thera [Multivitamin] 1 tab PO HS 04/22/15 [History] Ranitidine HCl [Zantac] 150 mg PO DAILY 04/22/15 [History] Rosuvastatin Calcium [Crestor] 5 mg PO HS 04/22/15 [History] amLODIPine [Norvasc] 5 mg PO BID 04/22/15 [History] Cholecalciferol (Vitamin D3) [Vitamin D3] 4,000 unit PO HS 02/28/17 [History] Letrozole 2.5 mg PO HS 02/28/17 [History] Lisinopril [Prinivil] 40 mg PO HS 02/28/17 [History] Potassium Chloride ER [K-Dur 20] 20 meq PO HS 02/28/17 [History] Rivaroxaban [Xarelto] 20 mg PO HS 02/28/17 [History] traMADol HCl [Ultram] 50 - 100 mg PO Q8H PRN 02/28/17 [History] cloNIDine HCL [Catapres] 0.1 mg PO BID 04/03/17 [History] Follow up Appointment(s)/Referral(s): Williams Schmid MD [Primary Care Provider] - 1 Week (Office closed, please call for appointment.) Keo Rivera MD [STAFF PHYSICIAN] - 06/17/17 8:00 am Patient Instructions/Handouts: Influenza (DC) Activity/Diet/Wound Care/Special Instructions: Cardiac diet Activity as tolerated 10 mg of prednisone daily for 7 days. One last dose of Tamiflu, tonight, provided by nursing. Discharge Disposition: HOME WITH HOME HEALTH SERVICES
== END 2017-04-08 15:42 | disposition home health service (06) | DRG 194 ==
LOC: EC 19:33 → 4MS4W 21:51
PROVIDERS: ADMIT Family Medicine; ATTEND Family Medicine
DX: J10.1 Influenza due to other identified influenza virus with other respiratory manifestations (principal); N17.9 Acute kidney failure, unspecified; I48.0 Paroxysmal atrial fibrillation; E87.5 Hyperkalemia; E66.01 Morbid (severe) obesity due to excess calories; J44.0 Chronic obstructive pulmonary disease with (acute) lower respiratory infection; Z86.74 Personal history of sudden cardiac arrest; D63.8 Anemia in other chronic diseases classified elsewhere; E86.0 Dehydration; S42.302A Unspecified fracture of shaft of humerus, left arm, initial encounter for closed fracture; J44.1 Chronic obstructive pulmonary disease with (acute) exacerbation; S82.892A Other fracture of left lower leg, initial encounter for closed fracture; E78.5 Hyperlipidemia, unspecified; G47.33 Obstructive sleep apnea (adult) (pediatric); I10 Essential (primary) hypertension; R73.9 Hyperglycemia, unspecified; T38.0X5A Adverse effect of glucocorticoids and synthetic analogues, initial encounter; M79.7 Fibromyalgia; R29.6 Repeated falls; M50.10 Cervical disc disorder with radiculopathy, unspecified cervical region; M19.90 Unspecified osteoarthritis, unspecified site; N20.0 Calculus of kidney; M35.3 Polymyalgia rheumatica; M79.602 Pain in left arm; M79.601 Pain in right arm; K21.9 Gastro-esophageal reflux disease without esophagitis; Z68.37 Body mass index [BMI] 37.0-37.9, adult; Z88.6 Allergy status to analgesic agent; Z88.0 Allergy status to penicillin; Z88.8 Allergy status to other drugs, medicaments and biological substances; Z79.01 Long term (current) use of anticoagulants; Z86.73 Personal history of transient ischemic attack (TIA), and cerebral infarction without residual deficits; Z79.899 Other long term (current) drug therapy; Z80.7 Family history of other malignant neoplasms of lymphoid, hematopoietic and related tissues; Z86.718 Personal history of other venous thrombosis and embolism; Z90.89 Acquired absence of other organs; Z90.49 Acquired absence of other specified parts of digestive tract; Z90.710 Acquired absence of both cervix and uterus; Z98.51 Tubal ligation status; Z96.651 Presence of right artificial knee joint; Z87.01 Personal history of pneumonia (recurrent); Z87.440 Personal history of urinary (tract) infections; Z85.3 Personal history of malignant neoplasm of breast; Z92.21 Personal history of antineoplastic chemotherapy; Z92.3 Personal history of irradiation; W19.XXXA Unspecified fall, initial encounter; Z85.72 Personal history of non-Hodgkin lymphomas; Z91.81 History of falling; Z95.5 Presence of coronary angioplasty implant and graft
CPT/HCPCS: 36415; 71046; 71260; 80048; 80053; 82550; 82553; 82728; 82803; 83036; 83540; 83550; 83605; 83735; 83880; 84466; 84484; 85025; 85027; 85045; 85610; 85652; 85730; 87040; 87502; 93005; 94640; 94760; 96374; 96375; 99284

== ENCOUNTER 2017-08-31 11:47 | Inpatient (IN) | payer MEDICARE, OTHER ==
[2017-08-31] MEDS ORDERED: VANCOMYCIN IV PER PHARMACY 1 EACH MISC MISCELLANE PRN ×2 (13:05)
[2017-08-31] MEDS ORDERED: ACETAMINOPHEN TAB 325 MG TAB PO PRN (13:07)
[2017-08-31] MEDS ORDERED: ALBUTEROL NEBULIZED 2.5 MG/3 ML INHALATION PRN (13:17)
[2017-08-31] MEDS ORDERED: ONDANSETRON 4 MG/2 ML VIAL IVP PRN (13:17)
[2017-08-31] MEDS ORDERED: VANCOMYCIN 2,000 MG in SODIUM CHLORIDE 0.9% 500 ML IVPB STA (13:56)
[2017-08-31] MEDS: traMADol 50 MG TAB PO PRN ×3 (14:24→22:27)
[2017-08-31 15:11] LABS: Basophils % (A) 0 %; Eosinophils % (A) 1 %; HCT 35.4 % (34.0-46.0); HGB 12.1 gm/dL (11.4-16.0); Lymphocytes # (A) 0.7 k/uL (1.0-4.8); Lymphocytes % (A) 17 %; MCH 30.6 pg (25.0-35.0); MCHC 34.1 g/dL (31.0-37.0); MCV 89.7 fL (80.0-100.0); Mean Platelet Volume 8.6; Monocytes # (A) 0.4 k/uL (0-1.0); Monocytes % (A) 9 %; Neutrophils # (A) 3.1 k/uL (1.3-7.7); Neutrophils % (A) 72 %; Platelet Count 126 k/uL (150-450); RBC 3.95 m/uL (3.80-5.40); RDW 13.5 % (11.5-15.5); WBC 4.3 k/uL (3.8-10.6)
[2017-08-31 15:32] LABS: Calcium 9.6 mg/dL (8.4-10.2); Potassium 4.5 mmol/L (3.5-5.1); Total Bilirubin 0.4 mg/dL (0.2-1.3); Total Protein 6.3 g/dL (6.3-8.2)
--- NOTE | 2017-08-31 17:42 | HP ---
HISTORY AND PHYSICAL CHIEF COMPLAINT: "Just not feeling well." This is a 67-year-old white female who walked into my office today, needed to be seen; she said she was just not feeling well. On question-taking from my medical science liaison, she said she just has not felt well, she has had a borderline temperature elevation, has been a little bit warm. She stated she had no cough, no shortness of breath, no sore throat, no generalized pain. After that evaluation, I came in and asked her again if she had any problems, and she basically stated no GI, no , no cough, no respiratory problems, no cardiopulmonary problems. She stated she had no rashes. She just felt hot. At that period of time a physical examination was completed. Urinalysis was completed and chest x-ray was completed, which was negative. Again I returned to see and talk to her. She said, "No, I just feel hot and I do not feel good." I said, "Are we sure we have no rashes; nothing?" So I did some inspection of her legs; it was negative. I did some inspection of her back, as I was suspecting her back, and did a good abdominal exam that was negative. She said, "Oh, by the way, my left breast is warm." On inspection of her left breast, it was red and indurated throughout. When I asked why she did not offer this information, she said did not think it was important. She said, "Oh, I just mentioned it while I was here to your girl earlier." Again I brought my medical science liaison in and we talked about it and she said under no circumstances, in front of the patient, did she ever mention that she was having any problems with her left breast. We also found out she has had multiple lesions removed which were cancerous; 14 or 15 lymph nodes removed from that area. An incision was seen. When asked when her last mammogram and followup with Dr. Rivera were, she said she refused to have a mammogram since her initial cancer because it is too painful. At this time she was placed in the hospital. Consultation with Infectious Disease. She has a past medical history of being in the hospital in 02/2017. At that time, she had intractable shoulder pain but a history of no trauma. Her son-in-law came forward and said that was not true; she actually flipped over upside down on a walker and landed on both shoulders, and at that time we found a fracture of the shoulder. PAST MEDICAL HISTORY: 1. COPD. 2. Fibromyalgia. 3. GE reflux. 4. Previous DVT. 5. Asthma. 6. Hyperlipidemia. 7. Hypertension. 8. Osteoarthritis. 9. Sleep apnea. 10.Intermittent atrial fibrillation. 11.Previous history of TIA in 2016 after experiencing numbness in her left face which resolved. 12.Fracture of the left ankle, for which she has used crutches, and was immobile in 2016. 13.Left breast cancer with surgery and radiation 20 years ago. 14.History of non-Hodgkin's lymphoma, at which time she had lymph node removed and also chemotherapy. 15.Urinary tract infections. 16.Osteoarthritis. She does see Dr. Rivera on a regular basis and also Dr. Gray for her COPD. SURGICAL HISTORY: 1. Adenoidectomy. 2. Appendectomy. 3. Bowel resection for questionable etiology. 4. Breast surgery. 5. Cholecystectomy. 6. Hysterectomy. 7. Joint replacement. 8. Orthopedic surgery. 9. Tonsillectomy. 10.Tubal ligation. 11.She has also had a lumpectomy for her breast surgery on the left with sentinel node biopsies and removal. 12.Abscess in the abdomen after hysterectomy. 13.Previous colonoscopies. 14.She has also had a NAE approximately 6 years ago post surgery for her gallbladder. She had an area of respiratory arrest. After recovery from the OR, she went to ICU. She was taken care by Dr. Gray and felt to have a reaction to possible anesthesia; not sure if it was the amount or kind. FAMILY HISTORY: Cancer and pulmonary emboli. She said she has a brother who from a blood clot and not sure if it was a PE. There is also a family history of non-Hodgkin's lymphoma. MEDICATIONS: 1. Celebrex 1 twice a day. 2. Amlodipine 5 daily. 3. Metoprolol 25 daily. 4. Letrozole 2.5 daily. 5. Crestor 5 mg daily. 6. Ranitidine 150 b.i.d. 7. Multiple vitamin. 8. Aspirin 325 daily. 9. Toprol XL 25 twice a day. 10.Updrafts b.i.d. to q.i.d. 11.Lisinopril 40 mg at bedtime. 12.Magnesium oxide 500 daily. 13.K-Dur 20 daily. 14.Xarelto 20 mg at supper time. 15.Clonidine 0.3 at bedtime. 16.Tramadol p.r.n. pain. ALLERGIES: 1. SIMVASTATIN. 2. CODEINE. 3. PENICILLIN. SOCIAL HISTORY: Nonsmoker, nondrinker. REVIEW OF SYSTEMS: EYES: She says she sees well with glasses. ENT: Dry mouth. NECK: no problems. CHEST: No cough. No shortness of breath. CARDIAC: No palpitations. No chest pain. GI: No hematemesis, melena or hematochezia. : Negative. INTEGUMENTARY: Left breast is warm with rash and pain. VASCULAR: Just swelling in her legs of unknown etiology. NEUROMUSCULAR: Just weakness in her shoulders for severe arthritis with possibility of surgery with Orthopedics. PHYSICAL EXAMINATION: Blood pressure 138/80, heart rate 100, temperature 99.8, oxygen saturation 95% on room air. EYES: Pupils are equal, round, reactive to light and accommodation. ENT showed tympanic membranes that appear to be negative. NECK: Supple with a midline trachea. CHEST: Essentially clear to auscultation. HEART: Sinus rhythm. No murmur. ABDOMEN: Soft, nontender with no organomegaly. Left breast examination done in front of my medical science liaison shows a very red, indurated breast with an inverted nipple. Tenderness to palpation. There is an incision where 15 sentinel nerves were removed. Right breast on inspection and palpation was negative. LOWER EXTREMITIES: Swelling throughout from the knees down with some varicosities. There is some arthritis seen in the knees and in the ankles. Range of motion of the shoulders is severely decreased due to severe arthritis. LAB WORK: Waiting for the results. Urine is within normal limits. A chest x-ray is negative. ASSESSMENT: 1. Cellulitis of the left breast in view of no lymph nodes protection in the left axilla. 2. Rule out bacteremia versus early sepsis. 3. Status post non-Hodgkin's lymphoma. 4. Previous history of breast cancer in the left breast. 5. Hypertension. 6. Gastroesophageal reflux. 7. Severe arthritis of the shoulders. 8. Atrial fibrillation, now on Xarelto. 9. Generalized osteoarthritis. PLAN: At this period of time we will continue patient's same medications accordingly. We are going to add IV antibiotics. Dr. Regalado is consulted. Blood cultures. Consultation with Dr. Rivera of the oncological point of view. Patient's prognosis is very guarded. Talked with Dr. Freeman, core blower, Internal Medicine, who is covering me for the next several days. Please refer to my orders. MMODL / IJN: [id number] /
[2017-08-31 18:05] LABS: Erythrocyte Sedimentation Rate 49 mm/hr (0-20)
[2017-08-31] MEDS ORDERED: LORazepam 2 MG/ML INJ IM STA (19:21)
[2017-08-31] MEDS: LISINOPRIL 20 MG TAB PO SCH (20:38)
[2017-08-31] MEDS: POTASSIUM CHLORIDE ER 20 MEQ TAB.ER PO SCH (20:38)
[2017-08-31] MEDS: amLODIPine 5 MG TAB PO SCH (20:39)
[2017-08-31] MEDS: FAMOTIDINE 20 MG TAB PO SCH (20:39)
[2017-08-31] MEDS: MULTIVITAMINS, THERA 1 EACH TAB PO SCH (20:39)
[2017-08-31] MEDS: METOPROLOL SUCCINATE (ER) 25 MG TAB.ER.24H PO SCH (20:39)
[2017-08-31] MEDS: LETROZOLE 2.5 MG TAB PO SCH (20:39)
[2017-08-31] MEDS: RIVAROXABAN 20 MG TAB PO SCH (20:40)
[2017-08-31] MEDS: ceFAZolin IN SWFI 2 GM/20 ML SYRINGE IVP SCH ×2 (21:41)
[2017-08-31] MEDS: SODIUM CHLORIDE 0.9% 1,000 ML IV SCH (22:50)
--- NOTE | 2017-09-01 04:18 | CONS ---
CONSULTATION DATE OF SERVICE: 08/31/2017 REASON FOR CONSULTATION: Left breast cellulitis. HISTORY OF PRESENT ILLNESS: The patient is a 67 -year-old female, who presented to her primary care physician office this morning for evaluation of not feeling well and being rundown. Her symptoms have been going on since the weekend that is about 3-4 days prior to presentation to his office feeling weak and tired and no energy and start having a fever with rigors and chills. She did have a fever of 101 degrees Fahrenheit at home. The patient denies having any headache or any URI symptoms. No chest pain. No shortness of breath or cough. No abdominal pain. No nausea, vomiting, diarrhea. Subsequently noticed to have a left breast swelling and redness which apparently has been going on for about 3-4 days now. Subsequently, she has been admitted hospital directly for left breast cellulitis. Started on vancomycin because of PENICILLIN ALLERGY. Infectious Disease was consulted for further recommendations regarding antibiotic therapy. The patient did have discomfort in the left breast more of a dull aching pain 2 to 3 out of 10, and no radiation. Currently, no skin breakdown or any drainage. REVIEW OF SYSTEMS: CONSTITUTIONAL: Positive for weakness along with the fever. Eyes: No complaint. ENT: No complaint. Respiratory: No complaint. Cardiovascular: No complaint. Genitourinary: No complaint. Gastrointestinal: No complaint. Musculoskeletal no complaint. ENT as per HPI. Psychological: No complaint. Endocrine: No complaint. Neurologic: No complaint. PAST MEDICAL HISTORY: Significant for COPD, fibromyalgia, gastroesophageal reflux disease, DVT, asthma, hyperlipidemia, hypertension, osteoarthritis, sleep apnea, atrial fibrillation, TIA, left ankle fracture, left breast cancer, non-Hodgkin's lymphoma, UTI and osteoarthritis. PAST SURGICAL HISTORY: Bowel resection, left breast surgery, hysterectomy, tonsillectomy, tubal ligation, hysterectomy, abdominal abscess drainage, colonoscopy, NAE. FAMILY HISTORY: Family history positive for cancer, pulmonary emboli. SOCIAL HISTORY: Denies smoking, drinking or drug use. ALLERGIES: TO SIMVASTATIN, CODEINE, PENICILLIN, PENICILLIN ALLERGY WITH A RASH. NO HISTORY OF ANAPHYLAXIS. MEDICATION: Medications include the patient is currently on Tylenol, Ventolin, Norvasc, Catapres, Pepcid, Humira, Zestril, Mobic, Toprol-XL, Theragran, , K-Dur, Xarelto, and Rocephin. EXAMINATION: Blood pressure is 139/53 with a pulse of 81, temperature 98.7, she is 98% on room air. General description is a middle-aged female up in the bed in no distress. No tachypnea or accessory muscles of respiration use. HEENT: Shows no pallor or scleral icterus. Oral mucosal membranes are moist. No pharyngeal erythema or thrush. Neck trachea central. No thyromegaly. Lungs unlabored breathing. Clear to auscultation anteriorly. No wheeze or crackles. Heart S1, S2. Regular rate and rhythm. ABDOMEN: Soft, no tenderness. No guarding or rigidity. Extremities: No edema of the feet. Examination of left breast in the presence of RN did show left breast swollen and red, slightly warm to touch. No fluctuation or induration was noticed. Neurological: Patient is awake, alert, oriented x3. Mood and affect normal. LABS: Hemoglobin is 12.9, white count 4.3 with a BUN of 16, creatinine 0.90. Electrolytes have been normal. Liver enzymes are normal. Blood culture obtained, currently pending. DIAGNOSTIC IMPRESSION/PLAN: 1. Patient with acute left breast cellulitis. The patient did have diffuse swelling and redness and possible component of of the breast area pointing towards a streptococcal cellulitis. 2. Patient do have PENICILLIN ALLERGIES limiting the number of antibiotics that are safe to use. PLAN: 1. Discontinue Rocephin. 2. Start the patient on cefazolin 2 g q.8 hours. 3. Will obtain ultrasound of the breast area to make sure no evidence of any abscess. 4. Nnamdi the area of redness. 5. We will follow up on the clinical condition and culture to further adjust medication if needed. Thank you for this consultation. We will follow this patient along with you. MMODL / IJN: [id number] /
[2017-09-01] MEDS: SODIUM CHLORIDE 0.9% 1,000 ML IV SCH ×3 (06:24→23:26)
[2017-09-01] MEDS: traMADol 50 MG TAB PO PRN ×4 (06:25→22:54)
[2017-09-01 07:28] LABS: Basophils % (A) 0 %; Eosinophils # (A) 0.1 k/uL (0-0.7); Eosinophils % (A) 2 %; HCT 35.2 % (34.0-46.0); HGB 11.8 gm/dL (11.4-16.0); Lymphocytes # (A) 0.9 k/uL (1.0-4.8); Lymphocytes % (A) 28 %; MCH 30.7 pg (25.0-35.0); MCHC 33.4 g/dL (31.0-37.0); MCV 91.8 fL (80.0-100.0); Mean Platelet Volume 9.4; Monocytes # (A) 0.4 k/uL (0-1.0); Monocytes % (A) 13 %; Neutrophils # (A) 1.8 k/uL (1.3-7.7); Neutrophils % (A) 55 %; Platelet Count 103 k/uL (150-450); RBC 3.83 m/uL (3.80-5.40); RDW 13.8 % (11.5-15.5); WBC 3.3 k/uL (3.8-10.6)
[2017-09-01] MEDS: amLODIPine 5 MG TAB PO SCH ×2 (07:56→20:52)
[2017-09-01] MEDS: MELOXICAM 7.5 MG TAB PO SCH (07:56)
[2017-09-01] MEDS: cloNIDine HCL 0.1 MG TAB PO SCH (07:56)
[2017-09-01] MEDS: FAMOTIDINE 20 MG TAB PO SCH ×2 (07:56→20:52)
[2017-09-01] MEDS: LISINOPRIL 20 MG TAB PO SCH ×2 (07:57→20:52)
[2017-09-01] MEDS: METOPROLOL SUCCINATE (ER) 25 MG TAB.ER.24H PO SCH ×2 (07:57→20:52)
[2017-09-01] MEDS: ceFAZolin IN SWFI 2 GM/20 ML SYRINGE IVP SCH ×3 (07:57→23:27)
[2017-09-01] MEDS: NYSTATIN 100,000 UNIT/GM POWD 15 GM TOPICAL SCH ×2 (08:00→20:55)
[2017-09-01 08:27] LABS: Albumin 3.6 g/dL (3.5-5.0); Calcium 9.4 mg/dL (8.4-10.2); Potassium 4.7 mmol/L (3.5-5.1); Total Bilirubin 0.4 mg/dL (0.2-1.3); Total Protein 5.9 g/dL (6.3-8.2)
[2017-09-01] MEDS ORDERED: cefTRIAXone IN SWFI 1,000 MG/10 ML SYRINGE IVP SCH (09:00)
--- NOTE | 2017-09-01 11:08 | USB ---
Reason for exam: clinical finding. History: Patient is postmenopausal and has history of breast cancer at age 64. Malignant US breast localization LT, April 24, 2015. Malignant US biopsy breast VAD LT of the left breast, March 04, 2015. US Breast LT Left complete breast ultrasound includes all four quadrants, the retroareolar region and axilla. Finding demonstrates elongated hypoechoic region at post surgical site. Breast tissue difficult to penetrate. No sonographic evidence of abscess. ASSESSMENT: Benign, BI-RAD 2 RECOMMENDATION: Routine screening mammogram of both breasts. Patient is due for mammography.
[2017-09-01 13:17] VITALS: BMI 40.0
--- NOTE | 2017-09-01 14:43 | P.PN ---
Subjective Progress Note Date: 09/01/17 (Patient seen eval examined while covering for Dr. Schmid) Principal diagnosis: Left breast cellulitis, early sepsis, non-Hodgkin's lymphoma, breast cancer left , hypertension, GERD, he generative joint disease osteoarthritis, chronic atrial fibrillation on anticoagulation, degenerative joint disease and osteoarthritis 09/01/2017, patient seen eval examined during the rounds while covering for Dr. Schmid patient's swelling and erythema and edema on the superior lateral aspect of the breast and shoulder has improved significantly remains on broad-spectrum antibiotics ID service is following she remains afebrile her labs and medications reviewed ultrasound of the left breast reviewed as well no evidence of abscesses seen, patient is tolerating cefazolin very well Objective - Vital Signs Vital signs: Vital Signs Temp 98.9 F 09/01/17 06:02 Pulse 70 09/01/17 08:00 Resp 20 09/01/17 08:00 BP 138/64 09/01/17 06:02 Pulse Ox 97 09/01/17 06:02 Intake & Output 08/31/17 09/01/17 09/01/17 18:59 06:59 18:59 Intake Total 525 Balance 525 Weight 99.337 kg 99.337 kg Intake: Intake, IV Titration 525 Amount Sodium Chloride 0.9% 1, 525 000 ml @ 75 mls/hr IV . [id number] [facility] Rx#:[id number] Other: Voiding Method Toilet Toilet Toilet # Voids 2 - Constitutional General appearance: Present: morbidly obese, no acute distress - EENT Eyes: Present: EOMI, PERRLA, poor dentition, normal appearance Ears: bilateral: normal - Neck Neck: Present: normal ROM Carotids: bilateral: upstroke normal, bruit absent Thyroid: bilateral: normal size - Respiratory Respiratory: bilateral: CTA - Cardiovascular Rhythm: irregularly irregular Heart sounds: normal: S1, S2 - Gastrointestinal General gastrointestinal: Present: decreased bowel sounds, distended, soft - Integumentary Integumentary Comment(s): Erythema and edema on the apical lateral aspect of the breast as well as a shoulder and upper arm as per marking appears to have improved compared to previous extension confirmed by the patient as well Integumentary: Present: cellulitis - Neurologic Neurologic: Present: CNII-XII intact - Musculoskeletal Musculoskeletal: Present: gait normal, generalized weakness, strength equal bilaterally - Psychiatric Psychiatric: Present: A&O x's 3, appropriate affect, intact judgment & insight - Labs CBC & Chem 7: 09/01/17 06:59 09/01/17 06:59 Labs: Abnormal Lab Results - Last 24 Hours (Table) 08/31/17 09/01/17 09/01/17 Range/Units 14:53 06:59 06:59 WBC 3.3 L (3.8-10.6) k/uL Plt Count 126 L 103 L (150-450) k/uL Lymphocytes # 0.7 L 0.9 L (1.0-4.8) k/uL ESR 49 H (0-20) mm/hr Total Protein 5.9 L (6.3-8.2) g/dL Assessment and Plan Assessment: Left breast cellulitis with extension into the left shoulder area and left arm superficial no evidence of abscesses seen Chronic atrial fibrillation on anticoagulation Non-Hodgkin's lymphoma Hypertension GERD Degenerative joint disease osteoarthritis of shoulder and other joints History of breast cancer on the left side Plan: Continue current home medications Continue deep breathing exercise Increase activity as tolerated Broad-spectrum antibiotics with IV cefazolin tolerating well Further recommendations pending awaiting recommendations from infectious disease if a short-term or long-term antibiotic regime is to be needed Time with Patient: Greater than 30
--- NOTE | 2017-09-01 17:02 | P.CONS ---
History of Present Illness - Reason for Consult Consult date: 09/01/17 history of breast cancer Requesting physician: Williams Schmid - Chief Complaint left breast cellulitis - History of Present Illness Ms. Clemente is a very pleasant female pt of Dr. Rivera with a history of DLBCL diagnosed in 1998, it was in the bowel, treated with only one and half cycles of chemotherapy by Dr Garza, pt opted to stop. She did well until February 2015,she had a palpable left breast mass, mammogram and US revealed 1.8cm mass at 8:00 o'clock left breast, core biopsy was positive for invasive carcinoma, ER+,ME-, HER2 negative by FISH, treated with lumpectomy and axillary node resection on 04/29/15, path showed 2 foci of invasive carcinoma nodes positive for macrometastasis, OncotypeDx recurrence score was 18 and the patient decided to proceed with radiation and endocrine therapy. completed adjuvant radiation therapy 07/28/15, started arimidex in July 2015 then switched to femara. She did well overall. She had TIA in 04/30, placed on Xarelto for a- fib 06/28, she has followed up with Dr. Rivera as directed, last seen in June. Pt was seen by Dr. Schmid in his office and was sent to hospital for work up and treatment of left breast/upper arm cellulitis. Pt states she had pain, warmth and redness that started about 3-4 days ago, persistent and progressed, she thinks she had a fever 101+F, denied any other c/o on a 10 point ROS, she feels a little better since admission. Review of Systems 10 point ROS as stated in in HPI Past Medical History Past Medical History: Atrial Fibrillation, Asthma, Cancer, COPD, Deep Vein Thrombosis (DVT), Fibromyalgia, GERD/Reflux, Hyperlipidemia, Hypertension, Osteoarthritis (OA), Pneumonia, Sleep Apnea/CPAP/BIPAP Additional Past Medical History / Comment(s): Morbid obesity, cardiac arrest with past surgery/intubation, bronchial asthma, paroxysmal atrial fibrillation, obstructive sleep apnea with CPAP use, degenerative arthritis multiple joints, history of fall with L ankle/L humerus fracture, left-sided breast cancer with previous lumpectomy radiation therapy, history of non-Hodgkin's lymphoma 20 years ago requiring a bowel resection d/t mass followed by systemic chemotherapy , remote history of blood clot "behind my heart" but pt states it is gone now, bilateral cataracts, 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 Past Anesthesia/Blood Transfusion Reactions: Previous Problems w/ Anesthesia, Postoperative Nausea & Vomiting (PONV) Additional Past Anesthesia/Blood Transfusion Reaction / Comm: States she had a cardiac arrest with last intubation 6 yrs. ago-needs fibro optic intubation. Past Psychological History: Unable to Obtain Smoking Status: Never smoker Past Alcohol Use History: None Reported Past Drug Use History: None Reported - Past Family History Brother(s) Family Medical History: Cancer, Pulmonary Embolus Additional Family Medical History / Comment(s): One brother with non-hodgin's lymphoma. Another brother from a bld. clot. not sure if it was a PE. Sister(s) Family Medical History: Cancer Additional Family Medical History / Comment(s): Non-Hodgkin's Lymphoma Mother Family Medical History: No Reported History Additional Family Medical History / Comment(s): Mother was healthy and lived to be 94 yrs. Father History Unknown: Yes Additional Family Medical History / Comment(s): Father drowned as a young man. Medications and Allergies Home Medications Medication Instructions Recorded Confirmed Type Albuterol Nebulized [Ventolin 2.5 mg INHALATION RT-QID PRN 04/22/15 08/31/17 History Nebulized] Celecoxib [CeleBREX] 200 mg PO BID 04/22/15 08/31/17 History Metoprolol Succinate [Toprol XL] 25 mg PO BID 04/22/15 08/31/17 History Multivitamins, Thera [Multivitamin] 1 tab PO HS 04/22/15 08/31/17 History Ranitidine HCl [Zantac] 150 mg PO DAILY 04/22/15 08/31/17 History amLODIPine [Norvasc] 5 mg PO BID 04/22/15 08/31/17 History Cholecalciferol (Vitamin D3) 4,000 unit PO HS 02/28/17 08/31/17 History [Vitamin D3] Letrozole 2.5 mg PO HS 02/28/17 08/31/17 History Lisinopril [Prinivil] 20 mg PO BID 02/28/17 08/31/17 History Potassium Chloride ER [K-Dur 20] 20 meq PO HS 02/28/17 08/31/17 History Rivaroxaban [Xarelto] 20 mg PO HS 02/28/17 08/31/17 History traMADol HCl [Ultram] 50 - 100 mg PO Q8H PRN 02/28/17 08/31/17 History cloNIDine HCL [Catapres] 0.3 mg PO DAILY 04/03/17 08/31/17 History Loratadine [Claritin] 10 mg PO DAILY 08/31/17 08/31/17 History Magnesium Oxide [Mag-Ox] 250 mg PO DAILY 08/31/17 08/31/17 History Dseeuzdb-Wzswynf-Wymarc Ophth 1 drop BOTH EYES QID 08/31/17 08/31/17 History [Neosporin Ophth Soln] Ubidecarenone [Co Q-10] 100 mg PO DAILY 08/31/17 08/31/17 History Allergies Allergy/AdvReac Type Severity Reaction Status Date / Time simvastatin [From Zocor] Allergy Unknown Verified 04/03/17 20:09 codeine AdvReac Nausea & Verified 04/03/17 20:09 Vomiting Penicillins AdvReac Nausea & Verified 04/03/17 20:09 Vomiting Physical Exam Vitals: Vital Signs Temp Pulse Resp BP Pulse Ox 09/01/17 08:00 70 20 09/01/17 06:02 98.9 F 70 20 138/64 97 08/31/17 20:35 98.7 F 81 20 139/63 98 08/31/17 16:00 18 Intake and Output 08/31/17 09/01/17 09/01/17 22:59 06:59 14:59 Other: Voiding Method Toilet Toilet # Voids 1 2 - Constitutional General appearance: cooperative, no acute distress, obese - EENT Eyes: anicteric sclerae, EOMI, normal appearance ENT: normal oropharynx - Neck Neck: no lymphadenopathy - Respiratory Respiratory: bilateral: CTA - Cardiovascular Heart sounds: normal: S1, S2 Abnormal Heart Sounds: no systolic murmur, no diastolic murmur, no rub, no S3 Gallop, no S4 Gallop, no click, no other leg Peripheral Edema: bilateral: None - Gastrointestinal General gastrointestinal: no absent bowel sounds, no decreased bowel sounds, no distended, no hepatomegaly, no hyperactive bowel sounds, normal bowel sounds, no organomegaly, no rigid, no scaphoid, soft, no splenomegaly, no tenderness, no umbilical hernia, no ventral hernia - Integumentary left breast redness, warmth, scar tissue palpable, no axillary lymph nodes, nipple discharge or breast masses palpable. Posterior aspect of left upper arm red, warm, swollen, no drainage All areas marked Integumentary: cellulitis - Neurologic Neurologic: CNII-XII intact - Musculoskeletal Musculoskeletal: strength equal bilaterally - Psychiatric Psychiatric: A&O x's 3, appropriate affect, intact judgment & insight Results CBC & Chem 7: 09/01/17 06:59 09/01/17 06:59 Labs: Abnormal Lab Results - Last 24 Hours (Table) 08/31/17 09/01/17 09/01/17 Range/Units 14:53 06:59 06:59 WBC 3.3 L (3.8-10.6) k/uL Plt Count 126 L 103 L (150-450) k/uL Lymphocytes # 0.7 L 0.9 L (1.0-4.8) k/uL ESR 49 H (0-20) mm/hr Total Protein 5.9 L (6.3-8.2) g/dL Comments: breast US report reviewed Assessment and Plan (1) Breast cancer Narrative/Plan: Left breast, s/p lumpectomy, radiation and currently on letrazole and Q 4 mo f/ u. US report reviewed, breast exam performed, no evidence to suspect recurrence at this time. Follow up exam after resolution of cellulitis. Explained to pt her increased risk for cellulitis due because of lymph node removal, she verbalized understanding. Pt will need her mammogram if she did not have it(if she agrees to do it). She will continue on every 4 mo f/u and have clinical breast exams. Agree with current plan of care and treatment per Medicine Current Visit: No Status: Chronic Priority: Medium Code(s): C50.919 - MALIGNANT NEOPLASM OF UNSP SITE OF UNSPECIFIED FEMALE BREAST SNOMED Code(s): 073394844 Plan: Doctor attests:I have performed a history and physical exam of this pt, discussed with dictator. I agree with dictated note, documented as a scribe.
[2017-09-01] MEDS: MULTIVITAMINS, THERA 1 EACH TAB PO SCH (20:52)
[2017-09-01] MEDS: RIVAROXABAN 20 MG TAB PO SCH (20:52)
[2017-09-01] MEDS: LETROZOLE 2.5 MG TAB PO SCH (20:52)
[2017-09-01] MEDS: POTASSIUM CHLORIDE ER 20 MEQ TAB.ER PO SCH (20:52)
--- NOTE | 2017-09-01 23:46 | PN ---
PROGRESS NOTE DATE OF SERVICE: 09/01/2017 REASON FOR FOLLOWUP: Left breast cellulitis. INTERVAL HISTORY: The patient is currently afebrile. She is breathing comfortably. The left breast swelling has slightly decreased. Denies having any chest pain or shortness of breath or cough. No abdominal pain or any diarrhea. PHYSICAL EXAMINATION: Blood pressure 119/66, pulse of 73, temperature 99.2. She is 98% on room air. General description is an elderly female lying in bed in no distress. RESPIRATORY SYSTEM: Unlabored breathing. Clear to auscultation anteriorly. HEART: S1, S2. Regular rate and rhythm. ABDOMEN: Soft. No tenderness. Left breast swelling has slightly decreased. LABS: Hemoglobin 11.8, white count of 3.3, BUN of 13, creatinine 0.87. Blood culture has been negative so far. Ultrasound was negative for any abscess. DIAGNOSTIC IMPRESSION AND PLAN: Patient with left breast cellulitis, likely a streptococcal disease. To continue with cefazolin 2 grams q.8 along with nystatin powder. Monitor clinical course closely. Continue with supportive care. MMODL / IJN: [id number] /
[2017-09-02] MEDS: traMADol 50 MG TAB PO PRN ×2 (06:35→14:48)
[2017-09-02 07:35] VITALS: TEMP 98.1
[2017-09-02] MEDS: ceFAZolin IN SWFI 2 GM/20 ML SYRINGE IVP SCH ×3 (08:12→17:55)
[2017-09-02] MEDS: cloNIDine HCL 0.1 MG TAB PO SCH (08:13)
[2017-09-02] MEDS: FAMOTIDINE 20 MG TAB PO SCH (08:13)
[2017-09-02] MEDS: amLODIPine 5 MG TAB PO SCH (08:13)
[2017-09-02] MEDS: MELOXICAM 7.5 MG TAB PO SCH (08:13)
[2017-09-02] MEDS: LISINOPRIL 20 MG TAB PO SCH (08:13)
[2017-09-02] MEDS: METOPROLOL SUCCINATE (ER) 25 MG TAB.ER.24H PO SCH (08:15)
[2017-09-02] MEDS: NYSTATIN 100,000 UNIT/GM POWD 15 GM TOPICAL SCH (08:15)
--- NOTE | 2017-09-02 12:31 | CDI ---
Last Revision, February 2017 Documentation Clarification Form Date: 09/02/17 From: Larissa Arroyo RN Admit Date: 08/31/2017 1:10:00 PM Patient Name: Arcelia Moya Visit Number: [id number] ATTENTION: The Clinical Documentation Specialists (CDI) and [facility] Coding Staff appreciate your assistance in clarifying documentation. Please respond to the clarification below the line at the bottom and electronically sign. The CDI & [facility] Coding staff will review the response and follow-up if needed. Please note: Queries are made part of the Legal Health Record. If you have any questions, please contact the author of this message via ITS. Dr. Williams Schmid, Documentation of COPD is located in the H&P . History/Risk Factors: COPD, fibromyalgia, GERD, DVT, asthma, hyperlipidemia, HTN , OA, sleep apnea, intermittent a fib, TIA, left breast Presented from DrCristian office for not feeling well/breast cellulitis Clinical Indicators: Vital Signs: T 98.7, P 81, R 20, 139/63, 98 % RA Treatment: Nebulizers: Ventolin Antibiotics: Rocephin IVP, Cefazolin IVP In your professional opinion, can you please clarify if the above findings and treatment signify any of the following? Acute on Chronic Obstructive Asthma Acute on chronic bronchitis Other condition, please specify Unable to determine Chronic asthma, no evidence of acute exacerbation. I am unable to add this due to H&P as Dr. Schmid dictated it through the old dictation system Please continue to document in your progress notes, under the line below and/or in the discharge summary in order to capture severity of illness and risk of mortality. Include clinical findings that support your diagnosis. MTDD
[2017-09-02] MEDS: SODIUM CHLORIDE 0.9% 1,000 ML IV SCH (13:36)
--- NOTE | 2017-09-02 14:36 | P.DS ---
Providers Date of admission: 08/31/17 13:10 Expected date of discharge: 09/02/17 (Seen and evaluated examined while covering for Dr. Schmid) Attending physician: Williams Schmid Consults: 08/31/17 13:05 Consult Physician Routine Consulting Provider: Diana Regalado Specimen Description: Consult Reason/Comments: left breast cellulitis Do you want consulting provider notified?: Yes 08/31/17 16:03 Consult Physician Routine Consulting Provider: Keo Rivera Consult Reason/Comments: Left breast infection, H/O breast CA Do you want consulting provider notified?: Yes Primary care physician: Williams Schmid Hospital Course: For details refer to the progress note as well as the detailed H&P and notes of infectious disease services, patient came into the hospital with developing cellulitis which is superficial of the left breast area as well as the left shoulder area and left upper extremity patient was evaluated by infectious disease services they recommended patient to be treated with IV cefazolin patient responded very well with therapy significant improvement is seen ultrasound was done no significant complication likely abscess was noted patient is now being discharged on oral antibiotics and continuation of home medications will follow with Dr. Schmid and Dr. Regalado from infectious disease services. 09/02/2017, patient seen eval reexamined during the rounds clinically has been doing well awake and alert care plan discussed with the medical staff as well as infectious disease services, hemodynamic status stable blood pressure slightly higher today 1 6786 respiratory rate is 16-18 heart rate and 10 she is afebrile discharged saturation 99%, physical examinations not much change from baseline Constitutional General appearance: Present: morbidly obese, no acute distress - EENT Eyes: Present: EOMI, PERRLA, poor dentition, normal appearance Ears: bilateral: normal - Neck Neck: Present: normal ROM Carotids: bilateral: upstroke normal, bruit absent Thyroid: bilateral: normal size - Respiratory Respiratory: bilateral: CTA - Cardiovascular Rhythm: irregularly irregular Heart sounds: normal: S1, S2 - Gastrointestinal General gastrointestinal: Present: decreased bowel sounds, distended, soft - Integumentary Integumentary Comment(s): Erythema and edema on the apical lateral aspect of the breast as well as a shoulder and upper arm as per marking appears to have improved compared to previous extension confirmed by the patient as well, Integumentary: Present: cellulitis - Neurologic Neurologic: Present: CNII-XII intact - Musculoskeletal Musculoskeletal: Present: gait normal, generalized weakness, strength equal bilaterally - Psychiatric Psychiatric: Present: A&O x's 3, appropriate affect, intact judgment & insight 09/01/2017, patient seen eval examined during the rounds while covering for Dr. Schmid patient's swelling and erythema and edema on the superior lateral aspect of the breast and shoulder has improved significantly remains on broad-spectrum antibiotics ID service is following she remains afebrile her labs and medications reviewed ultrasound of the left breast reviewed as well no evidence of abscesses seen, patient is tolerating cefazolin very well Final diagnosis Left breast cellulitis with extension into the left shoulder area and left arm superficial no evidence of abscesses seen Chronic atrial fibrillation on anticoagulation Non-Hodgkin's lymphoma Hypertension GERD Degenerative joint disease osteoarthritis of shoulder and other joints History of breast cancer on the left side Pertinent Studies: Ultrasound of cellulitis of left anterior thoracic wall Patient Condition at Discharge: Stable Plan - Discharge Summary Discharge Rx Participant: No New Discharge Prescriptions: New Cephalexin [Keflex] 500 mg PO Q8HR #30 cap No Action amLODIPine [Norvasc] 5 mg PO BID Celecoxib [CeleBREX] 200 mg PO BID Ranitidine HCl [Zantac] 150 mg PO DAILY Multivitamins, Thera [Multivitamin] 1 tab PO HS Metoprolol Succinate [Toprol XL] 25 mg PO BID Albuterol Nebulized [Ventolin Nebulized] 2.5 mg INHALATION RT-QID PRN PRN Reason: Shortness Of Breath Or Wheezing Cholecalciferol (Vitamin D3) [Vitamin D3] 4,000 unit PO HS Potassium Chloride ER [K-Dur 20] 20 meq PO HS Letrozole 2.5 mg PO HS Rivaroxaban [Xarelto] 20 mg PO HS traMADol HCl [Ultram] 50 - 100 mg PO Q8H PRN PRN Reason: Pain Lisinopril [Prinivil] 20 mg PO BID cloNIDine HCL [Catapres] 0.3 mg PO DAILY Ubidecarenone [Co Q-10] 100 mg PO DAILY Nfjipljx-Bkytsbq-Jyknwq Ophth [Neosporin Ophth Soln] 1 drop BOTH EYES QID Magnesium Oxide [Mag-Ox] 250 mg PO DAILY Loratadine [Claritin] 10 mg PO DAILY Discharge Medication List Albuterol Nebulized [Ventolin Nebulized] 2.5 mg INHALATION RT-QID PRN 04/22/15 [ History] Celecoxib [CeleBREX] 200 mg PO BID 04/22/15 [History] Metoprolol Succinate [Toprol XL] 25 mg PO BID 04/22/15 [History] Multivitamins, Thera [Multivitamin] 1 tab PO HS 04/22/15 [History] Ranitidine HCl [Zantac] 150 mg PO DAILY 04/22/15 [History] amLODIPine [Norvasc] 5 mg PO BID 04/22/15 [History] Cholecalciferol (Vitamin D3) [Vitamin D3] 4,000 unit PO HS 02/28/17 [History] Letrozole 2.5 mg PO HS 02/28/17 [History] Lisinopril [Prinivil] 20 mg PO BID 02/28/17 [History] Potassium Chloride ER [K-Dur 20] 20 meq PO HS 02/28/17 [History] Rivaroxaban [Xarelto] 20 mg PO HS 02/28/17 [History] traMADol HCl [Ultram] 50 - 100 mg PO Q8H PRN 02/28/17 [History] cloNIDine HCL [Catapres] 0.3 mg PO DAILY 04/03/17 [History] Loratadine [Claritin] 10 mg PO DAILY 08/31/17 [History] Magnesium Oxide [Mag-Ox] 250 mg PO DAILY 08/31/17 [History] Fvxgiggr-Rkcttoc-Mzxcag Ophth [Neosporin Ophth Soln] 1 drop BOTH EYES QID [History] Ubidecarenone [Co Q-10] 100 mg PO DAILY 08/31/17 [History] Cephalexin [Keflex] 500 mg PO Q8HR #30 cap 09/02/17 [Rx] Follow up Appointment(s)/Referral(s): Diana Regalado MD [STAFF PHYSICIAN] - 1 Week Keo Rivera MD [STAFF PHYSICIAN] - 10/24/17 1:00 pm Williams Schmid MD [Primary Care Provider] - 1 Week
--- NOTE | 2017-09-02 15:02 | PN ---
PROGRESS NOTE DATE OF SERVICE: 09/02/2017 REASON FOR FOLLOWUP: Left breast cellulitis. INTERVAL HISTORY: The patient is currently afebrile. She is feeling better, breathing comfortably. The left breast swelling and redness have improved. Denies having any chest pain, shortness of breath or cough. No abdominal pain or any diarrhea. PHYSICAL EXAMINATION: Blood pressure 167/86, pulse of 71, temperature 98.1. She is 99% on room air. General description is an elderly female up in the room in no distress. RESPIRATORY SYSTEM: Unlabored breathing. Clear to auscultation anteriorly. HEART: S1, S2. Regular rate and rhythm. ABDOMEN: Soft. No tenderness. Left breast swelling and redness have decreased. LABS: No new labs been obtained today. Blood culture has been negative. DIAGNOSTIC IMPRESSION AND PLAN: Patient with left breast cellulitis with diffuse swelling with likely streptococcal disease. Patient is currently on cefazolin. Will plan to finish therapy with oral Keflex 500 mg every 8 hours for another 7 to 10 days with close outpatient followup. Prescription was sent to the pharmacy. MMRODOLFOL / SORINN: [id number] /
[2017-09-02 16:19] VITALS: BP 110/61; PULSE 62; RESP 18
== END 2017-09-02 18:30 | disposition home or self-care (01) | DRG 872 ==
LOC: 5MS5E 13:10
PROVIDERS: ADMIT Family Medicine; ATTEND Family Medicine
DX: A41.9 Sepsis, unspecified organism (principal); Z68.41 Body mass index [BMI] 40.0-44.9, adult; L03.114 Cellulitis of left upper limb; N61.0 Mastitis without abscess; I10 Essential (primary) hypertension; C50.312 Malignant neoplasm of lower-inner quadrant of left female breast; I48.2 Chronic atrial fibrillation; J45.909 Unspecified asthma, uncomplicated; E66.01 Morbid (severe) obesity due to excess calories; M19.012 Primary osteoarthritis, left shoulder; M19.011 Primary osteoarthritis, right shoulder; M17.0 Bilateral primary osteoarthritis of knee; M19.072 Primary osteoarthritis, left ankle and foot; M19.071 Primary osteoarthritis, right ankle and foot; S82.892S Other fracture of left lower leg, sequela; K21.9 Gastro-esophageal reflux disease without esophagitis; S42.302D Unspecified fracture of shaft of humerus, left arm, subsequent encounter for fracture with routine healing; E78.5 Hyperlipidemia, unspecified; M79.7 Fibromyalgia; G47.33 Obstructive sleep apnea (adult) (pediatric); R53.1 Weakness; H26.9 Unspecified cataract; Z17.0 Estrogen receptor positive status [ER+]; Z88.5 Allergy status to narcotic agent; Z88.8 Allergy status to other drugs, medicaments and biological substances; Z79.01 Long term (current) use of anticoagulants; Z86.73 Personal history of transient ischemic attack (TIA), and cerebral infarction without residual deficits; Z88.0 Allergy status to penicillin; Z86.718 Personal history of other venous thrombosis and embolism; Z90.710 Acquired absence of both cervix and uterus; Z79.899 Other long term (current) drug therapy; Z86.74 Personal history of sudden cardiac arrest; Z80.7 Family history of other malignant neoplasms of lymphoid, hematopoietic and related tissues; Z92.21 Personal history of antineoplastic chemotherapy; Z92.3 Personal history of irradiation; Z87.440 Personal history of urinary (tract) infections; Z86.19 Personal history of other infectious and parasitic diseases; Z85.72 Personal history of non-Hodgkin lymphomas; Z98.51 Tubal ligation status; Z90.12 Acquired absence of left breast and nipple; Z79.82 Long term (current) use of aspirin; Z79.1 Long term (current) use of non-steroidal anti-inflammatories (NSAID); Z96.651 Presence of right artificial knee joint; Z91.81 History of falling; Z91.19 Patient's noncompliance with other medical treatment and regimen
CPT/HCPCS: 80053; 85025; 85652; 87040

== ENCOUNTER → 2017-10-28 | Outpatient (CLI) | payer MEDICARE, OTHER ==
--- NOTE | 2017-11-01 11:00 | MM ---
Reason for exam: additional evaluation requested from prior study. Last mammogram was performed 1 year and 9 months ago. History: Patient is postmenopausal and has history of breast cancer at age 64. Malignant US breast localization LT, April 24, 2015. Malignant US biopsy breast VAD LT of the left breast, March 04, 2015. Physical Findings: Nurse did not find any significant physical abnormalities on exam. MG 3D Diag Mammo W/Cad JAJA Bilateral CC and MLO view(s) were taken. Prior study comparison: February 09, 2016, bilateral MG 3d diag mammo w/cad JAJA. March 04, 2015, left breast MG diagnostic mammo LT wo CAD. The breast tissue is heterogeneously dense. This may lower the sensitivity of mammography. There are benign appearing bilateral calcifications. Post therapy changes on the left breast. Limited positioning due to patient pain. These results were verbally communicated with the patient and result sheet given to the patient on 10/28/17. ASSESSMENT: Benign, BI-RAD 2 RECOMMENDATION: Follow-up diagnostic mammogram of both breasts in 1 year.
== END | disposition home or self-care (01) ==
LOC: RADMAMWWP 13:05
PROVIDERS: ATTEND Internal Medicine Hematology & Oncology
DX: Z08 Encounter for follow-up examination after completed treatment for malignant neoplasm (principal); Z85.3 Personal history of malignant neoplasm of breast
CPT/HCPCS: 77066; G0279; 77062

== ENCOUNTER → 2018-12-14 | Outpatient (CLI) | payer MEDICARE, OTHER ==
[~2018-12-14] MED LIST: DENOSUMAB 60 MG/ML 1 ML SYRINGE SQ ONE
[2018-12-14 08:33] VITALS: BP 148/90; PULSE 76; RESP 18; TEMP 97.6
== END | disposition home or self-care (01) ==
LOC: PROCWHC3 08:23
PROVIDERS: ATTEND Internal Medicine Hematology & Oncology
DX: M81.0 Age-related osteoporosis without current pathological fracture (principal); Z88.0 Allergy status to penicillin; Z88.5 Allergy status to narcotic agent
CPT/HCPCS: 96372; J0897

== ENCOUNTER → 2020-06-16 | Outpatient (CLI) | payer MEDICARE, OTHER ==
[2020-06-16 17:28] LABS: T4, Free (Free Thyroxine) 1.06 ng/dL (0.78-2.19)
== END | disposition home or self-care (01) ==
LOC: LABWHC1 15:50
PROVIDERS: ATTEND Internal Medicine Interventional Cardiology
DX: E03.9 Hypothyroidism, unspecified (principal)
CPT/HCPCS: 36415; 84439; 84443

== ENCOUNTER 2022-01-04 09:56 | Day surgery (SDC) | payer MEDICARE, OTHER ==
[2021-12-31 15:00] VITALS: BMI 42.2
[2022-01-04] MEDS ORDERED: SODIUM CHLORIDE 0.9% 1,000 ML IV ONE (10:26)
[2022-01-04] MEDS ORDERED: PROPOFOL 10 MG/ML 20 ML VIAL IV ONE (12:07)
[2022-01-04] MEDS ORDERED: GLYCOPYRROLATE 0.2 MG/ML 2 ML VIAL ONE (12:07)
[2022-01-04] MEDS ORDERED: ISOPROTERENOL 250 MCG/1.25 ML SYR IV ONE (12:07)
[2022-01-04] MEDS ORDERED: fentaNYL (PF) 50 MCG/ML 2 ML AMP ONE (12:07)
[2022-01-04] MEDS ORDERED: KETAMINE 10 MG/ML 20 ML VIAL ONE (12:07)
[2022-01-04] MEDS ORDERED: diphenhydrAMINE 50 MG/ML 1 ML VIAL ONE (12:07)
[2022-01-04] MEDS ORDERED: HYDROmorphone (PF) 1 MG/ML ONE (12:07)
[2022-01-04] MEDS ORDERED: MIDAZOLAM 2 MG/2 ML VIAL ONE (12:07)
[2022-01-04] MEDS ORDERED: LIDOCAINE 1% INJ 10MG/ML (30 ML VIAL-PF) SQ ONE ×2 (12:58→15:42)
[2022-01-04] MEDS ORDERED: VANCOMYCIN 1,500 MG in SODIUM CHLORIDE 0.9% 500 ML 500 ML IVPB STA (14:08)
[2022-01-04] MEDS ORDERED: IOPAMIDOL-370 50ML BTL INJ ONE (14:52)
--- NOTE | 2022-01-04 15:16 | P.HPCAR ---
History of Present Illness This is Dr. Beasley dictating an H/P on this patient The patient was interviewed and examined IMPRESSION / ASSESSMENT: Spontaneous fast VT 200 beats a minute, detected on pacemaker interrogation Associated with presyncope History of atrial tachycardia and along postconversion pause resulting in syncope Status post dual-chamber pacemaker implantation Normal stress test preserved LV systolic function IVCD with a right bundle branch block morphology PLAN: Diagnostic EP study Look for inducible VT/VF followed by appropriate intervention HPI Patient has a history of dual-chamber pacemaker implantation following syncope associated with along postconversion pause following atrial tachycardia Subsequently and pacemaker telemetry, a long run of sustained VT that terminated spontaneously, was documented Cycle length was closed in 300 ms Symptomatic No recent syncope or chest pain Normal stress test Normal electrolytes Normal TSH of 1.5 ROS: No fever chills or rigors, no cough, phlegm or expectoration, no nausea, vomiting or diarrhea, no hematuria, dysuria, no musculoskeletal complaints, no strokes or seizures, no skin lesions. EXAMINATION: 199/91, pulse rate in the 80s Breath sounds are clear Heart sounds S1 and S2 are normal no murmurs or gallops no rub 70s warm no edema REVIEW OF LABS, ECG & MEDICAL DATA TSH 2.3 Physical Exam Vitals: Vital Signs Temp Pulse Resp BP Pulse Ox 01/04/22 10:30 97.8 F 81 16 199/91 96 Intake and Output 01/04/22 01/04/22 01/04/22 06:59 14:59 22:59 Intake Total 150 Balance 150 Intake: IV 150 Other: Weight 103.6 kg Past Medical History Past Medical History: Atrial Fibrillation, Asthma, Cancer, COPD, Deep Vein Thrombosis (DVT), Fibromyalgia, GERD/Reflux, Hyperlipidemia, Hypertension, Osteoarthritis (OA), Pneumonia, Sleep Apnea/CPAP/BIPAP Additional Past Medical History / Comment(s): Morbid obesity, cardiac arrest with past surgery/intubation, bronchial asthma, paroxysmal atrial fibrillation, obstructive sleep apnea with CPAP use, degenerative arthritis multiple joints, history of fall with L ankle/L humerus fracture, left-sided breast cancer with previous lumpectomy radiation therapy, history of non-Hodgkin's lymphoma 20 years ago requiring a bowel resection d/t mass followed by systemic chemotherapy, remote history of blood clot "behind my heart" but pt states it is gone now, bilateral cataracts, 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 CATARACT REMOVAL Past Anesthesia/Blood Transfusion Reactions: Previous Problems w/ Anesthesia, Postoperative Nausea & Vomiting (PONV) Additional Past Anesthesia/Blood Transfusion Reaction / Comment(s): States she had a cardiac arrest with last intubation 6 yrs. ago-needs fibro optic intubation. Type of Cardiac Device: Permanent Pacemaker Device Placement Date:: 06/30/21 Smoking Status: Never smoker - Past Family History Brother(s) Family Medical History: Cancer, Pulmonary Embolus Additional Family Medical History / Comment(s): One brother with non-hodgin's lymphoma. Another brother from a bld. clot. not sure if it was a PE. Sister(s) Family Medical History: Cancer Additional Family Medical History / Comment(s): Non-Hodgkin's Lymphoma Mother Family Medical History: No Reported History Additional Family Medical History / Comment(s): Mother was healthy and lived to be 94 yrs. Father History Unknown: Yes Additional Family Medical History / Comment(s): Father drowned as a young man. Physical Examination Vital Signs Temp Pulse Resp BP Pulse Ox 01/04/22 10:30 97.8 F 81 16 199/91 96 Intake and Output 01/04/22 01/04/22 01/04/22 06:59 14:59 22:59 Intake Total 150 Balance 150 Intake: IV 150 Other: Weight 103.6 kg Results Current Medications Generic Name Dose Route Start Last Admin Trade Name Freq PRN Reason Stop Dose Admin Lactated Ringer's 1,000 mls @ 20 mls/hr 01/04/22 06:19 Lactated Ringers IV 02/03/22 06:20 .Q24H ISABEL Sodium Chloride 1,000 mls @ 20 mls/hr 01/04/22 06:19 Saline 0.9% IV 02/03/22 06:20 .Q24H ISABEL Vancomycin HCl 1,500 mg/ 500 mls @ 166.667 mls/hr 01/04/22 14:08 01/04/22 14:58 Sodium Chloride IVPB 01/04/22 17:07 0 mls ONCE STA Administration Protocol Intake and Output 01/04/22 01/04/22 01/04/22 06:59 14:59 22:59 Intake Total 150 Balance 150 Intake: IV 150 Other: Weight 103.6 kg Patient Weight 01/05/22 06:59 Weight 103.6 kg
[2022-01-04] MEDS ORDERED: ceFAZolin 1,000 MG in SODIUM CHLORIDE 0.9% IRRIG BTL 250 ML IRRIGATION ONE (15:23)
--- NOTE | 2022-01-04 15:24 | P.EPPROC ---
- EP Procedure Note Electrophysiology Procedure Note: Procedure Diagnostic EP study Intracardiac echo Indication for the procedure Near sustained fast VT detected on pacemaker telemetry, 200 bpm Details Patient was brought to the EP lab in a fasting state. Written informed consent was obtained prior to the procedure. The right and left groins were prepped and draped as a protocol Diagnostic catheters placed in the heart Dual-chamber pacemaker was interrogated and then reprogrammed Excellent pacing and sensing function and normal impedances Atrial pacing percentage 54% Ventricle pacing percentage 1.3% Sinus cycle length 843 ms, SC interval 163, QRS 116 ms and QT 401 ms AH 41 ms and HV interval 59 ms RV sense to LV sense in the distal Dale sinus pole was 66 ms When RV was paced at 100 beats a minute, LV sense followed at 166 ms Sinus recovery times a 600, 540 ms were 1162, 1162 and 1031 Currently sinus recovery times were within normal limits AV node Wenckebach block 280 ms VA Wenckebach block fountain 10 ms VA ERP 600\for 40 ms Stimulation was performed for the RV apex Ventricle extra stimulation was performed upper double extrastimuli. 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 No intracardiac evidence for perforation Left upper extremity venogram was performed 15 mL IV dye injected Patent left subclavian venous system Impression Inducible ventricular fibrillation, sustained with burst stimulation Inducible nonsustained ventricular fibrillation with extra stimulation LVH on intracardiac echo with preserved systolic function Evidence of old pericarditis with fibrinous exudate in the pericardial space Plan Upgrade to a dual-chamber ICD Extract RV lead
--- NOTE | 2022-01-04 17:26 | P.EPPROC ---
- EP Procedure Note Electrophysiology Procedure Note: Procedure Left upper extremity venogram: 50 mL IV dye injected in the left arm Patent left axillary subclavian venous system as well as the innominate SVC veins Procedure details: #1 new subfascial pocket #2 Removal of a dual-chamber pacemaker generator, chronic #3 Extraction of RV pacemaker lead #4 Implantation of a new ICD lead and generator, [employer] The left pectoral area was prepped and draped as a protocol. IV vancomycin was infused The intracardiac catheter was left in the right atrium and the right ventricle to monitor the pericardial effusion during extraction of the RV pacing lead An incision was made in the left pectoral area. This was carried down to the level of the generator The dual-chamber pacemaker generator was explanted. It was subcutaneous in location Completely new subfascial pocket was made to accommodate the new ICD generator The RV lead is freed from the surrounding soft tissue and See It is unscrewed, and with counterclockwise rotation's manual traction applied and gradually removed An encircling suture, absorbable, applied around the access site Intracardiac echo during the procedure did not reveal any expansion of the pericardial effusion/ space [facility]/Chanel ICD lead was implanted. single coil active fix in the RV septum and screwed in Pacing threshold 0.5 V at 0.5 ms, R waves greater than 12 mV pacing impedance 550 ohms Chanel Optisure [id number], 58 cm Chronic Atrial lead pacing threshold 0.75 V at 0.5 ms, P waves 2.6V Allen pacing in 390 ohms Lead remained in stable position fluoroscopy Both leads were connected to the new generator, dual-chamber ICD Yanique Vera DR, [id number] Serial #[id number] ICD generator and leads placed in the subfascial pocket Tyrx pouch was placed Wound was closed in 3 layers and dressed per protocol Device is programmed to DDDR 50-120 bpm, VIP mode ON MADIT RIT programming with appropriate antitachycardia pacing cardioversion and defibrillation
[2022-01-04] MEDS ORDERED: ACETAMINOPHEN TAB 325 MG TAB PO PRN ×2 (17:30→23:00)
[2022-01-04] MEDS ORDERED: ACETAMINOPHEN IV (For NPO) 1,000 MG in EMPTY BAG 1 BAG IVPB ONE (17:30)
[2022-01-04] MEDS ORDERED: ALBUTEROL NEBULIZED 2.5 MG/3 ML INHALATION PRN (17:35)
[2022-01-04] MEDS: LACTATED RINGERS 1,000 ML IV SCH (18:36)
[2022-01-04] MEDS: SODIUM CHLORIDE 0.9% 1,000 ML IV SCH (18:37)
[2022-01-04] MEDS: carvediloL 12.5 MG TAB PO SCH (18:54)
[2022-01-04] MEDS ORDERED: ONDANSETRON 4 MG/2 ML VIAL IVP PRN (20:10)
[2022-01-04] MEDS: MAGNESIUM OXIDE 400 MG TAB PO SCH (20:18)
[2022-01-04] MEDS ORDERED: RIVAROXABAN 20 MG TAB PO SCH (21:00)
[2022-01-05] MEDS: SODIUM CHLORIDE 0.9% 1,000 ML IV SCH (05:24)
[2022-01-05] MEDS: LACTATED RINGERS 1,000 ML IV SCH (05:24)
[2022-01-05 06:49] VITALS: RESP 18; TEMP 98.3
[2022-01-05] MEDS: carvediloL 12.5 MG TAB PO SCH (08:20)
--- NOTE | 2022-01-05 08:28 | XR ---
EXAMINATION TYPE: XR chest 1V portable DATE OF EXAM: 01/05/2022 COMPARISON: Chest x-ray 04/03/2017, 03/05/2020 HISTORY: Lead placement check TECHNIQUE: Single frontal view of the chest is obtained. FINDINGS: There has been placement of a generator in the left pectoral region, there are leads in th e right atrium and right ventricle. Cardiac mediastinal silhouette is stable, heart is enlarged. Aort a is dense. There is no evident pneumothorax or sizable effusion. Question suprahilar density on the right. There are overlying leads. Bilateral shoulder arthroplasty changes are present. Loop recorder is present over the left heart. IMPRESSION: No evident complication status post pacemaker lead placement. Questionable suprahilar de nsity in the right, follow-up PA and lateral chest x-ray recommended A Yellow level critical message alert has been initiated for Abisai Beasley MD via the [employer] Critical Results System on 01/05/2022 8:25 AM. This message alert has been sent to Abisai Beasley MD via the preferences provided by the clinician for the receipt of Radiology Critical Findings. Mess age ID [id number].
[2022-01-05] MEDS: MAGNESIUM OXIDE 400 MG TAB PO SCH (08:58)
[2022-01-05] MEDS ORDERED: amLODIPine 5 MG TAB PO SCH (09:00)
[2022-01-05] MEDS ORDERED: EZETIMIBE 10 MG TAB PO SCH (09:00)
[2022-01-05] MEDS ORDERED: LOSARTAN 50 MG TAB PO SCH (09:00)
[2022-01-05] MEDS ORDERED: MONTELUKAST 10 MG TAB PO SCH (09:00)
[2022-01-05] MEDS ORDERED: PANTOPRAZOLE 40 MG TABLET PO SCH (09:00)
--- NOTE | 2022-01-05 10:36 | P.PN ---
Subjective Progress Note Date: 01/05/22 This is 71-year-old female who underwent EP study yesterday with Dr. Beasley revealing ventricular fibrillation. Patient underwent extraction of RV lead and upgrade to dual-chamber AICD. Patient was found to be hypertensive. She was changed from metoprolol to carvedilol. Her blood pressures have improved this morning. Her clonidine patch will be removed this morning as well. We will continue to monitor her blood pressures throughout the day. If her blood pressures are controlled she will be discharged home later this evening or tomorrow. Assessment Ventricular fibrillation, status post extraction of RV lead and upgrade to dual- chamber AICD Nurse practitioner note has been reviewed by physician. Signing provider agrees with the documented findings, assessment, and plan of care. Objective - Vital Signs Vital signs: Vital Signs Temp 98.3 F 01/05/22 06:48 Pulse 71 01/05/22 06:48 Resp 18 01/05/22 06:48 BP 120/73 01/05/22 08:30 Pulse Ox 93 L 01/05/22 06:48 FiO2 Intake & Output 01/04/22 01/05/22 01/05/22 18:59 06:59 18:59 Intake Total 1150 Balance 1150 Weight 103.6 kg 103.6 kg Intake: IV 1150 Other: Voiding Method Toilet # Voids 2
[2022-01-05 10:55] VITALS: PULSE 64
[2022-01-05 13:45] VITALS: BP 123/77
--- NOTE | 2022-01-05 13:49 | P.DS ---
Providers Attending physician: Abisai Beasley Primary care physician: [facility] Hospital Course: This is 71-year-old female who underwent EP study yesterday with Dr. Beasley revealing ventricular fibrillation. Patient underwent extraction of RV lead and upgrade to dual-chamber AICD. Patient was found to be hypertensive. She was changed from metoprolol to carvedilol. Her clonidine patch was DC as well. Her blood pressures have improved this morning. Dr. Beasley deemed she was stable for DC home today. Please see EMR for further hospital course details. Assessment Ventricular fibrillation, status post extraction of RV lead and upgrade to dual- chamber AICD Nurse practitioner note has been reviewed by physician. Signing provider agrees with the documented findings, assessment, and plan of care. Plan - Discharge Summary Discharge Rx Participant: Yes New Discharge Prescriptions: New carvediloL [Coreg] 25 mg PO BID #180 tablet Discontinued cloNIDine 0.2 MG/24HR PATCH [Catapres-TTS] 1 patch TRANSDERM WE Metoprolol Tartrate [Lopressor] 100 mg PO BID No Action amLODIPine [Norvasc] 5 mg PO DAILY Celecoxib [CeleBREX] 200 mg PO BID Multivitamins, Thera [Multivitamin] 1 tab PO HS Albuterol Nebulized [Ventolin Nebulized] 2.5 mg INHALATION RT-QID PRN PRN Reason: Shortness Of Breath Or Wheezing Letrozole 2.5 mg PO HS Rivaroxaban [Xarelto] 20 mg PO HS Loratadine [Claritin] 10 mg PO DAILY Calcium Carbonate/Vitamin D3 [Calcium 600-Vit D3 400 Tablet] 1 tab PO BID Ezetimibe [Zetia] 10 mg PO DAILY Fluticasone Nasal Clinton [Flonase Nasal Clinton] 2 spray EA NOSTRIL DAILY Magnesium Oxide 400 mg PO BID Montelukast [Singulair] 10 mg PO DAILY Losartan Potassium 100 mg PO DAILY Omeprazole 40 mg PO DAILY Discharge Medication List Albuterol Nebulized [Ventolin Nebulized] 2.5 mg INHALATION RT-QID PRN 04/22/15 [History] Celecoxib [CeleBREX] 200 mg PO BID 04/22/15 [History] Multivitamins, Thera [Multivitamin] 1 tab PO HS 04/22/15 [History] amLODIPine [Norvasc] 5 mg PO DAILY 04/22/15 [History] Letrozole 2.5 mg PO HS 02/28/17 [History] Rivaroxaban [Xarelto] 20 mg PO HS 02/28/17 [History] Loratadine [Claritin] 10 mg PO DAILY 08/31/17 [History] Calcium Carbonate/Vitamin D3 [Calcium 600-Vit D3 400 Tablet] 1 tab PO BID 12/14/18 [History] Ezetimibe [Zetia] 10 mg PO DAILY 12/31/21 [History] Fluticasone Nasal [place] [Flonase Nasal Clinton] 2 spray EA NOSTRIL DAILY 12/31/21 [History] Losartan Potassium 100 mg PO DAILY 12/31/21 [History] Magnesium Oxide 400 mg PO BID 12/31/21 [History] Montelukast [Singulair] 10 mg PO DAILY 12/31/21 [History] Omeprazole 40 mg PO DAILY 12/31/21 [History] carvediloL [Coreg] 25 mg PO BID #180 tablet 01/04/22 [Rx] Follow up Appointment(s)/Referral(s): True Eastman MD [STAFF PHYSICIAN] - 1 Week (Device clinic follow-up in one week along with Dr. Eastman Please arrange for both Hypertension management) Activity/Diet/Wound Care/Special Instructions: Post EP study - Ablation instructions 1. Keep access sites dry for 2 days. 2. No heavy lifting or straining for 2 days. 3. Avoid bending the hips repeatedly for 2 days. 4. You may go up and down stairs slowly Call if the following is noted 1. Bleeding, increasing swelling or pain at the access sites. 2. Increasing chest discomfort, especially upon taking a deep breath. 3. Increasing shortness of breath, at rest or with exertion. 4. Undue cough / phlegm 5. Difficulty or pain while swallowing. 6. Pain or change in color in the extremities. 7. Fever, chills, rigors. 8. Increasing headache or neurologic symptoms. 9. Dizziness, fainting, palpitations PATIENT EDUCATION MATERIAL Instructions following a heart rhythm device implant. 1. Keep dressing DRY for 5 DAYS. You may cover the area with Saran or Cling Wrap, prior to a shower. 2. The dressing will be removed in the Device Clinic at [facility]. Absorbable sutures were used to close the wound. 3. Avoid raising the left arm above the shoulder level. 4 week restriction 4. Avoid arm movements, like backscratching, rubbing the head, or pulling on a cord. 4 weeks restriction 5. Gentle range of motion movements of the shoulder, closest to the incision should be performed to avoid a frozen shoulder. (Pendulum exercises of the shoulder) 6. The opposite arm may be used freely. 7. Avoid driving for 7 days. 8. Avoid activities such as golfing, swimming, weed whacking, lifting more than 10 pounds weight, bowling, gymnastics and weight training/lifting. (6 weeks restriction) 9. Activities such as wood chopping with an axe, pull-ups in the gymnasium, power lifting, arc-welding, being close to home induction cooktops will always be a problem. 10. Arm sling is only a reminder not to raise the arm above the head. You do not need to keep the arm completely immobilized. Your free to move the arm and use it and for normal activities. In case of any problems, please call [facility], [place], @ [phone], Attention: Device Clinic Device clinic follow-up in 5 days Follow-up with primary pharmacy clinical coordinator in1 week Follow-up management of hypertension Discontinue clonidine patch Start carvedilol. 25 mg twice daily Discharge Disposition: HOME SELF-CARE
== END 2022-01-05 16:17 | disposition home or self-care (01) ==
LOC: CATHEP 09:56 → 6NMEDSUR 16:58 → CATHEP 01-05 16:17
PROVIDERS: ATTEND Internal Medicine Clinical Cardiac Electrophysiology
DX: I47.20 Ventricular tachycardia, unspecified (principal); I48.0 Paroxysmal atrial fibrillation; I49.5 Sick sinus syndrome; T82.198A Other mechanical complication of other cardiac electronic device, initial encounter; R55 Syncope and collapse; Z87.898 Personal history of other specified conditions
CPT/HCPCS: 93662; 93620; 33249; 33234; 75820; 84443; 71045; C1894 ×2; C1769 ×3; C1760; C1721; C1730 ×3; C1892; C1759; C1777; J2250; J3370; J1200; J0690 ×3; J2405; J2001; J3010; J1170; J0131; J2704; Q9967; 33233; 92960

== ENCOUNTER 2022-01-28 06:40 | Day surgery (SDC) | payer MEDICARE, OTHER ==
[2022-01-26 12:17] VITALS: BMI 41.5
[~2022-01-28 06:40] MED LIST changes: +ALPRAZolam 0.25 MG TAB PO PRN; +ALPRAZolam 0.5 MG TAB PO PRN; +ASPIRIN 325 MG TAB PO STA; -DENOSUMAB 60 MG/ML 1 ML SYRINGE SQ ONE; +HEPARIN SODIUM,PORCINE 10,000 UNIT in SODIUM CHLORIDE 0.9% 1,000 ML IRRIGATION PRN; +HEPARIN SODIUM,PORCINE 2,500 UNIT in SODIUM CHLORIDE 0.9% 250 ML IRRIGATION PRN; +NITROGLYCERIN SL TABS 0.4 MG TAB SUBLINGUAL PRN; +SODIUM CHLORIDE 0.9% 1,000 ML in EMPTY BAG 1 BAG IV SCH
[2022-01-28 07:41] VITALS: RESP 18; TEMP 97.1
[2022-01-28 08:48] LABS: Basophils % (A) 0 %; Eosinophils # (A) 0.1 k/uL (0-0.7); Eosinophils % (A) 3 %; HCT 36.8 % (34.0-46.0); HGB 12.8 gm/dL (11.4-16.0); Lymphocytes # (A) 0.7 k/uL (1.0-4.8); Lymphocytes % (A) 19 %; MCH 31.5 pg (25.0-35.0); MCHC 34.9 g/dL (31.0-37.0); MCV 90.4 fL (80.0-100.0); Monocytes # (A) 0.2 k/uL (0-1.0); Monocytes % (A) 6 %; Neutrophils # (A) 2.7 k/uL (1.3-7.7); Neutrophils % (A) 69 %; RBC 4.07 m/uL (3.80-5.40); RDW 13.2 % (11.5-15.5); WBC 3.8 k/uL (3.8-10.6)
[2022-01-28 09:10] LABS: Platelet Count 80 k/uL (150-450)
[2022-01-28] MEDS ORDERED: MIDAZOLAM 2 MG/2 ML VIAL IV ONE (09:43)
[2022-01-28] MEDS ORDERED: LIDOCAINE 1% INJ 10MG/ML (30 ML VIAL-PF) SQ ONE (09:43)
[2022-01-28] MEDS ORDERED: VERAPAMIL SYRINGE (5 MG/10 ML) INTRAARTER ONE (09:45)
[2022-01-28] MEDS ORDERED: NITROGLYCERIN SL TABS 0.4 MG TAB SUBLINGUAL ONE (09:51)
[2022-01-28] MEDS ORDERED: HEPARIN SODIUM 1,000 UN/ML (10ML VL) IV ONE (09:51)
[2022-01-28] MEDS ORDERED: IOPAMIDOL-370 125ML BTL INJ ONE (10:06)
[2022-01-28] MEDS ORDERED: SODIUM CHLORIDE 0.9% 1,000 ML IV SCH (10:45)
--- NOTE | 2022-01-28 12:02 | CC ---
CARDIAC CATHETERIZATION REPORT PROCEDURE: Left heart catheterization and coronary angiography. PERFORMED BY: Dr. Robyn Eastman. Moderate conscious sedation time was 22 minutes. The patient was administered Versed. Oxygen saturation, hemodynamics, and EKG were monitored closely. CLINICAL INFORMATION: Mrs. Arcelia Moya is a 71-year-old lady with a history of non-Hodgkin's lymphoma, status post surgery and chemotherapy. She has paroxysmal atrial fibrillation on Xarelto, hypertension, hyperlipidemia, and sick sinus syndrome for which she had a permanent pacemaker that was placed in June of this year, but subsequently on her device interrogation, there were several runs of wide QRS tachycardia, and she had EP study that revealed easily inducible atrial fibrillation and therefore, she had a device upgrade with an ICD by Dr. Beasley and this was performed in January 04. Dr. Beasley felt that she may have obstructive CAD, even though stress test was negative, and given her circumstances with ventricular tachycardia and fibrillation, I recommended coronary angiography after due discussion regarding risks, benefits, and options. PROCEDURE NOTE: Under local anesthesia and strict aseptic precautions, a 6-Polish introducer was placed in the right radial artery. I used a JL3.5 and JR4 catheters and performed coronary angiography, and the same right catheter was used to check LV pressure, but LV gram was not performed. Sheath was taken out and TR band was applied as per protocol with saturation in the fingers of the right hand of 95%. The patient received 3500 units of heparin. CARDIAC CATHETERIZATION FINDINGS: The left ventricular end-diastolic pressure was 12 mmHg without any gradient across aortic valve. CORONARY ANGIOGRAPHY FINDINGS: RIGHT CORONARY ARTERY: Large dominant vessel. No significant disease, distally bifurcates into a PDA and PLV, which are relatively smaller, have minor irregularities but no significant disease is noted. LEFT MAIN CORONARY ARTERY: Short, patent vessel, bifurcates into LAD and circumflex. No significant disease. LEFT ANTERIOR DESCENDING CORONARY ARTERY: Good-caliber vessel extends along the anterior wall, gives off a good-sized diagonal branch, has minor irregularities, and after the diagonal branch at the junction of the middle and distal one-third, where the vessel becomes small and is about 2 to 2.2 mm. There is a 70% stenosis noted with good flow. The stenosis is located very distally, and beyond the stenotic segment, the amount of myocardium is not much. The diagonal branch is free of significant disease. The distal LAD at the junction of middle and distal one-third therefore has a 70% lesion. LEFT POSTERIOR CIRCUMFLEX CORONARY ARTERY: Technically, nondominant vessel. Good caliber and good distribution, gives off a good-sized obtuse marginal branch and then continues distally and also has a groove branch. No significant disease in the entire circumflex system, has minor irregularities. Left ventriculogram was not performed. FINAL IMPRESSION: This patient has a right-dominant system. Normal filling pressures. No gradient. She has no significant disease in the dominant RCA or in the nondominant good caliber, good distribution circumflex. LAD has distal disease at the junction of middle and distal one-third of 70% after which the caliber of the vessel is small and vessel curves over the inferoapical portion. The diagonal is free of significant disease. Left main is free of significant disease. RECOMMENDATIONS: Given the findings, I am recommending but we will pursue medical therapy with beta blockers and nitrates. No intervention is necessary at this time. She will continue to be on her medications for atrial fibrillation as well. She is currently on metoprolol tartrate, which she is taking at 100 mg b.i.d., which we will continue. She will be discharged later today, and I will see her in the office on February 03, which is 1 week. MMRODOLFOL / IJN: [id number] /
[2022-01-28] MEDS ORDERED: SODIUM CHLORIDE 0.9% 500 ML 500 ML IV ONE (14:02)
[2022-01-28 16:01] VITALS: BP 136/62; PULSE 62
--- NOTE | 2022-01-28 18:30 | CA ---
Transthoracic Echo Report Name: Arcelia Moya Age: 71 Gender: F : 1950 Exam Date: 01/28/2022 11:37 Exam Location: [facility] Ht (in): 62 Wt (lb): 225 Ordering Physician: Carloz Siddiqi DO Attending/Referring Phys: [facility] Director Diane Steward RDCS Procedure CPT: Indications: POST HEART CATH FOR DR PAGAN Cardiac Hx: Technical Quality: Very technically difficult study Contrast 1: Lumason Total Dose (mL): 4 Contrast 2: Total Dose (mL): MEASUREMENTS (Male / Female) Normal Values 2D ECHO LV Diastolic Diameter PLAX 4.7 cm 4.2 - 5.9 / 3.9 - 5.3 cm LV Systolic Diameter PLAX 3.8 cm IVS Diastolic Thickness 1.3 cm 0.6 - 1.0 / 0.6 - 0.9 cm LVPW Diastolic Thickness 1.7 cm 0.6 - 1.0 / 0.6 - 0.9 cm LV Relative Wall Thickness 0.6 M-MODE Aortic Root Diameter MM 2.6 cm MV E Point Septal Separation 0.5 cm DOPPLER MV Area PHT 2.8 cm??? Mitral E Point Velocity 53.5 cm/s Mitral A Point Velocity 105.5 cm/s Mitral E to A Ratio 0.5 MV Deceleration Time 272.1 ms MV E' Velocity 5.0 cm/s Mitral E to MV E' Ratio 10.7 FINDINGS Left Ventricle Left ventricular ejection fraction is estimated at 55-60%. Mildly increased left ventricular wall thickness.left ventricular cavity size normal. Right Ventricle Normal right ventricular size and function.catheter/pacemaker wire in the right ventricular cavity. Right Atrium Normal right atrial size. Left Atrium Normal left atrial size. Mitral Valve Mitral valve thickened. Mild mitral regurgitation. Aortic Valve Aortic valve not well visualized. Tricuspid Valve Tricuspid valve not well visualized. Pulmonic Valve Pulmonic valve not well visualized. Pericardium Echo free space anterior to the right ventricle likely represents a fat pad. Aorta Normal size aortic root and proximal ascending aorta. CONCLUSIONS 1. Normal ventricle size and systolic function 2. A wire was noted in the right ventricle 3. Mild mitral regurgitationlumason ECHO contrast used for improved visualization of the endocardial borders (inadequate visualization of two or more contiguous segments). Previewed by: Dr. Henok Benson MD (Electronically Signed) Final Date: 28 January 2022 18:29
== END 2022-01-28 15:38 | disposition home or self-care (01) ==
LOC: CATHCVL 06:40
PROVIDERS: ATTEND Internal Medicine Interventional Cardiology
DX: I25.10 Atherosclerotic heart disease of native coronary artery without angina pectoris (principal); I48.0 Paroxysmal atrial fibrillation; I34.0 Nonrheumatic mitral (valve) insufficiency; Z79.01 Long term (current) use of anticoagulants; I49.5 Sick sinus syndrome; I10 Essential (primary) hypertension; E78.5 Hyperlipidemia, unspecified; Z95.0 Presence of cardiac pacemaker; Z85.71 Personal history of Hodgkin lymphoma; Z92.21 Personal history of antineoplastic chemotherapy
CPT/HCPCS: 93458; 85025; C8929; C1769 ×2; C1894; J2250; J2001; J1644; Q9950; Q9967; 93306